=== PATIENT | male | born 1945 | race Caucasian/White ===

== ENCOUNTER 2023-08-21 21:34 | Emergency (ER) | payer MEDICARE, SELFPAY ==
[2023-08-21 21:40] VITALS: BP 121/73; PULSE 52; RESP 16; TEMP 36; O2SAT 98; BMI 22.3
--- NOTE | 2023-08-21 21:55 | CRLHL7_ITS ---
For Patients: As a result of the 21st Century Cures Act, medical imaging exams and procedure reports are released immediately into your electronic medical record. You may view this report before your referring provider. If you have questions, please contact your health care provider. Indication: RT FLANK PAIN Technique: CT abdomen/pelvis without IV contrast. Comparison: None Findings: Lower thorax: The inferior heart is at the upper limits of normal in size. No pericardial effusion. Coronary artery calcifications. No focal airspace consolidation, pleural effusion, or pneumothorax. Minimal bibasilar linear atelectatic changes. No suspicious pulmonary nodules or masses. Abdomen/pelvis: The liver, gallbladder and biliary system, spleen, pancreas, and bilateral adrenal glands are unremarkable in appearance. The kidneys are normal in size. No obvious renal masses. The ureters are difficult to track on this exam. There is a punctate 3 millimeter calcification seen just lateral to the IVC (series number 2, image 73), which may represent a small obstructing stone in the right ureter with mild right hydronephrosis. Suspected small parapelvic cysts on the left. The bladder is decompressed and not well evaluated on this exam. The prostate and visualized external genitalia are within normal limits. Small hiatal hernia. No evidence of bowel obstruction or inflammation. The appendix is normal in appearance. Redundant colon. No free air. No pathologically enlarged lymph nodes throughout the abdomen or pelvis. Minimal calcific atherosclerosis of the aortoiliac system. No abdominal aortic aneurysm. Mild ectasia of the bilateral common iliac arteries. Soft tissue/musculoskeletal: Small fat containing umbilical hernia. No acute fracture or malalignment. 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 There are degenerative changes seen in the spine. No suspicious osseous lesions. Impression: 1. The ureters are difficult to track on this exam. There is a punctate 3 millimeter calcification seen just lateral to the IVC (series number 2, image 73), which may represent a small obstructing stone within the right ureter with mild right hydronephrosis. 2. Likely a few simple appearing parapelvic cyst in the left kidney, incompletely characterized, to correlate with prior imaging if available. Otherwise, these could be further assessed with an outpatient CT or MR with a renal protocol. Please note that all CT scans at this facility use dose modulation, iterative reconstruction, and/or weight-based dosing when appropriate to reduce radiation dose to as low as reasonably achievable. Dictated by Huan Patterson MD @ 08/21/2023 11:07:24 PM (Electronically Signed)
--- NOTE | 2023-08-21 22:03 | ED.GENADULT ---
HPI - General Adult General Chief complaint: Nausea/Vomiting Stated complaint: Vomiting, back pain Time Seen by Provider: 08/21/23 21:47 Source: patient Mode of arrival: ambulatory Limitations: no limitations History of Present Illness HPI narrative: 78-year-old male history of atrial fibrillation on chronic anticoagulation therapy comes in today with vomiting flank pain. He states that it started about an hour ago. He states that he had dinner was resting at home when all of a sudden he felt very nauseated and vomited multiple times. Soon as he finished vomiting he felt this acute mid back pain that was bilateral however was much stronger on the right. He states that now he feels better, the vomiting has resided but the right flank pain remains. He denies chest pain or shortness of breath. He denies anterior abdominal pain. The flank pain does not really radiate anywhere. He states that he has chronic difficulty urinating - he no longer has an urge to urinate so he just has to empty his bladder every few hours there remembering to do so. He states that he has not urinated since this episode happen, he does not endorse any blood in his urine earlier today. No diarrhea or constipation. He is not lightheaded or dizzy. He denies a headache. He denies any vertiginous symptoms. He denies any fevers or chills, but states that he feels a little chilly in the ER. Related Data Home Medications ?Medication ?Instructions ?Recorded ?Confirmed atorvastatin .ROUTE 08/21/23 warfarin .ROUTE 08/21/23 Previous Rx's ?Medication ?Instructions ?Recorded tamsulosin 0.4 mg capsule (Flomax) 0.4 mg PO DAILY #30 caps 08/21/23 Allergies Allergy/AdvReac Type Severity Reaction Status Date / Time No Known Drug Allergies Allergy Verified 08/21/23 21:45 Review of Systems Status of ROS: Reports: 10 or more systems reviewed and unremarkable except as noted in History and below PFSH PFS Social History Non-prescribed substance use: denies use Exam Narrative: Exam Narrative: Well-nourished well-developed patient in no acute distress. Alert and oriented. Answers questions appropriately. Mood and affect are appropriate. Thoughts are goal oriented and rational. No tangential or magical thinking noted. Patient speaks in full sentences without needing to catch his breath. HEENT: Normocephalic atraumatic. Pupils are equally round reactive to light. Extraocular muscles are intact. Conjunctivae are moist without any icterus noted. Moist mucous membranes. Posterior pharynx is normal. Neck is soft. Cardiovascular: Heart is irregularly irregular, S1 and S2 are present heart sounds are distant. Lungs: Clear to auscultation bilaterally no wheezes rhonchi or rales are appreciated. Patient takes deep breaths without any discomfort. Abdomen: Soft and nontender nondistended with normal bowel sounds. No guarding or rebound. Patient does have right-sided CVA tenderness, none on the left. Extremities: Bilateral lower extremities are without edema. Skin: Well perfused without any obvious rashes. Const: Vital Signs, click to edit/add: Vital Signs - 24 hr 08/21/23 21:40 Temperature 96.8 F L Pulse Rate [Pulse Oximeter] 52 L Respiratory Rate 16 Blood Pressure [Ri ght Upper Arm] 121/73 Pulse Oximetry 98 Oxygen Delivery Me thod Room Air Course Course ED Course: IV is established and patient received a low dose of Toradol and IV fluids. Lactate is elevated at 2.8. CBC does not show an elevated white cell count, normal hemoglobin at 14.4, normal platelet count. Chemistries are unremarkable, total bilirubin slightly elevated at 1.9. LFTs are unremarkable. CRP is less than 0.5. Normal lipase. Abdominal CT does show probable 3 mm stone on the right side with mild hydronephrosis. Patient feeling significantly improved after treatment. Vital Signs Vital signs: Initial Vital Signs Temperature 96.8 F L 08/21/23 21:40 Temperature Source Temporal Artery Scan 08/21/23 21:40 Pulse Rate 52 L 08/21/23 21:40 Pulse Rhythm Irregular 08/21/23 21:40 Respiratory Rate 16 08/21/23 21:40 Blood Pressure 121/73 08/21/23 21:40 Blood Pressure Mean 89 08/21/23 21:40 Blood Pressure Position Sitting 08/21/23 21:40 Pulse Oximetry 98 08/21/23 21:40 Oxygen Delivery Method Room Air 08/21/23 21:40 Vital Signs Temperature 96.8 F L 08/21/23 21:40 Pulse Rate 52 L 08/21/23 21:40 Respiratory Rate 16 08/21/23 21:40 Blood Pressure 121/73 08/21/23 21:40 Pulse Oximetry 98 08/21/23 21:40 Oxygen Delivery Method Room Air 08/21/23 21:40 Temperature 96.8 F L 08/21/23 21:40 Pulse Rate 52 L 08/21/23 21:40 Respiratory Rate 16 08/21/23 21:40 Blood Pressure 121/73 08/21/23 21:40 Pulse Oximetry 98 08/21/23 21:40 Oxygen Delivery Method Room Air 08/21/23 21:40 Medications Administered Medications: Generic Name Dose Route Start Last Admin Trade Name Freq PRN Reason Stop Dose Admin Sodium Chloride 1,000 mls @ 1,000 mls/hr 08/21/23 22:00 08/21/23 22:13 0.9 % Sodium Chloride 1000 Ml IV 08/21/23 22:59 1,000 mls/hr .Q1H [place] Administration Ketorolac Tromethamine 15 mg 08/21/23 21:56 08/21/23 22:17 Ketorolac 15 Mg/Ml Inj IVP 08/21/23 21:57 15 mg ONCE ONE Administration Medical Decision Making MDM Narrative Medical decision making narrative: 78-year-old male with a right sided kidney stone. Will send the patient home with hydrocodone, Flomax. Follow-up as needed. Lab Data Lab results reviewed: Yes I reviewed the patient's lab results Labs: Lab Results 08/21/23 Range/Units 22:09 WBC 7.74 (4.50-11.00) K/uL RBC 4.20 L (4.30-5.90) m/uL Hgb 14.4 (13.5-17.5) gm/dL Hct 43.2 (37.0-53.0) % MCV 103 H (80-100) fL MCH 34 (26-34) pg MCHC 33 (32-36) gm/dL RDW Coeff of Cristina 13.0 (11.5-15.5) % Plt Count 163 (140-440) K/uL Neut % (Auto) 82.4 H (42.0-72.0) % Lymph % (Auto) 9.8 L (20-44) % [place] % (Auto) 5.6 (0.0-11.0) % Eos % (Auto) 0.9 (0.0-7.0) % Baso % (Auto) 0.1 (0.0-3.0) % Neut # (Auto) 6.40 (1.7-7.0) K/uL Lymph # (Auto) 0.80 L (0.90-2.90) K/uL [place] # (Auto) 0.40 (0.00-0.90) K/UL Eos # (Auto) 0.07 (0.00-0.50) K/uL Baso # (Auto) 0.01 (0.00-0.30) K/uL Abs Immat Gran (auto) 0.09 (0.00-0.30) K/uL Imm/Tot Granulo (auto) 1.2 % Sodium 139 (135-149) mmol/L Potassium 4.3 (3.6-5.1) mmol/L Chloride 105 (96-114) mmol/L Carbon Dioxide 25 (20-32) mmol/L Anion Gap 9 (7-15) mEq/L BUN 19 (7-30) mg/dL Creatinine 1.2 (0.5-1.5) mg/dL Estimated Creat Clear 52.92 Estimated GFR 62 ml/min Glucose 168 H (60-115) mg/dL Lactate 2.8 H (0.5-1.9) mmol/L Calcium 9.6 (8.4-10.6) mg/dL Total Bilirubin 1.9 H (0.1-1.5) mg/dL Direct Bilirubin 0.3 (0.0-0.5) mg/dL AST 47 H (12-35) U/L ALT 35 (4-50) U/L Alkaline Phosphatase 77 (40-150) U/L C-Reactive Protein < 0.5 L (0.5-1.0) mg/dL Total Protein 7.5 (6.0-8.3) g/dL Albumin 5.0 (3.3-5.0) g/dL Lipase 124 (23-300) U/L Imaging Data CT scan - abdomen: Attestation: I have reviewed the pertinent imaging results. Radiologist's impression: CT abdomen/pelvis without IV contrast. Comparison: None Findings: Lower thorax: The inferior heart is at the upper limits of normal in size. No pericardial effusion. Coronary artery calcifications. No focal airspace consolidation, pleural effusion, or pneumothorax. Minimal bibasilar linear atelectatic changes. No suspicious pulmonary nodules or masses. Abdomen/pelvis: The liver, gallbladder and biliary system, spleen, pancreas, and bilateral adrenal glands are unremarkable in appearance. The kidneys are normal in size. No obvious renal masses. The ureters are difficult to track on this exam. There is a punctate 3 millimeter calcification seen just lateral to the IVC (series number 2, image 73), which may represent a small obstructing stone in the right ureter with mild right hydronephrosis. Suspected small parapelvic cysts on the left. The bladder is decompressed and not well evaluated on this exam. The prostate and visualized external genitalia are within normal limits. Small hiatal hernia. No evidence of bowel obstruction or inflammation. The appendix is normal in appearance. Redundant colon. No free air. No pathologically enlarged lymph nodes throughout the abdomen or pelvis. Minimal calcific atherosclerosis of the aortoiliac system. No abdominal aortic aneurysm. Mild ectasia of the bilateral common iliac arteries. Soft tissue/musculoskeletal: Small fat containing umbilical hernia. No acute fracture or malalignment. 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 There are degenerative changes seen in the spine. No suspicious osseous lesions. Impression: 1. The ureters are difficult to track on this exam. There is a punctate 3 millimeter calcification seen just lateral to the IVC (series number 2, image 73), which may represent a small obstructing stone within the right ureter with mild right hydronephrosis. 2. Likely a few simple appearing parapelvic cyst in the left kidney, incompletely characterized, to correlate with prior imaging if available. Otherwise, these could be further assessed with an outpatient CT or MR with a renal protocol. Discharge Plan Discharge Clinical Impression: Kidney stone Patient Disposition: Home, Self-Care Condition: Stable Additional Instructions: Start taking Flomax once daily. Okay to take pain medication as needed. This pain medication is a narcotic and can cause dizziness, drowsiness, increased risk of fall and constipation-be careful if/ when you take it. This stone is small enough that it should pass on its own. If you develops intractable pain, cannot keep down any fluids for long periods of time because of intractable vomiting or you develop a fever-you should return to the ER right away. Follow-up with your primary care provider in approximately 1 week. [place] sent to [facility], 8 tablets. Flomax sent to pharmacy. Prescriptions: New tamsulosin [Flomax] 0.4 mg capsule 0.4 mg PO DAILY Qty: 30 0RF No Action warfarin .ROUTE atorvastatin [Lipitor] .ROUTE Follow Up/Referrals: Hector Treadwell MD [Primary Care Provider] - Stand Alone Forms: [employer] Info Instructions
[2023-08-21 22:13] LABS: Lactate* 2.8 mmol/L (0.5-1.9)
[2023-08-21] MEDS: 0.9 % SODIUM CHLORIDE 1000 ml 1,000 ML IV (22:13)
[2023-08-21] MEDS: KETOROLAC 15 MG/ML inj IVP (22:17)
[2023-08-21 22:40] LABS: Basophils Absolute Auto 0.01 K/uL (0.00-0.30); Basophils Percent Auto 0.1 % (0.0-3.0); Eosinophils Absolute Auto 0.07 K/uL (0.00-0.50); Eosinophils Percent Auto 0.9 % (0.0-7.0); Hematocrit 43.2 % (37.0-53.0); Hemoglobin* 14.4 gm/dL (13.5-17.5); Immature Granulocytes Abs Auto 0.09 K/uL (0.00-0.30); Immature Granulocytes Pct Auto 1.2 %; Lymphocytes Percent Auto 9.8 % (20-44); Mean Corpuscular HGB Conc 33 gm/dL (32-36); Mean Corpuscular Hemoglobin 34 pg (26-34); Mean Corpuscular Volume 103 fL (80-100); Monocytes Percent Auto 5.6 % (0.0-11.0); Neutrophils Percent Auto 82.4 % (42.0-72.0); Platelet Count* 163 K/uL (140-440); White Blood Count* 7.74 K/uL (4.50-11.00)
[2023-08-21 22:42] LABS: Chloride* 105 mmol/L (96-114); Slide Review Reflex No
[2023-08-21 22:43] LABS: Potassium* 4.3 mmol/L (3.6-5.1); Sodium* 139 mmol/L (135-149)
[2023-08-21 22:45] LABS: Creatinine* 1.2 mg/dL (0.5-1.5); Est. Creatinine Clearance* 52.92; Estimated Glomerular Filt Rate 62 ml/min
[2023-08-21 22:46] LABS: Alanine Aminotransferase* 35 U/L (4-50); Alkaline Phosphatase* 77 U/L (40-150); Anion Gap 9 mEq/L (7-15); Aspartate Amino Transferase* 47 U/L (12-35); Bilirubin Direct* 0.3 mg/dL (0.0-0.5); Bilirubin Total* 1.9 mg/dL (0.1-1.5); Blood Urea Nitrogen* 19 mg/dL (7-30); Calcium* 9.6 mg/dL (8.4-10.6); Carbon Dioxide* 25 mmol/L (20-32); Glucose* 168 mg/dL (60-115); Lipase* 124 U/L (23-300); Total Protein* 7.5 g/dL (6.0-8.3)
[2023-08-21 22:49] LABS: C Reactive Protein* < 0.5 mg/dL (0.5-1.0)
== END 2023-08-21 23:30 | disposition home or self-care (01) ==
PROVIDERS: Emergency Provider Family Medicine; PCP Family Medicine
DX: N20.0 Calculus of kidney (principal)
CPT/HCPCS: 36415; 74176; 80048; 80076; 81001; 83605; 83690; 85025; 86140; 96361; 96374; 99284; J1885; J7030

== ENCOUNTER 2025-02-20 10:35 | Emergency (ER) | payer MEDICARE, SELFPAY ==
[2025-02-20 10:38] VITALS: BP 143/86; PULSE 82; RESP 16; TEMP 36.4; O2SAT 98
--- OUTSIDE RECORDS SUMMARY | 2025-02-20 10:38 | XMS_ITS | Clinical Summary ---
Author Organization [facility] Address [address] [place] [address] Care Team Providers Care Linen Tech Name Role Phone Hector Treadwell MD Primary Care Provider Allergies No known active allergies Medications MedicationSigDispense QuantityRefillsLast FilledStart DateEnd DateStatus fluocinonide 0.05% topical (LIDEX) 0.05 % gel Indications:Dermatitis due to food taken internallyAPPLY TOPICALLY TO AFFECTED AREA(S) 2 TIMES DAILY IF NEEDED. 30 g 4Active MULTIVITAMIN ORAL Take by mouth.Active latanoprost (XALATAN) 0.005 % ophthalmic solution Place 1 Drop into both eyes at bedtime.4Active atorvastatin (LIPITOR) 20 mg tablet Indications:Mixed hyperlipidemiaTake 1 Tablet (20 mg) by mouth at bedtime. 90 Tablet 5Active warfarin (COUMADIN) 5 mg tablet Indications:Chronic atrial fibrillation (HC),Anticoagulation monitoring, INR range 2-3TAKE BY MOUTH 5 MG (5 MG X 1) EVERY DAY IN THE EVENING OR DIRECTED 90 Tablet 5Active warfarin (COUMADIN) 5 mg tablet Indications:Chronic atrial fibrillation (HC),Anticoagulation monitoring, INR range 2-3Take by mouth 5 mg (5 mg x 1) every day in the evening OR as directed 100 Tablet 5104/18/2024Discontinued Active Problems ProblemNoted DateDiagnosed DateBasal cell carcinoma (BCC) of skin of right ear 04/13/2024Kiraheel melendez09/03/2023 Overview (09/03/2023): 08/2023- passed on own, not able to collect stone Primary osteoarthritis of left knee10/26/2022Family history of early CAD 09/06/2021 Overview (09/06/2021): Father, aunt, uncle (paternal) Mixed pnmwhupldgdjns47/29/2020Chronic atrial qwoigaxmjzri55/29/2020 Anticoagulation monitoring, INR range 2-305Prostate vdwvre9408/08/2017 Cancer Staging: Clinical: Unsigned Overview (06/27/2020): S/p prostatectomy 2017 - follows with [place] [facility]. PSA raised 2020- On radiation Radiation colitis Encounters DateTypeDepartmentCare LhkySpmpgnkfroh06/08/2025Refill [address] [address] Hector Treadwell MD Refill Request (Warfarin)02/02/2025Telephone [facility] [address] [facility] [address] [place] [address] Cardiology, Anw Appointment (/)01/20/2025 11:40 AM CSTOrders Only [facility] [address] [place] [address] <No scans attached>01/20/2025 10:50 AM CSTAncillary Procedure [facility] [address] [place] [address] 01/20/2025 10:15 AM CSTOrders Only [address] [address] <No scans attached>01/20/2025 9:45 AM CSTOffice Visit [address] [address] Shannon Pepe PA Hematuria (Blood in urine started 01/14/25, fresh red color at start of stream and then turns brownat the end of urine stream, this morning urine had blood clots, no pain and no odor )01/20/2025Telephone [facility] [address] [place] [address] Shannon Pepe PA Hnmrowl2201/20/2025nticoagulation (warfarin) [address] [address] Nurse, Ahg Anticoag Nthsacsaeefbewq43/12/3530Ywdzno64/11/2025Nurse Triage [facility] [address] [place] [address] Hector Treadwell MD Fhldrpfwb64/14/2025Telephone [address] [address] Hector Treadwell MD Anticoagulation (review)12/18/2024 11:30 AM CDTOrders Only [address] [address] Lab12/18/2024nticoagulation (warfarin) [address] [address] Nurse, g Anticoag Lcvdpfhlgytqzko18/10/2025Travelfrom Last 3 Months Immunizations ImmunizationAdministration DatesNext DueAMB INFLUENZA IIV3 (AGE 65+ YRS) PF (Flu Clinic Only)5COVID-19 vaccine (Moderna 100mcg/0.5mL) PF, V06/02/2020, 05/06/2020Influenza A (H1N1), Ewxwlqpuwja52/18/2010Influenza, High-dose Gskbgrptcae20/22/2024,12/05/2018,01/03/2018,12/14/2016,01/12/2016Influenza, High-dose Quadrivalent Dlzoiaymakh23/17/2023,12/22/2021,12/25/2019Influenza, Inactivated AIIV4 (Age 65+ Years) Preserv Free02/21/2021neumococcal Conj 20- valent (Prevnar 20)04/13/2024Pneumococcal Poly,23-Valent (Pneumovax)05/23/2011 RSV, Recombinant ADJ Reconstituted (Arexvy 120MCG/0.5mL)01/25/2023Tdap07/03/2017 Zoster (Shingrix-RZV, recombinant)12/05/2018,08/22/2018 Family History Medical HistoryRelationNameCommentsCoronary artery diseaseFatherdied 59Relation NameStatusCommentsFather Social History Tobacco UseTypesPacks/DayYears UsedDateSmoking Tobacco: NeverSmokeless Tobacco: NeverAlcohol UseStandard Drinks/WeekCommentsYes4 (1 standard drink = 0.6 oz pure alcohol)4/weekPHQ-2AnswerDate RecordedPHQ-2 TOTAL CLDLR706Social ConnectionsAnswerDate RecordedDo you often feel lonely or isolated from those around you?lcohol UseAnswerDate RecordedHow often do you have a drink containing alcohol?How many drinks containing alcohol do you have on a typical day when you are drinking?How often do you have five or more drinks on one occasion?Financial Resource StrainAnswer Date RecordedDifficulty of Paying Living Lcgaatmm615/03/2025Difficulty of Paying Living ExpensesNot on file04/13/2024Food InsecurityAnswerDate RecordedDo you worry your food will run out before you are able to buy more? Transportation NeedsAnswerDate RecordedDoes lack of transportation keep you from medical appointments?Does lack of transportation keep you from work, meetings or getting things that you need?Housing StabilityAnswerDate RecordedWhat is your housing situation today?UtilitiesAnswerDate RecordedDo you have trouble paying for utilities (for example, heat, electricity, water, phone)?Sex and Gender InformationValueDate RecordedSex Assigned at BirthNot on fileLegal JeoDlhr8803/24/2012 8:08 AM HADOOP JAVA DEVELOPER Gender IdentityNot on fileSexual OrientationNot on file Last Filed Vital Signs Vital SignReadingTime TakenCommentsBlood Ucrlgxrj355/8801/20/2025 9:43 AM HADOOP JAVA DEVELOPER Mxpkw288401/20/2025 9:43 AM MUKPvljjgwvvvx40.7 ??C (98.1 ??F)01/20/2025 9:43 AM CSTRespiratory Fsrz104208/24/2024 8:13 AM CDTOxygen Zmxtjgrfgb133%01/20/2025 9:43 AM CSTInhaled Oxygen Concentration--Utrefe49.9 kg (174 lb)01/20/2025 9:43 AM HADOOP JAVA DEVELOPER Ddkucu781.3 cm (5' 9)01/20/2025 9:43 AM CSTBody Mass Index25.7103/22/2024 9:43 AM HADOOP JAVA DEVELOPER Plan of Treatment DateTypeDepartmentCare Team (Latest Contact Info)Rtyxhmtkoem46/06/2026 10:15 AM CSTOrders Only [facility] [address] [place] [address] 04/01/2025 9:30 AM CSTOffice Visit [facility] [address] [facility] [address] [place] [address] Maciej Neri MD [address] [facility] [address] [place] [address] Health MaintenanceDue DateLast DoneCommentsDepression screening for age 12+ , 03/21/2023, 03/21/2023, Additional history existsMedicare Wellness for age 65+, 03/20/2023, 06/28/2021, Additional history existsCOVID-19 vaccine series (8 - Moderna risk 2024- season) , 01/31/2024, 01/25/2023, Additional history existsBMI (ht and wt on same day) for age 18+, 04/13/2024, 03/20/2023, Additional history existsTetanus sydaliq80Zoster (shingles) series for age 50+Mpvncfqza40/27/2019, 08/22/2018RSV vaccine for adults or xthjmflixNwkauajgp24/17/2023Hepatitis C screening for age 18-79Completed 04/13/2024Pneumococcal series for age 50+Vqodyvhgx28/03/2025, 05/23/2011 Influenza BcokgvaGocyfjdhi41/24/2025, 01/31/2024, 02/21/2021, Additional history existsHepatitis B series for 19+Aged OutNo longer eligible based on patient's age to complete this topic Procedures Procedure NamePriorityDate/TimeAssociated DiagnosisCommentsCREATININE,ISTAT Phdphml8601/20/2025 10:53 AM HADOOP JAVA DEVELOPER Observation or evaluation for suspected condition CT ABDOMEN PELVIS WSTAT103/22/2024 10:50 AM HADOOP JAVA DEVELOPER Prostate cancer (HC) Painless hematuria INR,YDYIDkjxcsd80/12/2025 10:08 AM HADOOP JAVA DEVELOPER Chronic atrial fibrillation (HC) Anticoagulation monitoring, INR range 2-3 URINALYSIS XVDUFLTHFEMFeyfkln90/12/2025 10:06 AM HADOOP JAVA DEVELOPER Painless hematuria URINE VKCIGSXZroyfst24/12/2025 10:06 AM HADOOP JAVA DEVELOPER Painless hematuria INR,JBTMWpvbhos31/10/2025 11:14 AM CDT Chronic atrial fibrillation (HC) Anticoagulation monitoring, INR range 2-3 ANTI POSClkrpgo60/03/2025 3:08 PM HADOOP JAVA DEVELOPER Encounter for hepatitis C screening test for low risk patient from Last 3 Months or Most Recently Relevant to Health Maintenance Results * POCT Creatinine (01/20/2025 10:53 AM HADOOP JAVA DEVELOPER)ComponentValueRef RangeTest Method Analysis TimePerformed AtPathologist SignaturePOCT,CREATININE, ISTAT1.20.6 - 1.3 mg/dL01/20/2025 11:04 AM [facility] Specimen (Source)Anatomical Location / LateralityCollection Method / Volume Collection TimeReceived TimeBloodBLOOD SPECIMEN / UnknownQuest Collect / Narmvud9101/20/2025 10:53 AM CST01/20/2025 10:53 AM HADOOP JAVA DEVELOPER Narrative Authorizing ProviderResult TypeResult StatusShannon Pepe PACHEMISTRYFinal ResultPerforming OrganizationAddressCity/State/ZIP CodePhone Number [facility] [address] [place] [address], [facility] [address] [place] [address], [place] * CT ABDOMEN PELVIS W (01/20/2025 10:50 AM HADOOP JAVA DEVELOPER)Anatomical RegionLaterality ModalityAbdomen, Pelvis, AORTA, LIVER, SPLEENComputed TomographySpecimen (Source)Anatomical Location / LateralityCollection Method / VolumeCollection TimeReceived Time01/20/2025 11:24 AM HADOOP JAVA DEVELOPER Impressions 01/20/2025 11:24 AM HADOOP JAVA DEVELOPER 1. Significantly enlarged heart. This is multichamber enlargement most notably involving the right heart. Bibasilar opacities probably atelectasis or scarring. 2. Mild ascites, primarily perihepatic. The etiology of this is uncertain the might be related to right heart disease. 3. No renal cortical mass. No hydronephrosis or hydroureter. The bladder is decompressed. There is bladder wall thickening which may be due to cystitis. 4. Faint area of abnormal enhancement in the left lateral bladder wall. This does not appear to be excreted contrast from the kidneys and could represent a subtle enhancing lesion in the wall of the bladder. Follow-up direct evaluation is recommended. 5. The prostate appears to be surgically absent. 6. No lymphadenopathy. No evidence of osseous metastatic disease. Please note that all CT scans at this facility use dose modulation, iterative reconstruction, and/or weight-based dosing when appropriate to reduce radiation dose to as low as reasonably achievable. Dictated by Andre Ray MD @ 01/20/2025 11:24:44 AM (Electronically Signed) Narrative 01/20/2025 11:24 AM HADOOP JAVA DEVELOPER For Patients: As a result of the Cures Act, medical imaging exams and procedure reports are released immediately into your electronic medical record. You may view this report before your referring provider. If you have questions, please contact your health care provider. INDICATION: Prostate cancer now with painless hematuria. COMPARISON: None TECHNIQUE: CT examination of the abdomen and pelvis was performed following the uneventful intravenous administration of 80 cc of Omnipaque 350. Thin section axial images were obtained from the lung bases through the pubic symphysis. ??Oral contrast was not administered. ?? Please note that all CT scans at this facility use dose modulation, iterative reconstruction, and/or weight-based dosing when appropriate to reduce radiation dose to as low as reasonably achievable. FINDINGS: LUNG BASES: The heart is significantly enlarged. This is multi chamber enlargement but most notablyinvolves the right heart.Bibasilar opacities are probably due to atelectasis or scarring. LIVER/BILIARY SYSTEM:The liver is normal in size and configuration. There is no focal mass and there is no intra- or extra hepatic biliary ductal dilatation.Trace ascites, primarily perihepatic. The etiology of this ascites is not visible on the exam. The gallbladder appears normal ADRENALS: Normal KIDNEYS, URETERS and BLADDER:The kidneys are normal in size. There is no visible renal cortical mass or calculus. The ureters are of normal caliber. The bladder is not well evaluated. The bladder is decompressed with wall thickening which can be seen in cystitis. On axial images 193 through 195, there is a vague hyperdensity associated with the left lateral wall of the bladder. Since the contrasthas not yet entered the collecting system on this exam, I am presuming that this is an enhancing mucosal abnormality which should be further evaluated directly. SPLEEN:Normal appearance. PANCREAS: Appears normal. RETROPERITONEUM and MESENTERY: No mass or adenopathy. Atherosclerosis. Diffuse ectasia of the aortoiliac system. No aortic aneurysm. No retroperitoneal or pelvic lymphadenopathy noted. GASTROINTESTINAL SYSTEM: There is no evidence of diverticulitis, colitis, mechanical obstruction, or appendicitis. The small bowel as visualized appears normal.Diffuse colonic fecal retention. PELVIS: The prostate appears to be surgically absent.. OSSEOUS STRUCTURES and ABDOMINAL WALL: No evidence of osseous metastatic disease. There is bilateral L5 spondylolysis without evidence of spondylolisthesis.No significant abdominal wall defect. OTHER: No free fluid or free air. Procedure Note Andre Ray MD - 01/20/2025 For Patients: As a result of the 21st Century Cures Act, medical imagingexams and procedure reports are released immediately into your electronicmedical record. You may view this report before your referring provider.If you have questions, please contact your health care provider. INDICATION: Prostate cancer now with painless hematuria. COMPARISON: None TECHNIQUE: CT examination of the abdomen and pelvis was performed following theuneventful intravenous administration of 80 cc of Omnipaque 350. Thinsection axial images were obtained from the lung bases through the pubicsymphysis. Oral contrast was not administered. Please note that all CT scans at this facility use dose modulation,iterative reconstruction, and/or weight-based dosing when appropriate toreduce radiation dose to as low as reasonably achievable. FINDINGS: LUNG BASES: The heart is significantly enlarged. This is multi chamber enlargement but most notably involves the right heart.Bibasilar opacitiesare probably due to atelectasis or scarring. LIVER/BILIARY SYSTEM:The liver is normal in size and configuration. Thereis no focal mass and there is no intra- or extra hepatic biliary ductal dilatation.Trace ascites, primarily perihepatic. The etiology of thisascites is not visible on the exam. The gallbladder appears normal ADRENALS: Normal KIDNEYS, URETERS and BLADDER:The kidneys are normal in size. There is novisible renal cortical mass or calculus. The ureters are of normalcaliber. The bladder is not well evaluated. The bladder is decompressedwith wall thickening which can be seen in cystitis. On axial images 193through 195, there is a vague hyperdensity associated with the leftlateral wall of the bladder. Since the contrast has not yet entered thecollecting system on this exam, I am presuming that this is an enhancingmucosal abnormality which should be further evaluated directly. SPLEEN:Normal appearance. PANCREAS: Appears normal. RETROPERITONEUM and MESENTERY: No mass or adenopathy. Atherosclerosis.Diffuse ectasia of the aortoiliac system. No aortic aneurysm. Noretroperitoneal or pelvic lymphadenopathy noted. GASTROINTESTINAL SYSTEM: There is no evidence of diverticulitis, colitis, mechanical obstruction, or appendicitis. The small bowel as visualizedappears normal.Diffuse colonic fecal retention. PELVIS: The prostate appears to be surgically absent.. OSSEOUS STRUCTURES and ABDOMINAL WALL: No evidence of osseous metastaticdisease. There is bilateral L5 spondylolysis without evidence ofspondylolisthesis.No significant abdominal wall defect. OTHER: No free fluid or free air. IMPRESSION: 1. Significantly enlarged heart. This is multichamber enlargement mostnotably involving the right heart. Bibasilar opacities probablyatelectasis or scarring. 2. Mild ascites, primarily perihepatic. The etiology of this is uncertainthe might be related to right heart disease. 3. No renal cortical mass. No hydronephrosis or hydroureter. The bladderis decompressed. There is bladder wall thickening which may be due tocystitis. 4. Faint area of abnormal enhancement in the left lateral bladder wall.This does not appear to be excreted contrast from the kidneys and couldrepresent a subtle enhancing lesion in the wall of the bladder. Follow-updirect evaluation is recommended. 5. The prostate appears to be surgically absent. 6. No lymphadenopathy. No evidence of osseous metastatic disease. Please note that all CT scans at this facility use dose modulation,iterative reconstruction, and/or weight-based dosing when appropriate toreduce radiation dose to as low as reasonably achievable. Dictated by Andre Ray MD @ 01/20/2025 11:24:44 AM (Electronically Signed) Authorizing ProviderResult TypeResult StatusShannon Pepe PACTFinal Result * (ABNORMAL) INR - POCT [95441.2] - Standing Order (01/20/2025 10:08 AM HADOOP JAVA DEVELOPER) Only the most recent of2 resultswithin the time period is included. ComponentValueRef RangeTest MethodAnalysis TimePerformed AtPathologist Signature INR2.3(H)ratio01/20/2025 10:18 AM [facility]: INRs >2.9 may be falsely elevated in patients receiving either unfractionated Heparin or Low Molecular Weight Heparin. Follow up testing in a hospital laboratory may be helpful if clinically indicated. INR results of > or = 5.0 should be verified using the standard venipuncture procedure. Reference Range ? 0.9-1.1 Moderate-intensity Warfarin Therapy 2.0-3.0 Higher-intensity Warfarin Therapy ?? 3.0-4.0 PROTHROMBIN TIMEP27.9(H)10.5 - 13.1 sec01/20/2025 10:18 AM [facility]: Point of care fingerstick Prothrombin Time/INR results may vary from venous Prothrombin Time/INR methodologies. Any results exhibiting inconsistency with the patient's clinical status should be repeated using a venous Prothrombin Time/INR method. Specimen (Source)Anatomical Location / LateralityCollection Method / Volume Collection TimeReceived TimeBloodBLOOD SPECIMEN / UnknownQuest Collect / Unknown 01/20/2025 10:08 AM CST01/20/2025 10:08 AM HADOOP JAVA DEVELOPER Narrative Authorizing ProviderResult TypeResult StatusLofab Treadwell MDLABORATORY Final ResultPerforming OrganizationAddressCity/State/ZIP CodePhone Number [facility] [address] [place] [address], [facility] [address] [place] [address] * (ABNORMAL) URINALYSIS MICROSCOPIC (01/20/2025 10:06 AM HADOOP JAVA DEVELOPER)ComponentValueRef RangeTest MethodAnalysis TimePerformed AtPathologist SignatureWBC UA0-5< OR = 5 /HPF01/21/2025 3:17 AM CSTQUEST DIAGNOSTICSRBC UAPACKED(A)< OR = 2 /HPF 01/21/2025 3:17 AM CSTQUEST DIAGNOSTICSBACTERIA UANONE SEENNONE SEEN /HPF 01/21/2025 3:17 AM CSTQUEST DIAGNOSTICSHYALINE CASTNONE SEENNONE SEEN /LPF 01/21/2025 3:17 AM CSTQUEST DIAGNOSTICSSQUAMOUS EPITHELIAL CELLS UANONE SEEN< OR = 5 /HPF01/21/2025 3:17 AM CSTQUEST DIAGNOSTICSNOTE UASEE NOTE01/21/2025 3:17 AM CSTQUEST DIAGNOSTICSComment: This urine was analyzed for the presence of WBC, RBC, bacteria, casts, and other formed elements. Only those elements seen were reported. Specimen (Source)Anatomical Location / LateralityCollection Method / Volume Collection TimeReceived TimeUrineURINE SPECIMEN / UnknownNon-Blood / Unknown 01/20/2025 10:06 AM CST01/20/2025 11:02 AM HADOOP JAVA DEVELOPER Narrative Authorizing ProviderResult TypeResult StatusShannon DE LEONURINEFinal Result Performing OrganizationAddressCity/State/ZIP CodePhone Number [facility] [address] [address], * URINE CULTURE (01/20/2025 10:06 AM HADOOP JAVA DEVELOPER)ComponentValueRef RangeTest Method Analysis TimePerformed AtPathologist SignatureCULTURE, URINE, ROUTINESEE NOTE 01/21/2025 10:01 PM CSTQUEST DIAGNOSTICSComment: ??CULTURE, URINE, ROUTINE ?Micro Number: ?[id number] ??Test Status: ? Final ??Specimen Source: ?? Urine, clean catch ??Specimen Quality: ??Adequate ??Result: ?No Growth Specimen (Source)Anatomical Location / LateralityCollection Method / Volume Collection TimeReceived TimeUrineURINE SPECIMEN / UnknownNon-Blood / Unknown 01/20/2025 10:06 AM CST01/20/2025 10:46 AM HADOOP JAVA DEVELOPER Narrative Authorizing ProviderResult TypeResult StatusBrlsia MENDOZAIOLOGYFinal ResultPerforming OrganizationAddressCity/State/ZIP CodePhone Number [facility] [address] [address], * ANTI HCV (04/13/2024 3:08 PM HADOOP JAVA DEVELOPER)ComponentValueRef RangeTest MethodAnalysis TimePerformed AtPathologist SignatureHEPATITIS C ANTIBODYNON-REACTIVE NON-REACTIVEQuest [facility] Private HospitaleComment: HCV antibody was non-reactive. There is no laboratory evidence of HCV infection. In most cases, no further action is required. However, if recent HCV exposure is suspected, a test for HCV RNA (test code 93733) is suggested. For additional information please refer to http://education.Spoqa.OneShift/faq/SQO62g6 (This link is being provided for informational/ educational purposes only.) Specimen (Source)Anatomical Location / LateralityCollection Method / Volume Collection TimeReceived TimeBloodBLOOD SPECIMEN / Ksymtpk1304/13/2024 3:08 PM HADOOP JAVA DEVELOPER 04/13/2024 3:09 PM HADOOP JAVA DEVELOPER Narrative Authorizing ProviderResult TypeResult StatusLofab Treadwell MDSEND OUTS Final ResultPerforming OrganizationAddressCity/State/ZIP CodePhone Number [facility] [address] [place] [address], [facility] [address] [place] [address] from Last 3 Months or Most Recently Relevant to Health Maintenance Insurance * Guarantor: Carroll Farley TypeRelation to PatientDate of BirthPhone Billing AddressPersonal/SchotyGqgn1945 [address] [place] [address] Advance Directives TypeDate RecordedPatient RepresentativeExplanationHealthcare Directive09/07/2015 6:47 AM * Full Code (Latest Code Status on File) Date ActivatedDate InactivatedComments06/13/2022 11:39 AM06/13/2022 3:31 PMQuestion AnswerCommentsCode Status Discussion:* Reviewed Preferences * Full Code Date ActivatedDate InactivatedComments08/08/2017 9:17 AM08/09/2017 3:02 PM * Full Code Date ActivatedDate InactivatedComments09/07/2015 7:09 AM09/07/2015 3:10 PM Care Teams Team MemberRelationshipSpecialtyStart [place] [address] [place] [address] PCP - GeneralFamily Practice06/30/19
--- OUTSIDE RECORDS SUMMARY | 2025-02-20 10:38 | XMS_ITS | CCD ---
Author Name Interface, [id number] lity Address [address] [place] [address] [facility] Address [address] [place] [address] Reason for Visit Social History Date Name Value 11/07/2024 Sex Unknown
--- NOTE | 2025-02-20 10:45 | ED.GENADULT ---
HPI - General Adult General Chief complaint: Urogenital Problems, Male Stated complaint: blockage in urinary track Time Seen by Provider: 02/20/25 10:43 History of Present Illness HPI narrative: Patient presents to the emergency department complaining of inability to urinate. Patient states about a month ago patient saw their regular doctor who referred him to urology. Patient states this week bleeding has picked up a bit and now this morning has been unable to urinate. Patient states pressure is building in his bladder and when he attempts to urinate only a small amount of blood will come out. Had prostate removed in the past. 79-year-old man presenting to the emergency department with concern inability to urinate. Has also been experiencing hematuria. 5 years ago prostatectomy with prostate cancer. January 18 began bleeding and then resolved. Was referred ultimately to Urology. Last INR nearly a month ago was 2. Takes Coumadin for chronic atrial fibrillation. Began bleeding again intermittently at the beginning of stream 3 days ago. No lightheadedness or shortness of breath. Related Data Home Medications ?Medication ?Instructions ?Recorded ?Confirmed atorvastatin .Route 08/21/23 02/02/25 warfarin .Route 08/21/23 02/02/25 Allergies Allergy/AdvReac Type Severity Reaction Status Date / Time No Known Drug Allergies Allergy Verified 02/20/25 10:43 Review of Systems Status of ROS: Reports: 6 or more systems reviewed and unremarkable except as noted in History and below [facility] Medical History Retinal detachment, left ?H33.22 - Serous retinal detachment, left eye (ICD-10) Primary osteoarthritis of left knee ?M17.12 - Unilateral primary osteoarthritis, left knee (ICD-10) Prostate cancer ?C61 - Malignant neoplasm of prostate (ICD-10) 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 (ICD-10) Mixed hyperlipidemia ?E78.2 - Mixed hyperlipidemia (ICD-10) BCC (basal cell carcinoma), ear ?C44.211 - Basal cell carcinoma of skin of unspecified ear and external auricular canal (ICD-10) Anticoagulation monitoring, INR range 2-3 ?Z79.01 - residential (current) use of anticoagulants (ICD-10) Chronic atrial fibrillation ?I48.20 - Chronic atrial fibrillation, unspecified (ICD-10) Surgical History History of prostatectomy (08/08/17) ?Z90.79 - Acquired absence of other genital organ(s) (ICD-10) History of cystoscopy (09/07/15) ?Z98.890 - Other specified postprocedural states (ICD-10) Family History Father Coronary artery disease Social History Smoking Status: Never smoker Do you use any of these nicotine containing products: None Second hand tobacco smoke exposure: No Non-prescribed substance use: denies use Exam Narrative: Exam Narrative: Pleasant. NAD though subtly restless. Breathing easily. Skin is warm and dry. Extremities are well perfused without edema. Abdomen is soft with some fullness noted and need to urinate triggered with palpation of the suprapubic area. Const: Vital Signs, click to edit/add: Vital Signs - 24 hr 02/20/25 10:38 Temperature 97.5 F L Pulse Rate [Right Pulse Oximeter] 82 Respiratory Rate 16 Blood Pressure [Ri ght Upper Arm] 143/86 H Pulse Oximetry 98 Oxygen Delivery Me thod Room Air Documenting provider has reviewed patient's vital signs: yes Course Vital Signs Vital signs: Initial Vital Signs Temperature 97.5 F L 02/20/25 10:38 Temperature Source Temporal Artery Scan 02/20/25 10:38 Pulse Rate 82 02/20/25 10:38 Pulse Rhythm Regular 02/20/25 10:38 Pulse Strength 3+ Normal 02/20/25 10:38 Respiratory Rate 16 02/20/25 10:38 Blood Pressure 143/86 H 02/20/25 10:38 Blood Pressure Mean 105 02/20/25 10:38 Blood Pressure Position Sitting 02/20/25 10:38 Pulse Oximetry 98 02/20/25 10:38 Oxygen Delivery Method Room Air 02/20/25 10:38 Vital Signs Temperature 97.5 F L 02/20/25 10:38 Pulse Rate 82 02/20/25 10:38 Respiratory Rate 16 02/20/25 10:38 Blood Pressure 143/86 H 02/20/25 10:38 Pulse Oximetry 98 02/20/25 10:38 Oxygen Delivery Method Room Air 02/20/25 10:38 Temperature 97.5 F L 02/20/25 10:38 Pulse Rate 82 02/20/25 10:38 Respiratory Rate 16 02/20/25 10:38 Blood Pressure 143/86 H 02/20/25 10:38 Pulse Oximetry 98 02/20/25 10:38 Oxygen Delivery Method Room Air 02/20/25 10:38 Medications Administered Medications: Discontinued Medications Generic Name Dose Route Start Last Admin Trade Name Juancarlos PRN Reason Stop Dose Admin Lidocaine HCl 6 ml 02/20/25 11:23 02/20/25 11:25 Lidocaine Hcl 2 % Jelly (Top) Sterile UR 02/20/25 11:24 6 ml ONCE ONE Administration Medical Decision Making MDM Narrative Medical decision making narrative: Presumably hematuria is contributing to decreased urinary output. We did bladder scan for 500 mL. I suspect there is more there than that. Need to check INR as well. Mr. Farley is proposing straight cathing himself as he has done in the past. I discussed likely need for duration of catheter and to reassess depending on how much urine actually is obtained. We did place Awad catheter ultimately resulting in nearly 600 mL of urine out. Blood stained. Urinalysis with blood but without indication of infection otherwise. He feels much improved. INR is 2.9 I would still recommend leaving Awad in place for a few days. Mr. Farley is in agreement with this. Instructed on how to flush catheter of necessary. Given supplies. See patient discharge plan for further discussion Consider checking in with your primary care provider for lab work or cardiac imaging in anticipation of your cardiology visit; or waiting until this appointment is just fine. Continue to elevate your legs at rest. Consider placement of below the knee compression stockings when up and about. Your INR today was 2.9. Sounds like it is creeping up. Might want to check it again a little sooner, particularly because your bleeding. Check in with your primary care provider about that. Would follow-up also for catheter removal around the middle of this coming week. Be seen sooner for marked increase in bleeding, plugged catheter not approved by flushing as demonstrated, fever. You had close to 600 mL of urine retained in your bladder. Your urinalysis looks to be bloody but not necessarily infected. We will culture your urine however. Medical Records Medical records reviewed: Yes I reviewed the patient's medical records Lab Data Labs: Lab Results 02/20/25 02/20/25 Range/Units 11:20 11:30 INR 2.90 H (0.91-1.10) Urine Color Brown A (Yellow) Urine Appearance Turbid A (Clear) Urine pH 6.0 (5.0-8.5) Ur Specific [place] 1.030 (1.000-1.030) Urine Protein 3+ A (Negative) Urine Glucose (UA) Negative (Negative) Urine Ketones Negative (Negative) Urine Blood 3+ A (Negative) Urine Nitrite Negative (Negative) Urine Bilirubin 3+ A (Negative) Urine Urobilinogen 0.2 (0.2-1.0) Ur Leukocyte Esterase Trace A (Negative) Urine RBC >100 A (0-2) Urine WBC 0-2 (0-5) Ur Squamous Epith Cells Few (None-Few) Urine Bacteria Many A (None) RBC Casts Moderate A (None) Discharge Plan Discharge Clinical Impression: Acute urinary retention, Hematuria Patient Disposition: Home, Self-Care Condition: Improved Additional Instructions: Consider checking in with your primary care provider for lab work or cardiac imaging in anticipation of your cardiology visit; or waiting until this appointment is just fine. Continue to elevate your legs at rest. Consider placement of below the knee compression stockings when up and about. Your INR today was 2.9. Sounds like it is creeping up. Might want to check it again a little sooner, particularly because your bleeding. Check in with your primary care provider about that. Would follow-up also for catheter removal around the middle of this coming week. Be seen sooner for marked increase in bleeding, plugged catheter not approved by flushing as demonstrated, fever. You had close to 600 mL of urine retained in your bladder. Your urinalysis looks to be bloody but not necessarily infected. We will culture your urine however. Prescriptions: No Action warfarin .Route atorvastatin [Lipitor] .Route Follow Up/Referrals: Hector Treadwell MD [Primary Care Provider, [facility]] Stand Alone Forms: Statusly Info Instructions
--- OUTSIDE RECORDS SUMMARY | 2025-02-20 11:04 | XMS_ITS | CCD ---
Author Name Interface, [id number] lity Address [address] [place] [id number] [facility] Address [address] [place] [id number] Reason for Visit Social History Date Name Value 11/07/2024 Sex Unknown
--- OUTSIDE RECORDS SUMMARY | 2025-02-20 11:04 | XMS_ITS | CCD ---
Author Name Interface, [id number] lity Address [address] [place] [id number] [facility] Address [address] [place] [id number] Reason for Visit Social History Date Name Value 11/07/2024 Sex Unknown
[2025-02-20] MEDS: lidocaine HCL 2 % JELLY (TOP) STERILE 6 ML UR (11:25)
[2025-02-20 11:50] LABS: INR 2.90 (0.91-1.10); Prothrombin Time 31.5 Seconds
[2025-02-20 11:55] LABS: Appearance Urine Turbid (Clear)
--- NOTE | 2025-02-20 12:41 | PC.NURSE ---
changed over to leg bag drainage, discharge reviewed, pt verbalizes understanding
== END 2025-02-20 12:47 | disposition home or self-care (01) ==
PROVIDERS: Emergency Provider Family Medicine; PCP Family Medicine
DX: R33.9 Retention of urine, unspecified (principal); R31.9 Hematuria, unspecified
CPT/HCPCS: 36415; 51702; 81001; 85610; 87086; 99283; 99284

== ENCOUNTER 2025-02-24 22:38 | Emergency (ER) | payer MEDICARE, SELFPAY ==
--- OUTSIDE RECORDS SUMMARY | 2025-02-24 22:41 | XMS_ITS | Data Portability ---
Author Organization [place] [facility] [place] [facility] Address [address] [facility] [address] [place] [address] Care Team Providers Care Table Games Dual Rate Supervisor Name Role Phone NIDHI SAHU Primary Care Provider [phone] Assessment Encounter Date Assessment Date Assessment LastModified by Organization Details LastModified Time 02/24/2025 02/24/2025 79-year-old male presents for evaluation of gross hematuria, prostate cancer, radiation cystitis. Prior prostatectomy around 2019, pT3a, positive margin. Ultimately had recurrence and underwent salvage radiation in 2020. PSA detectable 0.08 on 06/2023, PSA most recently stable at 0.1 on 12/2024. Onset of gross hematuria 01/2025. CT with contrast negative for nephrolithiasis, hydronephrosis, orrenal mass bilaterally. Reviewed CT, last office visit note, PSA, radiation oncology gsrxlpmeixkzn43Akr qozqmpdyl56/17/2025 15:26:30 Plan of Treatment Reminders Order DateSubmit DateProviderLast Modified ByOrganization DetailsLast Modified TimeDetailsAppointmentsNEW PATIENT 15104/27/2024 01:45PMLAURA CABRAL MDNot availableNot availableNot availableLabPSA, total, serum or srctkq0805/10/2020 05/10/2020[facility], [address], [address], [place], [address], 03 12:18:11PSA, total, serum or rwgeeh18ATHENAMinn[facility], [address], [address], [place], [address], 104/14/2019 14:59:02Referral undersea & hyperbaric medicine referral - Please call the pt to setup a consult. 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 THENAFAXHyperbaric Medicine [facility], [address], [place], [address], 104/27/2024 16:26:03radiation oncologist referral - PLEASE CONTACT PATIENT TO SCHEDULE CONSULT FOR PROSTATE CANCER [facility], [address], [address], [place], [address], 005/28/2020 11:48:47ProceduresNone recorded.Surgeries None recorded.ImagingCT, [email or web address], [facility] , [place], [address], 02/24/2025 15:22:39Medication OrdersNone recorded. Patient TargetsNo targets recorded. Patient Instructions Encounter Date Encounter Id Patient Instructions Last Modified By Organization Details Last Modified Time 02/24/2025 [id number] 79-year-old male presents for evaluation of gross hematuria, prostate cancer, radiation cystitis. Prior prostatectomy around 2019, pT3a, positive margin. Ultimately had recurrence and underwent salvage radiation in 2020. PSA detectable 0.08 on 06/2023, PSA most recently stable at 0.1 on 12/2024. Onset of gross hematuria 01/2025. CT with contrast negative for nephrolithiasis, hydronephrosis, orrenal mass bilaterally. Prostate cancer: PSA remains low and rising very very slowly, can continue to monitor. 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 We will obtain CT urogram to conclude hematuria workup. Radiation cystitis: Concern for radiation changes within the bladder as the source of hematuria. Will refer to hyperbaric oxygen treatment and we will follow-up in 3 months. Patient able to void after the cystoscopy. Counseled to maintain high level of hydration and to present to emergency department if clot retention recurs. fhplwfzo38Eoz gawhhnbse69/17/2025 15:27:22 Reason for Referral PLEASE CONTACT PATIENT TO [facility]OM[facility] CONSULT FOR PROSTATE CANCER Referring Physician: Ha Cabral, Urology, Encounter Date: 05/17/2020Undersea & Hyperbaric Medicine Referral for Radiation cystitis Please call the pt to setup a consult. 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 Referring Physician: Laura Cabral, Urology, Encounter Date: 02/24/2025 Results Created Date Observation Date Name Description Value Unit Range Abnormal Flag Note LastModifiedBy Organization Detail LastModifiedTime 11/03/2019 11/03/2019 PSA, total, serum or plasma PSA, total 0.1 3 NG/mL 0.00-4.00 Not AvailableM[facility] [address], [address], [address] 14:28:27 PSA, total, serum or plasmaPSA, total0.17NG/mL0.00-4.00Not AvailableMincoatesville [facility] [address] [facility] [address], [address], [address]/14/2019 14:59:02 /1PSA, total, serum or plasmaPSA, total0.24NG/mL0.00-4.00Not Available[facility] [address] [facility] [address], [address], [address] 12:18:11 /5CT, abdomen + pelvis, w/ contrastNo observation recorded. bvkvh5Jgh Dbftkkdgz52/15/2025 15:53:43 Result Notes None recorded. Problems Name Problem SNOMED Code Status Onset Date Resolution Date Notes Provider Name and Address Organization Details Recorded Time Neurogenic urinary bladder 091759863 Active 5 N31.2 : Neurogenic bladderNot PobtpzcadLvqhvzTqijxq98/10/2020 23:41:45Abnormal findings on microbiological examination of efbyb126241134Ndajhi18/28/9927H11.7 : Abnormal findings on microbiological examination of urineNot Available ZyjczjQasoeo54/10/2020 23:41:45Prostate specific antigen above reference range [id number]/28/1021A60.2 : Raised prostate specific antigenNot Available AsvibsIcyudu65/10/2020 23:41:45Frank epvhetvpk574587310Xjkwfu85/24/4639A43.0 : Antonio hematuriaMICYUE CABRAL MD [address] [facility],[address], [address], [facility] Zmwgpld66/17/2025 15:21:00Clinical yxamjzfVvntyv60/01/3860E15.0 : Calculus in diverticulum of bladderNot IjndjxtjsIhcroaSszpil53/10/2020 23:41:45 Sensation as if urinary bladder still emnl817722405Dvtiqr48/04/1499F57.14 : Sensation as if bladder still fullNot NjviaxpkjHkfgaxJbjnsh69/10/2020 23:41:46 Clinical qsdmcudYchnys11/21/2618B71.1 : Desire for urinationNot Available YfwpqrOuhxpu93/10/2020 23:41:46Clinical kyozcxxYlojcr23/21/3654V11.9 : Retention of urineNot FwxlsglrzCgwftqOyotny38/10/2020 23:41:46Malignant neoplasm of trfufqxe745763874Lldoft76/27/1910H58 : Malignant tumor of prostateNot Available PqxpnjZmgyre68/10/2020 23:41:45Genuine stress vmvkwxhghozb19902843Yqptvf 10/10/2017N39.3 : Genuine stress incontinenceNot FmlftgqgiSpfyizYbujdo31/10/2020 23:41:45Erectile dysfunction following radical efnvhgjgsphwl612267957731660 Oyubka2110/10/2017N52.31 : Erectile dysfunction following radical prostatectomyNot XfgiuacsfJojaihEagjlb43/10/2020 23:41:45History of malignant neoplasm of cdfatcrz636611039Vyfabj12/19/3072B61.46 : History of malignant neoplasm of prostateNot AehzrbqfcEcyfepRbdyyc78/10/2020 23:41:45Radiation wzpcdkeg38187092 Rhkcbw9302/24/2025LAURA CABRAL MD [address] [facility],[address] [place] [address], [address], [facility] Rjlmgvh84/17/2025 15:20:06 Problem Notes None recorded. Procedures Surgical History Date Name Laterality Status Provider Name and Address Organization Details Recorded Time 02/24/2025 COMPLEX VISIT completedLAURA CABRAL MD [address] [place] [address], [address], [place] [address]/27/2024 15:25:1615CystoscopyMalecompleted LAURA CABRAL MD [address] [place] [address], [address], [place] [address]/27/2024 15:26:05043Diagnostic sigmoidoscopy completedNot [facility] Note02/20/2025 20:55:3903iagnostic colonoscopycompletedNot [facility] Note02/20/2025 20:55:39031Past Data ReviewedcompletedToolya Cabral MD [address] [place] [address], [address], [facility]05/17/2020 13:44:51031Blood Draw/BUSINESS RULES ANALYST/PSA RESULTS completedStacy GodwinJoseFair[facility] Hospital [facility]05/10/2020 10:50:4512 Blood Draw/BUSINESS RULES ANALYST/PSA RESULTScompletedNaiad [facility] Uustyts70/04/2020 11:52:5308Blood Draw/BUSINESS RULES ANALYST/PSA RESULTScompletedEmmar CostelloSt. Elizabeths Medical Centery11/03/2019 11:40:24008/18/2017Laps surg dkal7bsl rpbic radcompletedNot OtcpaojbkEeecthFngttr94/11/2020 12:09:Biopsy of prostatecompletedNot VhcfihtjeWdjpvjHeolvw35/11/2020 12:09:Njx aa&/strd other pn/branch completedNot TtebkmsoqKdphjjOygshf08/11/2020 12:09:Colonoscopy and biopsycompletedNot XflskhkttZdacszQvoqrd54/11/2020 12:09:Us urine capacity measurecompletedNot QfrgytzzpGrczfgPhzkuo61/11/2020 12:09:40005/01/2017 Us urine capacity measurecompletedNot VrsgqbtvjDepromKsutoj93/11/2020 12:09:40 04/02/2017Us urine capacity measurecompletedNot QtdogoifqFbtydyKpprgp39/11/2020 12:09:39009/25/2016Us urine capacity measurecompletedNot [facility] 08/20/2019 12:09:39104/25/2015Us urine capacity measurecompletedNot Available EkibhkYefxdl06/11/2020 12:09:40104/25/2015Insert bladder cathetercompletedNot EcilkrotbQjjfqoLmfdib50/11/2020 12:09:40012/02/2015CystourethroscopycompletedNot GlrhocgjoBaapigKppkck95/11/2020 12:09:39010/13/2015Electro-uroflowmetry first completedNot ApfonvgqoPbjnmeCecuqx29/11/2020 12:09:39010/13/2015Intraabdominal pressure testcompletedNot DheqbjjyhDrupnuMpvzyx11/11/2020 12:09:40010/13/2015 Cystometrogram w/vp rheumatology&upcompletedNot DnkokbinwRxzaedLdllnw52/11/2020 12:09:40 10/13/2015Anal/urinary muscle studycompletedNot NuimhlcnaPkqdsmHroece31/11/2020 12:09:40008/10/2015CystourethroscopycompletedNot VquttphkbXuhjjdEwjchr03/11/2020 12:09:39008/24/2013Us urine capacity measurecompletedNot [facility] 08/20/2019 12:09:39104/23/2012Us urine capacity measurecompletedNot Available PwudlkKlnucc90/11/2020 12:09:40008/18/2012Us urine capacity measurecompletedNot EyiyfipsxAgrnisCkkuox07/11/2020 12:09:40006/09/2012Us urine capacity measure completedNot SptgiyyyoJcdxrhDtxfng32/11/2020 12:09:Prostatic rf thermotxcompletedNot NfvskldswDkgdpkFssuxd38/11/2020 12:09:Insert bladder cathetercompletedNot SdkkdcgorFmgmrjFgqkor32/11/2020 12:09: Us urine capacity measurecompletedNot ItoyavadwKokagqSmpwmt51/11/2020 12:09:40 12/11/2011Us urine capacity measurecompletedNot EybbocejaCazweyBegjnz89/11/2020 12:09:Us urine capacity measurecompletedNot AvailableRutherford [facility] 08/20/2019 12:09:Us urine capacity measurecompletedNot Available TakidiDetkpm42/11/2020 12:09:CystourethroscopycompletedNot Available YkzdxmIpmhat14/11/2020 12:09:Us urine capacity measurecompletedNot KffdptemfEoxvlaCjfgpm51/11/2020 12:09:40Removal of prostatecompletedNot [facility] Note02/20/2025 20:55:39Removal of sperm duct(s)completedNot [facility] Note02/20/2025 20:55:39 Imaging Results None recorded. Procedure Notes None recorded. Medical Equipment None Reported. Allergies Allergen ID Allergen Name Allergen Category Reaction Reaction Severity Criticality Documentation Date Start Date Code Code System Note Provider Name and Address Organization Details Recorded Time [id number] cow milk allergenic extract food,medicati on Not available Not available Not /11/[id number] HsunftsaoVlempiTctngy85/11/2020 00:03:58 Medications Name Sig Start Date Stop Date Status Note LastModified by Organization Details LastModified Time latanoprost 0.005 % eye drops INSTILL 1 DROP IN BOTH EYES NIGHTLY activeNot AvailableNot AvailableNot Availableatorvastatin 40 mg tabletTAKE 1/2 TABLET BY MOUTH AT BEDTIMEactiveNot AvailableNot AvailableNot Available atorvastatin 20 mg tabletTAKE 1 TABLET (20 MG) BY MOUTH AT BEDTIME.activeNot AvailableNot AvailableNot Availablesildenafil 100 mg tabletTAKE 1 TABLET (100 MG) BY MOUTH ONCE DAILY IF NEEDED FOR ERECTILE DYSFUNCTION. TAKE 30 MINUTES TO 4 HOURS BEFORE SEXUAL ACTIVITY. MAX 100MG/activeNot AvailableNot AvailableNot Availablewarfarin 5 mg tabletTAKE BY MOUTH 5 MG (5 MG X 1) EVERY DAY IN THE EVENING OR DIRECTEDactiveNot AvailableNot AvailableNot Availablewarfarin 1 mg tabletPLEASE SEE ATTACHED FOR DETAILED LIGKZQMOJT47/17/5970qaqfhjevd9769-60-88 HN: Patient reports no longer takingNot AvailableNot AvailableNot Available ipratropium bromide 42 mcg (0.06 %) nasal sprayINHALE 2 SPRAYS IN BOTH NOSTRILS THREE TIMES DAILY.activeNot AvailableNot AvailableNot Availablelatanoprost2.5ml of 0.005% 1/dayactiveNot AvailableNot AvailableNot Availablemultivitamin MULTIVITAMIN 1/dayactiveNot AvailableNot AvailableNot AvailableShingrix (PF) 50 mcg/0.5 mL intramuscular suspension, kit05/17/2020ompletedNot AvailableNot AvailableNot AvailableFluzone High-Dose 2019-20 (PF) 180 mcg/0.5 mL intramuscular tdgpsif3205/17/2020ompletedNot AvailableNot AvailableNot Available Fluzone High-Dose Quad 2019- (PF) 240 mcg/0.7 mL IM syringePHARMACY OQMWONTAHVGR33/09/2021ompletedNot AvailableNot AvailableNot Available Vitals Date Recorded Body height Body mass index (BMI) Body weight Provider Name and Address Organization Details Last Updated DateTime 05/17/2020 180.34 cm 23.7 kg/m2 62590.7 g Cadence Sood [facility] 05/17/2020 11:55:32 Date Recorded Body height Body mass index (BMI) Body weight Provider Name and Address Organization Details Last Updated DateTime 11/13/2019 180.34 cm 23 kg/m2 17910.74 g Nelia Esposito [facility] 11/13/2019 10:19:40 Date Recorded Body weight Body mass index (BMI) Body height Provider Name and Address Organization Details Last Updated DateTime 02/24/2025 10573.74274 88811 g 24.4 kg/m2 177.8 cm Not Available Health Note 02/24/2025 12:18:45 Social History Question Answer Notes LastModified by Organization D etails LastModified Time Tobacco Smoking Status Never Smoker Not AvailableHealth Note02/20/2025 20:55:39Do You Have An Advance Directive?Yes [email or web address] not btmghuxmq21/13/2025What Is Your Level Of Caffeine Consumption?NoneAPI-685Information not dagllfjes77/13/2025How Much Tobacco Do You Chew?NoneAPI-685Information not rwugpidss18/13/2025Have You Or Anyone In Your House Tested Positive For COVID-19 In The Past 14 Days?Govjrtviyrl61 Information not zvwkeeqwg29/09/2021Have You Or Anyone In Your House Been Exposed To COVID-19 In The Past 14 Days?Lmsnloxtybx27Qhgcdqiisqh not rojhckpia49/09/2021 Have You Or Anyone In Your Home Experienced Symptoms Of COVID 19 Such As Fever >100.4, ShortnessOf Breath, Difficulty Breathing, Or A Cough?Vayhqjxtizu31 Information not wntrwdiuv94/09/2021Have You Traveled Outside Of [place] In The Past 30 Days?Psbqkgnkrbn60Irlztheiqeh not xxngdidyu55/09/2021RaceWhite sbhusal1.63Information not ckhfqssze64/11/2020EthnicityNot / chvsbweoj78Lgqvtgudlei not nfxyolevf00/09/2021referred LanguageEnglish peaplmula08Ddotwnrhoty not qozvaiamy54/09/2021Marital StatusMarriedsbhusal1.63 Information not epvrcbpjj26/11/2020Do You Have A Medical Power Of Clinical Biostatistics Director?Yes [email or web address] not eaycvthsu75/13/2025What Was The Date Of Your Most Recent Tobacco Screening?02/24/2025PI-685Information not uzrojouix48/13/2025What Is Your Relationship Status?MarriedAPI-685Information not mykopnsno14/13/2025re You Sexually Active?YesAPI-685Information not /13/2025How Many Days In The Past Year Have You Consumed 5 Or More Drinks?0API-685Information not ilaylfhfo90/13/2025 Sex: Unknown Functional Status Question Answer Note LastModified by Organization D etails LastModified Time Do you use any illicit or recreational drugs? No [email or web address] not siqzzkmqx27/13/2025What is your level of alcohol consumption?OccasionalAPI-685Information not lceovfjgv05/13/2025Do you or have you ever used smokeless tobacco?Never used smokeless tobaccoAPI-685Information not pbrinrvba69/13/2025Do you or have you ever used e-cigarettes or vape?Never used electronic cigarettesAPI-685Information not sbphhhvky83/13/2025 Mental Status None recorded. Family History Relationship Description Onset Age of this Age Resolved Age Notes LastModified by Organization Details LastModified Time Unspecified Relation Family history of diabetes mellitus [email or web address] /13/2025 20:55:38 Notes:Thyroid problems:Mothe r Medical History Condition Response Sexually Transmitted Infection N Diabetes N Other N Bleeding Disorder N High Blood Pressure N Kidney Stones Y High Cholesterol Y GERD/Acid Reflux N Heart Disease Y Cancer N Depression N Lung Disease N Immunizations Vaccine Type Date Status Note Provider Nam e and Address Organization Details Recorded Time pneumococcal, unspecified formulation 03/11/2019 com pleted Not AvailableHealth Note02/20/2025 20:55:41influenza, unspecified formulation 5completedNot AvailableHealth Note02/20/2025 20:55:07YKZY-GZU-3 (COVID- 19) vaccine, QDYCMBHUUSC43/15/2025completedNot AvailableHealth Note02/20/2025 20:55:41zoster live03/11/2019completedNot AvailableHealth Note02/20/2025 20:55:41Novel Achpfrwao-K9F7-80, all dvhcmtsbesck01/18/2010completedNot YeyxgkdfoHkxnrjGnevdx03/17/2025 12:19:22Influenza, high-dose, trivalent, PF 01/12/2016completedNot PtvqyszmiVdgmroJomwto02/17/2025 12:19:22Influenza, high- dose, trivalent, PF12/14/2016completedNot PvpjyyturQceygoSahgfc99/17/2025 12:19:29Upbn2707/03/2017completedNot KychnlocrBbkiqbElhxiq39/17/2025 12:19:22 Influenza, high-dose, trivalent, PF01/03/2018completedNot Available[facility] 02/24/2025 12:19:22zoster cwfunzpxzbd66/14/2019completedNot Available ZipxmpMeyhhl51/17/2025 12:19:22zoster psmyyjlbiyr71/27/2019completedNot CzszowzyjAbeyxcHalmgu08/17/2025 12:19:22Influenza, high-dose, trivalent, PF 12/05/2018completedNot SqsicjfaiGrgvynFzxghq58/17/2025 12:19:22Influenza, high- dose, quadrivalent, PF12/25/2019completedNot LcavfsqnlHagreaCogldn85/17/2025 12:19:22COVID-19, mRNA, LNP-S, PF, 100 mcg/0.5mL dose or 50 mcg/0.25mL dose 05/06/2020ompletedNot MgupjxftzPmfvlaVberck93/17/2025 12:19:22COVID-19, mRNA, LNP-S, PF, 100 mcg/0.5mL dose or 50 mcg/0.25mL dose06/02/2020ompletedNot DnmatuebnZhazyuDgccho15/17/2025 12:19:22COVID-19, mRNA, LNP-S, PF, 100 mcg/0.5mL dose or 50 mcg/0.25mL dose01/17/2021ompletedNot GjixxhwflEjekrwTxnsjo27/17/2025 12:19:22Influenza, adjuvanted, quadrivalent, PF02/21/2021ompletedNot Available AyuxvvEiehli37/17/2025 12:19:22COVID-19, mRNA, LNP-S, bivalent, PF, 30 mcg/0.3 mL dose12/22/2021ompletedNot LmrugnoozDxwatgAyojgo45/17/2025 12:19:22Influenza, high-dose, quadrivalent, PF12/22/2021ompletedNot AvailableAthNav[facility] 02/24/2025 12:19:22COVID-19, mRNA, LNP-S, PF, 50 mcg/0.5 mL01/25/2023ompleted Not GarbakqraAazafvSretya28/17/2025 12:19:22Influenza, high-dose, quadrivalent, PF01/25/2023ompletedNot AzsurttwgRyvbueXiycgz69/17/2025 12:19:22RSV, recombinant, protein subunit RSVpreF, adjuvant reconstituted, 0.5 mL, PF 01/25/2023ompletedNot VgtyutcgiHujlqbEinxnd49/17/2025 12:19:22Influenza, high- dose, trivalent, PF01/31/2024ompletedNot BrdjlhgisZzmcbqGtaqsn98/17/2025 12:19:22COVID-19, mRNA, LNP-S, PF, gabi-sucrose, 30 mcg/0.3 mL01/31/2024 completedNot ZffjgzyttLjxnnfTgruue97/17/2025 12:19:22Pneumococcal conjugate PCV20, polysaccharide TEU713 conjugate, adjuvant, PF02/5completedNot XxgymtwfyPclpkcTwfvec51/17/2025 12:19:22pneumococcal polysaccharide PPV23 05/23/2011completedAilyn [facility] Tpdmcgb2012/08/2020 10:22:06 Past Encounters Encounter ID Performer Location Encounter Start Date Encounter Closed Date Diagnosis/Indication Diagnosis SNOMED-CT Code Diagnosis ICD10 Code Diagnosis IMO Codes Diagnosis Note [id number] Ha Cabral MD [address] [address] 11/03/2019 11:09:01 11/03/2019 11:45:58 History of malignant neoplasm of prostate 087792573 Z85.46 [id number] Cabral [address] [address] 11/13/2019 10:12: 10:55:32Malignant neoplasm of bzwopepl184814406I74 psa recurrence. t3 disease suggest local recurrence. psa is low. discuss rad tx vs obsewrve. electsto follow. candier rad on consult.[id number] Cabral MD [address] [address] 02/12/2020 11:50:14104/14/2019 11:54:41History of malignant neoplasm of prostate 654149725F83.46 [id number] Cabral [address] [address] 05/10/2020 10:48:15005/10/2020 10:51:44History of malignant neoplasm of prostate 321808413A03.46 [id number] Cabral [address] [address] 05/17/2020 11:28:49005/17/2020 16:26:28Malignant neoplasm of bmwrcxnn099397900H61 psa recurrence. t3 disease PSA doubling time of 6 months with a relatively low PSA suggests localized disease.. We discussed radiation previously and he elected to monitor his PSAs. Now with a risingnumber I think a radiation consultation would be appropriate for consideration for adjuvant local ra diation. He would like to pursue this. We discussed the implication of the PSA and the limitations with which we can identify where the PSA rise is stemming from. Again I think pelvic radiation BX next most appropriate step here.[id number] LAURA CABRAL, MDMetro_[place] [address] [place] [address],[address] [address] 02/24/2025 12:16:56104/27/2024 15:27:35Malignant neoplasm of wnyrmvyb898656370L32 Radiation ynosmmml68997998V94.40 [id number] Antonio kqjrplcab683152972F63.0 [id number] Health Concerns Section Related Observation LastModified by Organization Detai ls LastModified Time None Recorded Concern Status LastModified by Organization Details LastModified Time None Recorded Advance Directives Directive Y: Payers Insurance Date Sequence Insurance Name Policy Number Policy Matthews Covered Member ID Matthews Member ID Guarantor Name 02/19/2025 2 [employer] - DOS PRIOR TO 2 Carroll Saavedra [id number] Laura FarleyUCARE - DOS PRIOR TO 2021 (MEDICAID REPLACEMENT - HMO)Carroll Saavedra [id number] Laura [facility] HospitalUC[facility] - DOS ON OR AFTER 19 (MEDICARE REPLACEMENT/ADVANTAGE - PPO)[id number] [facility] Notes Date Note Type Note Provider Name and Address Orga nization Details Recorded Time 11/13/2019 text/html ROS as noted in the [facility] prostate cancer. s/p davrp. T3 a pos margin. neg LN. psa 0.13. last january. feels well no complaints. bone pain or weight loss. prior DAVRP. uses [facility] for sexual activity. hesitant , weak stream, nocturia times one. seldom incontinence.Ha Cabral MD [address] [facility],[address], [place], [address], [facility] Ajhninl7711/13/2019 10:44:1503/11/2020text/htmlROS as noted in the [facility] prostate cancer. s/p davrp. T3 a pos margin. neg LN. . now psa rise to 0.24 we had discussed radiation oncology consult. he was considering. feels well no complaints. bone pain or weight loss. prior DAVRP. uses [facility] for sexual activity. hesitant , weak stream, nocturia times one. seldom incontinence.Ha Cabral MD [address] [facility],[address], [place], [address], [facility] Atnmiqd5305/17/2020 13:44:5912text/html Chief complaint:Blood in ogyyc66-sewr-zrk male presents for evaluation of gross hematuria. Prior prostatectomy around 2019, pT3a, positive margin. Ultimately had recurrence and underwent salvage radiation in 2020. PSA detectable 0.08 on 06/2023, PSA most recently stable at 0.1 on 12/2024. Onset of gross hematuria 01/2025. CT with contrast negative for nephrolithiasis, hydronephrosis, orrenal mass bilaterally. Patient has been managed with indwelling catheter that he intermittently self irrigates. Hematuria:Began:4 Weeks agoAssociated symptoms:Trouble starting to urinate LAURA CABRAL MD [address] [facility],[address], [place], [address], [facility] Tkmzfyv22/17/2025 15:27:32
--- OUTSIDE RECORDS SUMMARY | 2025-02-24 22:41 | XMS_ITS | CCD ---
Author Name Interface, [email or web address] lity Address [address] [place] [address] [facility] Address [address] [place] [id number] Reason for Visit Social History Date Name Value 11/07/2024 Sex Unknown
--- OUTSIDE RECORDS SUMMARY | 2025-02-24 22:41 | XMS_ITS | Clinical Summary ---
Author Organization [facility] [facility] Address [address] [place] [address] Care Team Providers Care Mason Liner Name Role Phone Hector Treadewll MD Primary Care Provider Allergies No known [...] Overview (09/06/2021): Father, aunt, uncle (paternal) Mixed yznmwukozolglt54/29/2020Chronic atrial biysfmfubgvj61/29/2020 Anticoagulation monitoring, INR range 2-305Prostate reijgi8908/08/2017 Cancer Staging: Clinical: Unsigned Overview (06/27/2020): S/p prostatectomy 2017 - follows with [place] [facility]. PSA raised 2020- On radiation Radiation colitis Encounters DateTypeDepartmentCare CitvQbdtrwuhnce60/08/2025Refill [address] [address] Hector Treadwell MD Refill Request (Warfarin)02/02/2025Telephone [facility] [address] [facility] [address] [place] [address] Cardiology, Anw Appointment (/)01/20/2025 11:40 AM CSTOrders Only [facility] [id number] [place] [address] <No scans attached>01/20/2025 10:50 AM CSTAncillary Procedure [facility] [id number] [place] [address] 01/20/2025 10:15 AM CSTOrders Only [address] [address] <No scans attached>01/20/2025 9:45 AM CSTOffice Visit [address] [address] Shannon Pepe PA Hematuria (Blood in urine started 01/14/25, fresh red color at start of stream and then turns brownat the end of urine stream, this morning urine had blood clots, no pain and no odor )01/20/2025Telephone [facility] [id number] [place] [address] Shannon Pepe PA Hpltgxg3201/20/2025nticoagulation (warfarin) [address] [address] Nurse, Ahg Anticoag Bpwdetfuxuchjfj70/12/1159Hezrax36/11/2025Nurse Triage [facility] [address] [place] [address] Hector Treadwell MD Mrovyjtng54/14/2025Telephone [address] [address] Hector Treadwell MD Anticoagulation (review)12/18/2024 11:30 AM CDTOrders Only [address] [address] Lab12/18/2024nticoagulation (warfarin) [address] [address] Nurse, g Anticoag Kwpnnaigxeemhhi49/10/2025Travelfrom Last 3 Months Immunizations ImmunizationAdministration DatesNext DueAMB INFLUENZA IIV3 (AGE 65+ YRS) PF (Flu Clinic Only)5COVID-19 vaccine (Moderna 100mcg/0.5mL) PF, V06/02/2020, 05/06/2020Influenza A (H1N1), Fnpusekstlr02/18/2010Influenza, High-dose Ddjfqkodrkj68/22/2024,12/05/2018,01/03/2018,12/14/2016,01/12/2016Influenza, High-dose Quadrivalent Byzhozpyzot87/17/2023,12/22/2021,12/25/2019Influenza, Inactivated AIIV4 (Age 65+ Years) Preserv Free02/21/2021neumococcal Conj 20- valent (Prevnar 20)04/13/2024Pneumococcal Poly,23-Valent (Pneumovax)05/23/2011 RSV, Recombinant ADJ Reconstituted (Arexvy 120MCG/0.5mL)01/25/2023Tdap07/03/2017 Zoster (Shingrix-RZV, recombinant)12/05/2018,08/22/2018 Family History Medical HistoryRelationNameCommentsCoronary artery diseaseFatherdied 59Relation NameStatusCommentsFather Social History Tobacco UseTypesPacks/DayYears UsedDateSmoking Tobacco: NeverSmokeless Tobacco: NeverAlcohol UseStandard Drinks/WeekCommentsYes4 (1 standard drink = 0.6 oz pure alcohol)4/weekPHQ-2AnswerDate RecordedPHQ-2 TOTAL ZYMCP277Social ConnectionsAnswerDate RecordedDo you often feel lonely or isolated from those around you?lcohol UseAnswerDate RecordedHow often do you have a drink containing alcohol?How many drinks containing alcohol do you have on a typical day when you are drinking?How often do you have five or more drinks on one occasion?Financial Resource StrainAnswer Date RecordedDifficulty of Paying Living Cqakmcdh727/03/2025Difficulty of Paying Living ExpensesNot on file04/13/2024Food InsecurityAnswerDate [...] InformationValueDate RecordedSex Assigned at BirthNot on fileLegal GxhGezr7203/24/2012 8:08 AM ESTIMATOR AND DRAFTER Gender IdentityNot on fileSexual OrientationNot on file Last Filed Vital Signs Vital SignReadingTime TakenCommentsBlood Sgdbrcji072/8801/20/2025 9:43 AM ESTIMATOR AND DRAFTER Qisrn058501/20/2025 9:43 AM EOABxuglhablms56.7 ??C (98.1 ??F)01/20/2025 9:43 AM CSTRespiratory Fypk314108/24/2024 8:13 AM CDTOxygen Oujtamdvtr878%01/20/2025 9:43 AM CSTInhaled Oxygen Concentration--Eewyxk22.9 kg (174 lb)01/20/2025 9:43 AM ESTIMATOR AND DRAFTER Bchemn192.3 cm (5' 9)01/20/2025 9:43 AM CSTBody Mass Index25.7103/22/2024 9:43 AM ESTIMATOR AND DRAFTER Plan of Treatment DateTypeDepartmentCare Team (Latest Contact Info)Dpsdzrjwfjd63/06/2026 10:15 AM CSTOrders Only [facility] [address] [place] [address] 04/01/2025 9:30 AM CSTOffice Visit [facility] [address] [facility] [address] [place] [address] Maciej Neri MD [address] [facility] [address] [place] [address] Health MaintenanceDue DateLast DoneCommentsDepression screening for age 12+ , 03/21/2023, 03/21/2023, Additional history existsMedicare Wellness for age 65+, 03/20/2023, 06/28/2021, Additional history existsCOVID-19 vaccine series (8 - Moderna risk 2024- season) , 01/31/2024, 01/25/2023, Additional history existsBMI (ht and wt on same day) for age 18+, 04/13/2024, 03/20/2023, Additional history existsTetanus mamadhk26Zoster (shingles) series for age 50+Amyxjdsme99/27/2019, 08/22/2018RSV vaccine for adults or aujdxbfixTihunghvf34/17/2023Hepatitis C screening for age 18-79Completed 04/13/2024Pneumococcal series for age 50+Ittatotku91/03/2025, 05/23/2011 Influenza UgbwyfyMgjjfnlim24/24/2025, 01/31/2024, 02/21/2021, Additional history existsHepatitis B series for 19+Aged OutNo longer eligible based on patient's age to complete this topic Procedures Procedure NamePriorityDate/TimeAssociated DiagnosisCommentsCREATININE,ISTAT Tpiclnw2701/20/2025 10:53 AM ESTIMATOR AND DRAFTER Observation or evaluation for suspected condition CT ABDOMEN PELVIS WSTAT103/22/2024 10:50 AM ESTIMATOR AND DRAFTER Prostate cancer (HC) Painless hematuria INR,UFNVUitixpm82/12/2025 10:08 AM ESTIMATOR AND DRAFTER Chronic atrial fibrillation (HC) Anticoagulation monitoring, INR range 2-3 URINALYSIS RJWSDEBUJZTYidesec16/12/2025 10:06 AM ESTIMATOR AND DRAFTER Painless hematuria URINE XUCMJUFVtiuxqt78/12/2025 10:06 AM ESTIMATOR AND DRAFTER Painless hematuria INR,SBJZJckagfm17/10/2025 11:14 AM CDT Chronic atrial fibrillation (HC) Anticoagulation monitoring, INR range 2-3 ANTI ZUTSconfww63/03/2025 3:08 PM ESTIMATOR AND DRAFTER Encounter for hepatitis C screening test for low risk patient from Last 3 Months or Most Recently Relevant to Health Maintenance Results * POCT Creatinine (01/20/2025 10:53 AM ESTIMATOR AND DRAFTER)ComponentValueRef RangeTest Method Analysis TimePerformed AtPathologist SignaturePOCT,CREATININE, ISTAT1.20.6 - 1.3 mg/dL01/20/2025 11:04 AM [facility] Specimen (Source)Anatomical Location / LateralityCollection Method / Volume Collection TimeReceived TimeBloodBLOOD SPECIMEN / UnknownQuest Collect / Cwpoelk3401/20/2025 10:53 AM CST01/20/2025 10:53 AM ESTIMATOR AND DRAFTER Narrative Authorizing ProviderResult TypeResult StatusShannon Pepe PACHEMISTRYFinal ResultPerforming OrganizationAddressCity/State/ZIP CodePhone Number [facility] [address] [place] [address], [facility] [address] [place] [address], [place] * CT ABDOMEN PELVIS W (01/20/2025 10:50 AM ESTIMATOR AND DRAFTER)Anatomical RegionLaterality ModalityAbdomen, Pelvis, AORTA, LIVER, SPLEENComputed TomographySpecimen (Source)Anatomical Location / LateralityCollection Method / VolumeCollection TimeReceived Time01/20/2025 11:24 AM ESTIMATOR AND DRAFTER Impressions 01/20/2025 11:24 AM ESTIMATOR AND DRAFTER 1. Significantly enlarged heart. This is multichamber [...] AM (Electronically Signed) Narrative 01/20/2025 11:24 AM ESTIMATOR AND DRAFTER For Patients: As a result of the [...] PACTFinal Result * (ABNORMAL) INR - POCT [14367.2] - Standing Order (01/20/2025 10:08 AM ESTIMATOR AND DRAFTER) Only the most recent of2 resultswithin the time period is included. ComponentValueRef RangeTest MethodAnalysis TimePerformed AtPathologist Signature INR2.3(H)ratio01/20/2025 10:18 AM [facility]: INRs >2.9 may be falsely elevated [...] PROTHROMBIN TIMEP27.9(H)10.5 - 13.1 sec01/20/2025 10:18 AM [facility] CL[facility]ICComment: Point of care fingerstick Prothrombin Time/INR results may vary from venous Prothrombin Time/INR methodologies. Any results exhibiting inconsistency with the patient's clinical status should be repeated using a venous Prothrombin Time/INR method. Specimen (Source)Anatomical Location / LateralityCollection Method / Volume Collection TimeReceived TimeBloodBLOOD SPECIMEN / UnknownQuest Collect / Unknown 01/20/2025 10:08 AM CST01/20/2025 10:08 AM ESTIMATOR AND DRAFTER Narrative Authorizing ProviderResult TypeResult StatusLofab Treadwell MDLABORATORY Final ResultPerforming OrganizationAddressCity/State/ZIP CodePhone Number eEvent [facility] [address] [place] [address], [facility] [address] [place] [address] * (ABNORMAL) URINALYSIS MICROSCOPIC (01/20/2025 10:06 AM ESTIMATOR AND DRAFTER)ComponentValueRef RangeTest MethodAnalysis TimePerformed AtPathologist SignatureWBC UA0-5< OR [...] Unknown 01/20/2025 10:06 AM CST01/20/2025 11:02 AM ESTIMATOR AND DRAFTER Narrative Authorizing ProviderResult TypeResult StatusShannon DE LEONURINEFinal Result Performing OrganizationAddressCity/State/ZIP CodePhone Number eEvent [facility] [address] [address], * URINE CULTURE (01/20/2025 10:06 AM ESTIMATOR AND DRAFTER)ComponentValueRef RangeTest Method Analysis TimePerformed AtPathologist SignatureCULTURE, URINE, ROUTINESEE NOTE 01/21/2025 10:01 PM CSTQUEST DIAGNOSTICSComment: ??CULTURE, URINE, ROUTINE ?Micro Number: ?[id number] ??Test Status: ? Final ??Specimen Source: ?? Urine, clean catch ??Specimen Quality: ??Adequate ??Result: ?No Growth Specimen (Source)Anatomical Location / LateralityCollection Method / Volume Collection TimeReceived TimeUrineURINE SPECIMEN / UnknownNon-Blood / Unknown 01/20/2025 10:06 AM CST01/20/2025 10:46 AM ESTIMATOR AND DRAFTER Narrative Authorizing ProviderResult TypeResult StatusBrlisa MENDOZAIOLOGYFinal ResultPerforming OrganizationAddressCity/State/ZIP CodePhone Number eEvent [address] [address], * ANTI HCV (04/13/2024 3:08 PM ESTIMATOR AND DRAFTER)ComponentValueRef RangeTest MethodAnalysis TimePerformed AtPathologist SignatureHEPATITIS C ANTIBODYNON-REACTIVE NON-REACTIVEQuest [facility]erville HospitaleComment: HCV antibody was non-reactive. There is no laboratory evidence of HCV infection. In most cases, no further action is required. However, if recent HCV exposure is suspected, a test for HCV RNA (test code 21023) is suggested. For additional information please refer to http://education.Ink361.GoSpotCheck/faq/SVC76v8 (This link is being provided for informational/ educational purposes only.) Specimen (Source)Anatomical Location / LateralityCollection Method / Volume Collection TimeReceived TimeBloodBLOOD SPECIMEN / Zmgcqfo5704/13/2024 3:08 PM ESTIMATOR AND DRAFTER 04/13/2024 3:09 PM ESTIMATOR AND DRAFTER Narrative Authorizing ProviderResult TypeResult StatusLofab Treadwell MDSEND OUTS Final ResultPerforming OrganizationAddressCity/State/ZIP CodePhone Number eEvent [facility] [address] [place] [address], [facility] [address] [place] [address] from Last 3 Months or Most Recently Relevant to Health Maintenance Insurance * Guarantor: Carroll Farley TypeRelation to PatientDate of BirthPhone Billing AddressPersonal/JkgqvjVaxo1945 [address] [place] [address] Advance Directives TypeDate RecordedPatient RepresentativeExplanationHealthcare Directive09/07/2015 6:47 AM * Full Code (Latest Code Status on File) Date ActivatedDate InactivatedComments06/13/2022 11:39 AM06/13/2022 3:31 PMQuestion AnswerCommentsCode Status Discussion:* Reviewed Preferences * Full Code Date ActivatedDate InactivatedComments08/08/2017 9:17 AM08/09/2017 3:02 PM * Full Code Date ActivatedDate InactivatedComments09/07/2015 7:09 AM09/07/2015 3:10 PM Care Teams Team MemberRelationshipSpecialtyStart [place] [address] [place] [address] PCP - GeneralFamily Practice06/30/19
--- OUTSIDE RECORDS SUMMARY | 2025-02-24 22:41 | XMS_ITS | Continuity of Care Document ---
Author Organization [facility] gy, [facility] Address [address] [address] Care Team Providers Care Clinical Athletic Instructor Name Role Phone NIDHI SHAU Primary Care Provider Assessment Encounter Date Assessment Date Assessment LastModified [...] last office visit note, PSA, radiation oncology puoerdtmhxjqn83Pja oyqvllyle44/17/2025 15:26:30 Plan of Treatment Reminders Order DateSubmit DateProviderLast Modified ByOrganization DetailsLast Modified TimeDetailsAppointmentsNEW PATIENT 15104/27/2024 01:45PMQUENTIN CABRAL MDNot availableNot availableNot availableLabNone recorded.Referralundersea & hyperbaric medicine referral - Please call the pt to setup a consult. 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 Patient TargetsNo targets recorded. Patient Instructions Encounter Date Encounter Id Patient Instructions Last Modified By Organization Details Last Modified Time 02/24/2025 [id number] 79-year-old male presents for evaluation of gross [...] to emergency department if clot retention recurs. kftftexc44Dey pjcuvjzql60/17/2025 15:27:22 Reason for Referral [facility]ic Medici ne Referral for Radiation cystitis Please call the pt to setup a consult. 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 Referring Physician: Quentin Cabral, Urology, Encounter Date: 02/24/2025 Results Created Date Observation Date Name Description Value Unit Range Abnormal Flag Note LastModifiedBy Organization Detail LastModifiedTime 02/22/2025 01/20/2025 CT, abdomen + pelvis, w/ con trast No observation recorded.ajjdv7Fsj Phwywcvtq46/15/2025 15:53:43 Result Notes None recorded. Problems Name Problem SNOMED Code Status Onset Date Resolution Date Notes Provider Name and Address Organization Details Recorded Time Neurogenic urinary bladder 218122586 Active 5 N31.2 : Neurogenic bladderNot NkjmmozkxAgocqpVadzsd07/10/2020 23:41:45Abnormal findings on microbiological examination of vejjb953836422Gbxobe82/28/7920Y11.7 : Abnormal findings on microbiological examination of urineNot Available RqtyxfDtgsnn11/10/2020 23:41:45Prostate specific antigen above reference range 457393771Sndtck89/28/4444F10.2 : Raised prostate specific antigenNot Available CosqhmIzifoe56/10/2020 23:41:45Frank xyzvjtiew349866199Bjwsmp16/24/9595I95.0 : Antonio hematuriaQUENTIN CABRAL MD [address] [facility],[address] [place] [address], [phone] Mznouut47/17/2025 15:21:00Clinical ywjcopaOeatuh46/01/0441B12.0 : Calculus in diverticulum of bladderNot LydlfczzcMmkrhbTuyanc63/10/2020 23:41:45 Sensation as if urinary bladder still qpzh522563588Pmprgo40/04/6288P16.14 : Sensation as if bladder still fullNot LdfokshbnVpcbiaJcvnfm36/10/2020 23:41:46 Clinical hrsgullPfgdzb77/21/1037R49.1 : Desire for urinationNot Available WdtouxKtepwg04/10/2020 23:41:46Clinical aqlpwwmDnhrum90/21/5600Z79.9 : Retention of urineNot MrolnxyjaUfcywrDnsuog47/10/2020 23:41:46Malignant neoplasm of adcbwsyt813155626Tvsred20/27/7802H98 : Malignant tumor of prostateNot Available RkekhfDljdmu97/10/2020 23:41:45Genuine stress pewdvonrtnxk73803227Dcofpk 10/10/2017N39.3 : Genuine stress incontinenceNot TwosqkuqhYjzunhOnymqh68/10/2020 23:41:45Erectile dysfunction following radical oxcbumagohjcd376731991831903 Fmlyjx4610/10/2017N52.31 : Erectile dysfunction following radical prostatectomyNot AbeybrhdjVionlhRtzvln87/10/2020 23:41:45History of malignant neoplasm of eqrgxxvq694905418Quhvag69/19/5203Z90.46 : History of malignant neoplasm of prostateNot RduejdiyxAjrvquSjsgaf58/10/2020 23:41:45Radiation nluzhuie07228932 Hztiel9902/24/2025QUENTIN CABRAL MD [address] [facility],[address], [place], [address], [facility] Cykiauy39/17/2025 15:20:06 Problem Notes None recorded. Procedures Surgical History Date Name Laterality Status Provider Name and Address Organization Details Recorded Time 02/24/2025 COMPLEX VISIT completedQUENTIN CARBAL MD [address] [place] [address],[facility] [address], [address], [facility] Iqhmirt00/17/2025 15:25:16125CystoscopyMalecompleted QUENTIN CABRAL MD [address] [place] [address],[facility] [address], [place], [address], [place] [address]/27/2024 15:26:05043Diagnostic sigmoidoscopy completedNot Available[facility] Note02/20/2025 20:55:39031Diagnostic colonoscopycompletedNot [facility] Note02/20/2025 20:55:39031Past Data ReviewedcompletedToolya Cabral MD [address] [place] [address] [address], [place], [address], [facility] Gkfhpnf1805/17/2020 13:44:51031Blood Draw/PRODUCT SUPPORT MANAGER/PSA RESULTS completedStacy GodwinChildren[facility] Zwoddlv6205/10/2020 10:50:4512 Blood Draw/PRODUCT SUPPORT MANAGER/PSA RESULTScompletedNaiad [facility] Shwojih20/04/2020 11:52:5308Blood Draw/PRODUCT SUPPORT MANAGER/PSA RESULTScompletedEmily TrangL[facility] Hospital [facility] Bwkkbri3011/03/2019 11:40:24008/18/2017Laps surg amrw7dwp rpbic radcompletedNot UwblwclwnLsrgunLnizcc36/11/2020 12:09:40006/14/2017Biopsy of prostatecompletedNot WstyqzsgdXlvauhEymniv85/11/2020 12:09:40006/14/2017Njx aa&/strd other pn/branch completedNot FsapjktltAaierbSawinb62/11/2020 12:09:40006/09/2017Colonoscopy and biopsycompletedNot LkupfqchhBffounZrnmdr04/11/2020 12:09:40005/29/2017Us urine capacity measurecompletedNot JfdzpgiaiYjzqxeHvzugp57/11/2020 12:09:40005/01/2017 Us urine capacity measurecompletedNot HzccprrqlElcripSpgtfk18/11/2020 12:09:40 04/02/2017Us urine capacity measurecompletedNot VcykoiyifSngnjiJgjrmo35/11/2020 12:09:39009/25/2016Us urine capacity measurecompletedNot [facility] 08/20/2019 12:09:39[address]/25/2015Us urine capacity measurecompletedNot Available MuyvbsEfxysk67/11/2020 12:09:40104/25/2015Insert bladder cathetercompletedNot ZrplxkwvyRnkwwnMfpnrm62/11/2020 12:09:CystourethroscopycompletedNot OcvkdftjgVoxrrjPmtggf97/11/2020 12:09:39010/13/2015Electro-uroflowmetry first completedNot YojxfwipfMkydthZgjodu38/11/2020 12:09:39010/13/2015Intraabdominal pressure testcompletedNot CmmzwalbuVipcyvQezpvd11/11/2020 12:09:40010/13/2015 Cystometrogram w/vp software&upcompletedNot CvgtypkqiXzuzwkEflssc32/11/2020 12:09:40 10/13/2015Anal/urinary muscle studycompletedNot TbiwryybuXgomrjXcwhgy14/11/2020 12:09:CystourethroscopycompletedNot CfmzvysljJfjjzqKjhxow54/11/2020 12:09:39008/24/2013Us urine capacity measurecompletedNot [facility] 08/20/2019 12:09:39104/23/2012Us urine capacity measurecompletedNot 08/20/2019 12:09:40008/18/2012Us urine capacity measurecompletedNot BkvckdzofMkqqkqNapxbg33/11/2020 12:09:40006/09/2012Us urine capacity measure completedNot GwzrvoeeyPbvwoeNchycp09/11/2020 12:09:Prostatic rf thermotxcompletedNot PggruramrBjuudmVbwfit53/11/2020 12:09:Insert bladder cathetercompletedNot OerawhwjeBgkpoiRpjovh77/11/2020 12:09: Us urine capacity measurecompletedNot PzxeycgyaXekuvgCjttlx53/11/2020 12:09:40 12/11/2011Us urine capacity measurecompletedNot KziqxmfurPgrybhGpulxm29/11/2020 12:09:Us urine capacity measurecompletedNot AvailableSentara [facility] 08/20/2019 12:09:Us urine capacity measurecompletedNot Available PanfseScrskb43/11/2020 12:09:CystourethroscopycompletedNot Available YpoafbMygefx99/11/2020 12:09:Us urine capacity measurecompletedNot QvqqigsxlBalwgrGyvlug28/11/2020 12:09:40Removal of prostatecompletedNot [facility] Note02/20/2025 20:55:39Removal of sperm duct(s)completedNot [facility] Note02/20/2025 20:55:39 Imaging Results None recorded. Procedure Notes None recorded. Medical Equipment None Reported. Allergies Allergen ID Allergen Name Allergen Category Reaction Reaction Severity Criticality Documentation Date Start Date Code Code System Note Provider Name and Address Organization Details Recorded Time 019774 cow milk allergenic extract food,medicati on Not available Not available Not lrptiejko25/11/4008875891McBjntPrp DlxpmetlwRdrpghTgimys54/11/2020 00:03:58 Medications Name Sig Start Date Stop [...] 1 mg tabletPLEASE SEE ATTACHED FOR DETAILED RVNRZOGPVM76/17/9324nmblfzfos1665-86-27 HN: Patient reports no longer takingNot AvailableNot AvailableNot Available ipratropium bromide 42 mcg (0.06 %) nasal sprayINHALE 2 SPRAYS IN BOTH NOSTRILS THREE TIMES DAILY.activeNot AvailableNot AvailableNot Availablelatanoprost2.5ml of 0.005% 1/dayactiveNot AvailableNot AvailableNot Availablemultivitamin MULTIVITAMIN 1/dayactiveNot AvailableNot AvailableNot AvailableShingrix (PF) 50 mcg/0.5 mL intramuscular suspension, kit05/17/2020ompletedNot AvailableNot AvailableNot AvailableFluzone High-Dose 2019-20 (PF) 180 mcg/0.5 mL intramuscular adcbasp0305/17/2020ompletedNot AvailableNot AvailableNot Available Fluzone High-Dose Quad 2019- (PF) 240 mcg/0.7 mL IM syringePHARMACY HIELZQSWFGTW75/09/2021ompletedNot AvailableNot AvailableNot Available Vitals Date Recorded Body weight Body mass index (BMI) Body height Provider Name and Address Organization Details Last Updated DateTime 02/24/2025 69510.55259 09545 g 24.4 kg/m2 177.8 cm Not Available Health Note 02/24/2025 12:18:45 Social History Question Answer Notes LastModified by Organization D etails LastModified Time Tobacco Smoking Status Never Smoker Not AvailableHealth Note02/20/2025 20:55:39Do You Have An Advance Directive?Yes API-[email or web address] not ukpqssrde01/13/2025What Is Your Level Of Caffeine Consumption?NoneAPI-685Information not hodsqdwyk84/13/2025How Much Tobacco Do You Chew?NoneAPI-685Information not yfxkkmisg77/13/2025Have You Or Anyone In Your House Tested Positive For COVID-19 In The Past 14 Days?Eesdygmaekd18 Information not xqdaanlcs87/09/2021Have You Or Anyone In Your House Been Exposed To COVID-19 In The Past 14 Days?Yzzifmamkoq95Xbbelmurbmr not fodaopafq14/09/2021 Have You Or Anyone In Your Home Experienced Symptoms Of COVID 19 Such As Fever >100.4, ShortnessOf Breath, Difficulty Breathing, Or A Cough?Drfowkcezkm95 Information not aqynvwfus39/09/2021Have You Traveled Outside Of [place] In The Past 30 Days?Mbcwdngofvz13Jmdnmuojrsg not sulratora50/09/2021aceWhite sbhusal1.63Information not jceslzmdk01/11/2020EthnicityNot / dhfwmvioq52Amczlozdezr not zqudngzbx12/09/2021referred LanguageEnglish vubeuzsfg30Uzogihttbkq not qzbjohmlq12/09/2021Marital StatusMarriedsbhusal1.63 Information not xoncdaicr73/11/2020Do You Have A Medical Power Of Transfer Station Operator?Yes [email or web address]-685Information not jictlooqc75/13/2025What Was The Date Of Your Most Recent Tobacco Screening?02/24/2025PI-685Information not ctykepidy90/13/2025What Is Your Relationship Status?MarriedAPI-685Information not rhtuxlxnz29/13/2025re You Sexually Active?YesAPI-685Information not exouhjtfk61/13/2025How Many Days In The Past Year Have You Consumed 5 Or More Drinks?0API-685Information not powyxrxxd98/13/2025 Sex: Unknown Functional Status Question Answer Note LastModified by Organization D etails LastModified Time Do you use any illicit or recreational drugs? No API-685Information not nrmkbdwyf54/13/2025What is your level of alcohol consumption?OccasionalAPI-685Information not havxhfrnu35/13/2025Do you or have you ever used smokeless tobacco?Never used smokeless tobaccoAPI-685Information not kbtkgilfo72/13/2025Do you or have you ever used e-cigarettes or vape?Never used electronic cigarettesAPI-685Information not aljpsmvry19/13/2025 Mental Status None recorded. Family History Relationship Description Onset Age of this Age Resolved Age Notes LastModified by Organization Details LastModified Time Unspecified Relation Family history of diabetes mellitus API-685Not wzrboeeqh96/13/2025 20:55:38 Notes:Thyroid problems:Mothe r Medical History Condition Response Other N High Blood Pressure N Kidney Stones Y Depression N Sexually Transmitted Infection N Cancer N Bleeding Disorder N Lung Disease N GERD/Acid Reflux N High Cholesterol Y Diabetes N Heart Disease Y Immunizations Vaccine Type Date Status Note Provider Nam e and Address Organization Details Recorded Time pneumococcal, unspecified formulation 03/11/2019 com pleted Not AvailableHealth Note02/20/2025 20:55:41influenza, unspecified formulation 12/23/2024ompletedNot AvailableHealth Note02/20/2025 20:55:10YDMF-BUS-6 (COVID- 19) vaccine, XWDGMZJBFKW54/15/2025ompletedNot AvailableHealth Note02/20/2025 20:55:41zoster live03/11/2019[facility]Not [facility]/20/2025 20:55:41Novel Exjmkzyka-G4T9-37, all rpbhyoxnndkt45/18/2010completedNot VxakdmtfzFwvdndApslje10/17/2025 12:19:22Influenza, high-dose, trivalent, PF 01/12/2016completedNot FiauyvxbhBvukzmGqbgqw03/17/2025 12:19:22Influenza, high- dose, trivalent, PF12/14/2016completedNot HxhokgicdCxyqgeMeivuk37/17/2025 12:19:57Erld9307/03/2017completedNot SghmaeufwOywaihHbgwlu56/17/2025 12:19:22 Influenza, high-dose, trivalent, PF01/03/2018completedNot Available[facility] 02/24/2025 12:19:22zoster rzlrauswvge75/14/2019completedNot Available QrvagfNsfnoq56/17/2025 12:19:22zoster jkxjjknuuxi86/27/2019completedNot IyrnwdplgYslmhgYdrxaa16/17/2025 12:19:22Influenza, high-dose, trivalent, PF 12/05/2018completedNot FbirtidzuYvmvqgBhkito87/17/2025 12:19:22Influenza, high- dose, quadrivalent, PF12/25/2019completedNot YtfylrkkySmnoevCfhdpk42/17/2025 12:19:22COVID-19, mRNA, LNP-S, PF, 100 mcg/0.5mL dose or 50 mcg/0.25mL dose 05/06/2020ompletedNot WrkgfxhxpEygalgBsirux06/17/2025 12:19:22COVID-19, mRNA, LNP-S, PF, 100 mcg/0.5mL dose or 50 mcg/0.25mL dose06/02/2020ompletedNot WeazkkblxEkkulvVwbckz37/17/2025 12:19:22COVID-19, mRNA, LNP-S, PF, 100 mcg/0.5mL dose or 50 mcg/0.25mL dose01/17/2021ompletedNot CpqsqdqltPdvewwBbuvkp02/17/2025 12:19:22Influenza, adjuvanted, quadrivalent, PF02/21/2021ompletedNot Available BdzebhLhigtq43/17/2025 12:19:22COVID-19, mRNA, LNP-S, bivalent, PF, 30 mcg/0.3 mL dose12/22/2021ompletedNot PdzkctiymPeaffhAqeizp71/17/2025 12:19:22Influenza, high-dose, quadrivalent, PF12/22/2021ompletedNot AvailableAthCritical access hospital 02/24/2025 12:19:22COVID-19, mRNA, LNP-S, PF, 50 mcg/0.5 mL01/25/2023ompleted Not LdmjvexwwYmbdtzUuojlh52/17/2025 12:19:22Influenza, high-dose, quadrivalent, PF01/25/2023ompletedNot GouuwuihkRecpwjEsyfqx83/17/2025 12:19:22RSV, recombinant, protein subunit RSVpreF, adjuvant reconstituted, 0.5 mL, PF 01/25/2023ompletedNot KmuicgjbpUecouqYcpayd83/17/2025 12:19:22Influenza, high- dose, trivalent, PF01/31/2024ompletedNot ItkbbxrmtGphnkrJmtuas89/17/2025 12:19:22COVID-19, mRNA, LNP-S, PF, gabi-sucrose, 30 mcg/0.3 mL01/31/2024 completedNot TmygsvzerCpldtiIslhpw37/17/2025 12:19:22Pneumococcal conjugate PCV20, polysaccharide FLA076 conjugate, adjuvant, PF04/13/2024ompletedNot LhgvastmpGxreceXvnlzm66/17/2025 12:19:22pneumococcal polysaccharide PPV23 05/23/2011completedAilyn king [facility] Izyrudy9212/08/2020 10:22:06 Past Encounters Encounter ID Performer Location Encounter Start Date Encounter Closed Date Diagnosis/Indication Diagnosis SNOMED-CT Code Diagnosis ICD10 Code Diagnosis IMO Codes Diagnosis Note [id number] QUENTIN CABRAL MD [facility] [address] [place] [address],[address] [place] [address] 02/24/2025 12:16:56 02/24/2025 15:27:35 Malignant neoplasm of prostate 838489081 C61 Radiation uekixsqu76469767A06.40 [id number] Antonio mbzegagmt918447870H48.0 [id number] Health Concerns Section Related Observation LastModified by Organization Detai ls LastModified Time None Recorded Concern Status LastModified by Organization Details LastModified Time None Recorded Payers Encounter Date Sequence Insurance Name Policy Number Policy Matthews Covered Member ID Matthews Member ID Guarantor Name 02/24/2025 1 [employer] - DOS ON O R AFTER 19 (MEDICARE REPLACEMENT/ADVANTAGE - PPO) [id number] Carroll Farley [id number] Carroll Farley Notes Date Note Type Note Provider Name and Address Orga nization Details Recorded Time 02/24/2025 text/html Chief complaint:Blood in pzkoq16-vriz-mrd male presents for evaluation of gross hematuria. [...] Hematuria:Began:4 Weeks agoAssociated symptoms:Trouble starting to urinate QUENTIN CABRAL MD [address] [facility],[address], [place], [address], [facility] Kffcupo21/17/2025 15:27:32
--- NOTE | 2025-02-24 22:46 | ED.GENADULT ---
HPI - General Adult General Chief complaint: Urogenital Problems, Male Stated complaint: blood in urine/needs bladder flushed Time Seen by Provider: 02/24/25 22:42 History of Present Illness HPI narrative: This 79-year-old male comes in with hematuria and urine retention. He was at a urology clinic today and had some irrigation through a catheter that was then removed. The patient is on Coumadin for atrial fibrillation and has continued to have some bleeding in his urine. He had this catheter in for the past couple weeks because of urinary retention due to hematuria. He does not report any lightheadedness or shortness of breath. He did have his prostate removed about 5 years ago and had radiation treatment also at that time. Related Data Home Medications ?Medication ?Instructions ?Recorded ?Confirmed atorvastatin .Route 08/21/23 02/02/25 warfarin .Route 08/21/23 02/02/25 Allergies Allergy/AdvReac Type Severity Reaction Status Date / Time No Known Drug Allergies Allergy Verified 02/24/25 22:57 Review of Systems Status of ROS: Reports: 10 or more systems reviewed and unremarkable except as noted in History and below Narrative: Constitutional: No fevers, no weight gain or loss. Eyes: No discharge. No vision changes. HENT: No congestion, no sore throat, no ear pain. Cardiovascular: No chest pain, no palpitations. Respiratory: No shortness of breath, no wheezes, no cough. Gastrointestinal: No abdominal pain, no vomiting, no diarrhea. Genitourinary: Gross hematuria and urinary retention. Musculoskeletal: Normal range of motion. Skin: No rashes, no pruritis. Neurological: No dizziness, weakness, sensory change, speech change. Endo/Heme/Allergies: No bruising or bleeding. No polydipsia. Pysch: no suicidality, no anxiety, no insomnia. All other systems reviewed and are negative. 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) Mixed hyperlipidemia ?E78.2 - Mixed hyperlipidemia (ICD-10) BCC (basal cell carcinoma), ear ?C44.211 - Basal cell carcinoma of skin of unspecified ear and external auricular canal (ICD-10) Anticoagulation monitoring, INR range 2-3 ?Z79.01 - terminal gauger supervisor (current) use of anticoagulants (ICD-10) Chronic atrial fibrillation ?I48.20 - Chronic atrial fibrillation, unspecified (ICD-10) Surgical History History of prostatectomy (08/08/17) ?Z90.79 - Acquired absence of other genital organ(s) (ICD-10) History of cystoscopy (09/07/15) ?Z98.890 - Other specified postprocedural states (ICD-10) Family History Father Coronary artery disease Social History Smoking Status: Never smoker Do you use any of these nicotine containing products: None Second hand tobacco smoke exposure: No Non-prescribed substance use: denies use Exam Narrative: Exam Narrative: Constitutional: Well-developed, well-nourished, no acute distress. HEENT: Normocephalic, atraumatic. Neck: Normal range of motion. Nontender. Supple. Heart: Regular. No murmurs. Normal rate. Intact distal pulses. Lungs: Clear to auscultation. No chest discomfort. No wheezes, rhonchi, or rales. Abdomen: Normal bowel sounds. Nontender. No rebound tenderness. Back: No midline tenderness. Normal range of motion. Extremities: Normal range of motion. No injury. Skin: Intact. No rash. Warm. No erythema or pallor. Neurologic: No altered sensation. No weakness. Alert and oriented. Psychiatric: No suicidality. No anxiety or depression. No insomnia. Nursing notes and vitals signs are reviewed. Const: Vital Signs, click to edit/add: Vital Signs - 24 hr 02/24/25 22:53 Temperature 98.4 F Pulse Rate [Right Pulse Oximeter] 87 Respiratory Rate 16 Blood Pressure [Ri ght Upper Arm] 144/122 H Pulse Oximetry 98 Oxygen Delivery Me thod Room Air Course Vital Signs Vital signs: Initial Vital Signs Temperature 98.4 F 02/24/25 22:53 Temperature Source Temporal Artery Scan 02/24/25 22:53 Pulse Rate 87 02/24/25 22:53 Pulse Rhythm Irregular 02/24/25 22:53 Pulse Strength 3+ Normal 02/24/25 22:53 Respiratory Rate 16 02/24/25 22:53 Blood Pressure 144/122 H 02/24/25 22:53 Blood Pressure Mean 129 H 02/24/25 22:53 Blood Pressure Position Sitting 02/24/25 22:53 Pulse Oximetry 98 02/24/25 22:53 Oxygen Delivery Method Room Air 02/24/25 22:53 Vital Signs Temperature 98.4 F 02/24/25 22:53 Pulse Rate 87 02/24/25 22:53 Respiratory Rate 16 02/24/25 22:53 Blood Pressure 144/122 H 02/24/25 22:53 Pulse Oximetry 98 02/24/25 22:53 Oxygen Delivery Method Room Air 02/24/25 22:53 Temperature 98.4 F 02/24/25 22:53 Pulse Rate 87 02/24/25 22:53 Respiratory Rate 16 02/24/25 22:53 Blood Pressure 144/122 H 02/24/25 22:53 Pulse Oximetry 98 02/24/25 22:53 Oxygen Delivery Method Room Air 02/24/25 22:53 Medical Decision Making MDM Narrative Medical decision making narrative: This patient comes in with hematuria and urinary retention. He just had his catheter removed today at a urology clinic appointment. He is on Coumadin. He states that he is feeling okay but notes that he is not passing any urine. A triple-lumen catheter was placed for bladder irrigation. The 1st couple 100 mL appeared to be mostly like clot. His urine eventually turned clear with continuous irrigation. A Awad catheter was placed and he is okay to go home and hopefully can return to clinic in a couple days to have it removed. The patient does know how to irrigate his catheter at home if needed. He understands that he can return here also as needed. Discharge Plan Discharge Clinical Impression: Acute urinary retention Patient Disposition: Home, Self-Care Condition: Improved Additional Instructions: Keep catheter in place for 2-3 days. Return to clinic or to the emergency room to have it removed. Okay to irrigate year bladder at home if needed or return here if further complications occur. Prescriptions: No Action warfarin .Route atorvastatin [Lipitor] .Route Follow Up/Referrals: Hector Treadwell MD [Primary Care Provider, Family Practice] Stand Alone Forms: [employer] - [email or web address] Info Instructions
[2025-02-24 22:53] VITALS: BP 144/122; PULSE 87; RESP 16; TEMP 36.9; O2SAT 98; BMI 24.4
--- OUTSIDE RECORDS SUMMARY | 2025-02-24 23:49 | XMS_ITS | CCD ---
Author Name Interface, [email or web address] lity Address [address] [place] [address] [facility] Address [address] [place] [address] Reason for Visit Social History Date Name Value 11/07/2024 Sex Unknown
--- OUTSIDE RECORDS SUMMARY | 2025-02-24 23:50 | XMS_ITS | CCD ---
Author Name Interface, [id number] lity Address [address] [place] [id number] [facility] Address [address] [place] [id number] Reason for Visit Social History Date Name Value 11/07/2024 Sex Unknown
[2025-02-25 01:10] VITALS: BP 136/102; PULSE 75; RESP 18; O2SAT 98
== END 2025-02-25 01:20 | disposition home or self-care (01) ==
PROVIDERS: Emergency Provider Emergency Medicine Emergency Medical Services; PCP Family Medicine
DX: R31.9 Hematuria, unspecified (principal); R33.9 Retention of urine, unspecified; Z85.46 Personal history of malignant neoplasm of prostate; Z92.3 Personal history of irradiation; Z79.01 Long term (current) use of anticoagulants
CPT/HCPCS: 51702; 81001; 99283; 99284

== ENCOUNTER 2025-02-25 12:55 | Emergency (ER) | payer MEDICARE, SELFPAY ==
[2025-02-25 12:59] VITALS: BP 117/78; PULSE 95; RESP 16; TEMP 36.7; O2SAT 99; BMI 24.4
--- OUTSIDE RECORDS SUMMARY | 2025-02-25 13:02 | XMS_ITS | Continuity of Care Document ---
Author Organization [facility], [facility] Address [address] [address] Care Team Providers Care Pals Nurse Name Role Phone NIDHI SAHU Primary Care Provider Assessment Encounter Date Assessment [...] last office visit note, PSA, radiation oncology fzzeddvqsodlm26Zvs qhgfkpzxa89/17/2025 15:26:30 Plan of Treatment Reminders Order DateSubmit DateProviderLast Modified ByOrganization DetailsLast Modified TimeDetailsAppointmentsNEW PATIENT 15104/27/2024 01:45PMQUENTIN CABRAL MDNot availableNot availableNot availableLabNone recorded.Referralundersea & hyperbaric medicine referral - Please call the pt to setup a consult. 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 Patient TargetsNo targets recorded. Patient Instructions Encounter Date Encounter Id Patient Instructions Last Modified By Organization Details Last Modified Time 02/24/2025 [id number] 79-year-old male presents for evaluation of gross [...] to emergency department if clot retention recurs. ubakqppj62Ctm tqtsdebip89/17/2025 15:27:22 Reason for Referral Undersea & Hyperbaric [...] + pelvis, w/ con trast No observation recorded.bltee9Cpj Ccngzevxl35/15/2025 15:53:43 Result Notes None recorded. Problems Name Problem SNOMED Code Status Onset Date Resolution Date Notes Provider Name and Address Organization Details Recorded Time Neurogenic urinary bladder 173008959 Active 5 N31.2 : Neurogenic bladderNot JefzunknjLvtfkiGqjpvg48/10/2020 23:41:45Abnormal findings on microbiological examination of dguth625749850Wknuqh46/28/7176W51.7 : Abnormal findings on microbiological examination of urineNot Available RotsicRroijv65/10/2020 23:41:45Prostate specific antigen above reference range [id number]/28/4876L12.2 : Raised prostate specific antigenNot Available PvwdtxFxhtsm58/10/2020 23:41:45Frank pxuwlrizs723366689Oheboq38/24/5554L73.0 : Antonio hematuriaQUENTIN CABRAL MD [address] [facility],[address] [place] [address], [address] Pkhdojj76/17/2025 15:21:00Clinical pdqvlqyElpude97/01/0382U56.0 : Calculus in diverticulum of bladderNot ZumdchwbhLuimvbTevyue86/10/2020 23:41:45 Sensation as if urinary bladder still vjwh194309953Fnncwd90/04/5780X05.14 : Sensation as if bladder still fullNot NwprxnkxzTntiehLkoudh21/10/2020 23:41:46 Clinical ovztuncUqtbxb07/21/2167T41.1 : Desire for urinationNot Available PdalryVudrxv01/10/2020 23:41:46Clinical maaealwCqduby81/21/8344F39.9 : Retention of urineNot WwujqiayhGpswcmRcnaxq53/10/2020 23:41:46Malignant neoplasm of qcdgqvfd055568504Bzfyza39/27/0770X99 : Malignant tumor of prostateNot Available XxekotCecfjy98/10/2020 23:41:45Genuine stress rxjyryxfaxvz41044616Ludhtl 10/10/2017N39.3 : Genuine stress incontinenceNot VpyoezcptUdyxifBspgiv75/10/2020 23:41:45Erectile dysfunction following radical [id number] Xwixys7310/10/2017N52.31 : Erectile dysfunction following radical prostatectomyNot HtgifydsqPhwpuoNyhpkt02/10/2020 23:41:45History of malignant neoplasm of swyhfmvd797570598Rutjdh04/19/8858M59.46 : History of malignant neoplasm of prostateNot AfxiwbslkDdyxvnSojiyr92/10/2020 23:41:45Radiation gytkfafj70526939 Kjulok1102/24/2025QUENTIN CABRAL MD [address] [facility],[address], [place], [address], [facility] Fttqnwq73/17/2025 15:20:06 Problem Notes None recorded. Procedures Surgical History Date Name Laterality Status Provider Name and Address Organization Details Recorded Time 02/24/2025 COMPLEX VISIT completedQUENTIN CABRAL MD [address] [place] [address],[facility] [address], [address], [facility] Opbeyaq65/17/2025 15:25:16125CystoscopyMalecompleted QUENTIN CABRAL MD [address] [place] [address],[facility] [address], [address], [place] 9528004/27/2024 15:26:05043Diagnostic sigmoidoscopy completedNot [facility]02/20/2025 20:55:39031Diagnostic colonoscopycompletedNot [facility] Note02/20/2025 20:55:39031Past Data ReviewedcompletedToolya Cabral MD [address] [place] [address] [address], [place], [address], [facility] Fcfukhj2905/17/2020 13:44:51031Blood Draw/SAP DEVELOPER/PSA RESULTS completedSt[facility] Enxsreh9305/10/2020 10:50:4512 Blood Draw/SAP DEVELOPER/PSA RESULTScompletedNaiad [facility] Ybuemkw54/04/2020 11:52:5308Blood Draw/SAP DEVELOPER/PSA RESULTScompletedEmily [facility]angTr[facility] Ddgnavj3411/03/2019 11:40:24008/18/2017Laps surg roze5wrs rpbic radcompletedNot ShspxlpeaHedwbaAyhcem19/11/2020 12:09:40006/14/2017Biopsy of prostatecompletedNot AdeozhyxjUohcaoFltkbb24/11/2020 12:09:40006/14/2017Njx aa&/strd other pn/branch completedNot BvzjshlngExzujrHheboc01/11/2020 12:09:40006/09/2017Colonoscopy and biopsycompletedNot TxqpbpypeHojjtiIzzzzg57/11/2020 12:09:40005/29/2017Us urine capacity measurecompletedNot RgteyqiwxItgmfsOoeuqm47/11/2020 12:09:40005/01/2017 Us urine capacity measurecompletedNot UgahfoqykUrzikdGhiqis53/11/2020 12:09:40 04/02/2017Us urine capacity measurecompletedNot ZbtenfwdyUmdtxqXyymgk58/11/2020 12:09:39009/25/2016Us urine capacity measurecompletedNot [facility] 08/20/2019 12:09:39104/25/2015Us urine capacity measurecompletedNot Available SmyahuVvasjc68/11/2020 12:09:40104/25/2015Insert bladder cathetercompletedNot JirpztbooIjdnyzAydxvn40/11/2020 12:09:CystourethroscopycompletedNot TpsyzsktdHcdhicHcemtj79/11/2020 12:09:39010/13/2015Electro-uroflowmetry first completedNot PttyixzfyOrfxvjMszqkz23/11/2020 12:09:39010/13/2015Intraabdominal pressure testcompletedNot VgnyfljqoDajbxdOayzyy08/11/2020 12:09:40010/13/2015 Cystometrogram w/svp business development&upcompletedNot UprhksdkzCjoqzaNpthfh27/11/2020 12:09:40 10/13/2015Anal/urinary muscle studycompletedNot ZoihebopkLwvnvmMpnfsz22/11/2020 12:09:CystourethroscopycompletedNot KvyhaxqbiNtctmaLxgawa33/11/2020 12:09:39008/24/2013Us urine capacity measurecompletedNot [facility] 08/20/2019 12:09:39104/23/2012Us urine capacity measurecompletedNot 08/20/2019 12:09:40008/18/2012Us urine capacity measurecompletedNot NewsidxtcTsthzlLeputv55/11/2020 12:09:40006/09/2012Us urine capacity measure completedNot XddwntyvdZuczfdSxvqdg02/11/2020 12:09:Prostatic rf thermotxcompletedNot MjnlkirrcRqsakoPpzqay92/11/2020 12:09:Insert bladder cathetercompletedNot UltlvzebuMebbinHdudoj86/11/2020 12:09: Us urine capacity measurecompletedNot ZrnjbafhmQxeqtmNfqbhd33/11/2020 12:09:40 12/11/2011Us urine capacity measurecompletedNot DtjbciujiYoiwpcBfxepn51/11/2020 12:09:Us urine capacity measurecompletedNot AvailableC[facility] 08/20/2019 12:09:Us urine capacity measurecompletedNot Available LzuwakHxctpr78/11/2020 12:09:CystourethroscopycompletedNot Available MxmhunHimtfw23/11/2020 12:09:Us urine capacity measurecompletedNot YvtpzyocyFawiraRmyuii19/11/2020 12:09:40Removal of prostatecompletedNot [facility] Note02/20/2025 20:55:39Removal of sperm duct(s)completedNot [facility] Note02/20/2025 20:55:39 Imaging Results None recorded. Procedure Notes None recorded. Medical Equipment None Reported. Allergies Allergen ID Allergen Name Allergen Category Reaction Reaction Severity Criticality Documentation Date Start Date Code Code System Note Provider Name and Address Organization Details Recorded Time 852266 cow milk allergenic extract food,medicati on Not available Not available Not /11/[id number] EgvllgudaSefnjbWkqesm53/11/2020 00:03:58 Medications Name Sig Start Date Stop [...] 1 mg tabletPLEASE SEE ATTACHED FOR DETAILED WMCBHEEYWP16/17/4435xhjphcxxz1866-20-23 HN: Patient reports no longer takingNot AvailableNot AvailableNot Available ipratropium bromide 42 mcg (0.06 %) nasal sprayINHALE 2 SPRAYS IN BOTH NOSTRILS THREE TIMES DAILY.activeNot AvailableNot AvailableNot Availablelatanoprost2.5ml of 0.005% 1/dayactiveNot AvailableNot AvailableNot Availablemultivitamin MULTIVITAMIN 1/dayactiveNot AvailableNot AvailableNot AvailableShingrix (PF) 50 mcg/0.5 mL intramuscular suspension, kit05/17/2020ompletedNot AvailableNot AvailableNot AvailableFluzone High-Dose 2019-20 (PF) 180 mcg/0.5 mL intramuscular kavaerc7205/17/2020ompletedNot AvailableNot AvailableNot Available Fluzone High-Dose Quad 2019- (PF) 240 mcg/0.7 mL IM syringePHARMACY QQXATPIFBGPK15/09/2021ompletedNot AvailableNot AvailableNot Available Vitals Date Recorded Body weight Body mass index (BMI) Body height Provider Name and Address Organization Details Last Updated DateTime 02/24/2025 25076.84868 58399 g 24.4 kg/m2 177.8 cm Not Available Health Note 02/24/2025 12:18:45 Social History Question Answer Notes LastModified by Organization D etails LastModified Time Tobacco Smoking Status Never Smoker Not AvailableHealth Note02/20/2025 20:55:39Do You Have An Advance Directive?Yes [email or web address] not rjezuswdr86/13/2025What Is Your Level Of Caffeine Consumption?NoneAPI-685Information not isiuflrpn20/13/2025How Much Tobacco Do You Chew?NoneAPI-685Information not bbmiouibi26/13/2025Have You Or Anyone In Your House Tested Positive For COVID-19 In The Past 14 Days?Nlilbmhufbx21 Information not qobpvtlss85/09/2021Have You Or Anyone In Your House Been Exposed To COVID-19 In The Past 14 Days?Glvwxxfnjpw34Khxrnutlzay not ostiqplaz57/09/2021 Have You Or Anyone In Your Home Experienced Symptoms Of COVID 19 Such As Fever >100.4, ShortnessOf Breath, Difficulty Breathing, Or A Cough?Nhreklbtzrl12 Information not ouftgcrka22/09/2021Have You Traveled Outside Of [place] In The Past 30 Days?Uwkcxgiqrxv45Zqtfvqdmugs not pqnzmuvhg88/09/2021aceWhite sbhusal1.63Information not ijqqqdeto23/11/2020EthnicityNot / yhmntjqbf35Sepeomuczgh not kzvweeqid23/09/2021referred LanguageEnglish buuakoyut33Glyvkklxrwk not ehqfwiwgm93/09/2021Marital StatusMarriedsbhusal1.63 Information not rqkdxgpne70/11/2020Do You Have A Medical Power Of Travograph Operator?Yes [email or web address] not wkpoegymg57/13/2025What Was The Date Of Your Most Recent Tobacco Screening?02/24/2025PI-685Information not mooavpcbe54/13/2025What Is Your Relationship Status?MarriedAPI-685Information not nschetbmt28/13/2025re You Sexually Active?YesAPI-685Information not sewkkjwvt24/13/2025How Many Days In The Past Year Have You Consumed 5 Or More Drinks?0API-685Information not /13/2025 Sex: Unknown Functional Status Question Answer Note LastModified by Organization D etails LastModified Time Do you use any illicit or recreational drugs? No [email or web address] not /13/2025What is your level of alcohol consumption?OccasionalAPI-685Information not sgnuvswmr43/13/2025Do you or have you ever used smokeless tobacco?Never used smokeless tobaccoAPI-[email or web address] not dejeltobe86/13/2025Do you or have you ever used e-cigarettes or vape?Never used electronic [email or web address] not uoiixeyfn23/13/2025 Mental Status None recorded. Family History Relationship Description Onset Age of this Age Resolved Age Notes LastModified by Organization Details LastModified Time Unspecified Relation Family history of diabetes mellitus [email or web address] wonoyeawi65/13/2025 20:55:38 Notes:Thyroid problems:Mothe r Medical History Condition [...] Note02/20/2025 20:55:41influenza, unspecified formulation 12/23/2024ompletedNot AvailableHealth Note02/20/2025 20:55:30HFPO-OZO-3 (COVID- 19) vaccine, SFQSHMMEVIU46/15/2025ompletedNot AvailableHealth Note02/20/2025 20:55:41zoster live03/11/2019completedNot [facility]/20/2025 20:55:41Novel Joenrmkhb-A5W3-09, all zkxftcfgreql99/18/2010completedNot AvsktsirtFzwdyhZjknhg59/17/2025 12:19:22Influenza, high-dose, trivalent, PF 01/12/2016completedNot ZsrfdibcsZeivsvPulcjp95/17/2025 12:19:22Influenza, high- dose, trivalent, PF12/14/2016completedNot PkoghhgjkSmvnphEnweax13/17/2025 12:19:54Jbay3907/03/2017completedNot JitsmtidgJmftraAzhayo07/17/2025 12:19:22 Influenza, high-dose, trivalent, PF01/03/2018completedNot Available[facility] 02/24/2025 12:19:22zoster qdngafoails52/14/2019completedNot Available HgiyriWazqaj97/17/2025 12:19:22zoster wevawyfkbyd94/27/2019completedNot DxohmysbxFqefjbDvzpep86/17/2025 12:19:22Influenza, high-dose, trivalent, PF 12/05/2018completedNot JsbzpdgnoFqzabxBrcfzc68/17/2025 12:19:22Influenza, high- dose, quadrivalent, PF12/25/2019completedNot SelfhweftZzsgsmPerxoa94/17/2025 12:19:22COVID-19, mRNA, LNP-S, PF, 100 mcg/0.5mL dose or 50 mcg/0.25mL dose 05/06/2020ompletedNot GgdvsbrgoCxvjfhXkvctf95/17/2025 12:19:22COVID-19, mRNA, LNP-S, PF, 100 mcg/0.5mL dose or 50 mcg/0.25mL dose06/02/2020ompletedNot MvqcoauyyMrnndaXltyci35/17/2025 12:19:22COVID-19, mRNA, LNP-S, PF, 100 mcg/0.5mL dose or 50 mcg/0.25mL dose01/17/2021ompletedNot LexycigpnIszqqzNwbqzy28/17/2025 12:19:22Influenza, adjuvanted, quadrivalent, PF02/21/2021ompletedNot Available ZyeosxQcqbcd07/17/2025 12:19:22COVID-19, mRNA, LNP-S, bivalent, PF, 30 mcg/0.3 mL dose12/22/2021ompletedNot WkbodxxcbEmwvjeWhjxqs29/17/2025 12:19:22Influenza, high-dose, quadrivalent, PF12/22/2021ompletedNot Available[facility]Ret[facility] 02/24/2025 12:19:22COVID-19, mRNA, LNP-S, PF, 50 mcg/0.5 mL01/25/2023ompleted Not IiabqpluqHddnaeKnejpr16/17/2025 12:19:22Influenza, high-dose, quadrivalent, PF01/25/2023ompletedNot LpcylnsugYvvbopBwsdap44/17/2025 12:19:22RSV, recombinant, protein subunit RSVpreF, adjuvant reconstituted, 0.5 mL, PF 01/25/2023ompletedNot TjlvwspnlGgujlrYsdojz79/17/2025 12:19:22Influenza, high- dose, trivalent, PF01/31/2024ompletedNot SwldmgorfLyzscyCpengj86/17/2025 12:19:22COVID-19, mRNA, LNP-S, PF, gabi-sucrose, 30 mcg/0.3 mL01/31/2024 completedNot PmhhyeujpGipmmbVtuxfo04/17/2025 12:19:22Pneumococcal conjugate PCV20, polysaccharide ZHP716 conjugate, adjuvant, PF04/13/2024ompletedNot HirdkuxhqExvsmbIzshnl07/17/2025 12:19:22pneumococcal polysaccharide PPV23 05/23/2011completedAilyn king [facility] Zmzfwih6912/08/2020 10:22:06 Past Encounters Encounter ID Performer Location Encounter Start Date Encounter Closed Date Diagnosis/Indication Diagnosis SNOMED-CT Code Diagnosis ICD10 Code Diagnosis IMO Codes Diagnosis Note [id number] QUENTIN CABRAL MD [facility] [place] [address] [place] [address],[address] [place] [address] 02/24/2025 12:16:56 02/24/2025 15:27:35 Malignant neoplasm of prostate 307572118 C61 Radiation lspwgzpr63122424H17.40 291423 Antonio rmkhkzgvw682408132A32.0 144336 Health Concerns Section Related Observation LastModified by Organization Detai ls LastModified Time None Recorded Concern Status LastModified by Organization Details LastModified Time None Recorded Payers Encounter Date Sequence Insurance Name Policy Number Policy Matthews Covered Member ID Matthews Member ID Guarantor Name 02/24/2025 1 [employer] - DOS ON O R AFTER 19 (MEDICARE REPLACEMENT/ADVANTAGE - PPO) [id number] Carroll Farley [id number] Carroll Farley Notes Date Note Type Note Provider Name and Address Orga nization Details Recorded Time 02/24/2025 text/html Chief complaint:Blood in gxaxz56-byzh-ufo male presents for evaluation of gross hematuria. [...] starting to urinate QUENTIN CABRAL MD [address] [facility],[address], [place], [address], [facility] Hrjdlkz24/17/2025 15:27:32
--- OUTSIDE RECORDS SUMMARY | 2025-02-25 13:02 | XMS_ITS | Clinical Summary ---
Author Organization [facility] Address [address] [place] [address] Care Team Providers Care Director Of Personnel Name Role Phone Hector Treadwell MD Primary Care Provider Allergies No known active allergies Medications MedicationSigDispense QuantityRefillsLast FilledStart DateEnd DateStatus fluocinonide 0.05% topical (LIDEX) 0.05 % gel Indications:Dermatitis due to food taken internallyAPPLY TOPICALLY TO AFFECTED AREA(S) 2 TIMES DAILY IF NEEDED. 30 g 05/27/2023ctive MULTIVITAMIN ORAL Take by mouth.Active latanoprost (XALATAN) [...] Overview (09/06/2021): Father, aunt, uncle (paternal) Mixed iktyobnfdtwwws71/29/2020Chronic atrial enlehwwxhcju46/29/2020 Anticoagulation monitoring, INR range 2-305Prostate skxzwk1608/08/2017 Cancer Staging: Clinical: Unsigned Overview (06/27/2020): S/p prostatectomy 2017 - follows with [place] [facility]. PSA raised 2020- On radiation Radiation colitis Encounters DateTypeDepartmentCare FcloQqqnexojudr60/08/2025Refill [address] [address] Hetcor Treadwell MD Refill Request (Warfarin)02/02/2025Telephone [facility] [place] [address] [facility] [address] [place] [address] Cardiology, Anw Appointment (/)01/20/2025 11:40 AM CSTOrders Only [facility] [id number] [place] [address] <No scans attached>01/20/2025 10:50 AM CSTAncillary Procedure [facility] [address] [place] [address] 01/20/2025 10:15 AM CSTOrders Only [address] [address] <No scans attached>01/20/2025 9:45 AM CSTOffice Visit [address] [address] Shannno Pepe PA Hematuria (Blood in urine started 01/14/25, fresh red color at start of stream and then turns brownat the end of urine stream, this morning urine had blood clots, no pain and no odor )01/20/2025Telephone [facility] [id number] [place] [address] Shannon Pepe PA Hnamrwz6801/20/2025nticoagulation (warfarin) [address] [address] Nurse, Ahg Anticoag Lpllacssbjhuyey62/12/2440Csyxmf43/11/2025Nurse Triage [facility] [address] [place] [address] Hector Treadwell MD Foguujkpm16/14/2025Telephone [address] [address] Hector Treadwell MD Anticoagulation (review)12/18/2024 11:30 AM CDTOrders Only [address] [address] Lab12/18/2024nticoagulation (warfarin) [address] [address] Nurse, g Anticoag Pazgbtnuyfgipyp07/10/2025Travelfrom Last 3 Months Immunizations ImmunizationAdministration DatesNext DueAMB INFLUENZA IIV3 (AGE 65+ YRS) PF (Flu Clinic Only)5COVID-19 vaccine (Moderna 100mcg/0.5mL) PF, V06/02/2020, 05/06/2020Influenza A (H1N1), Ydkwllliejy70/18/2010Influenza, High-dose Rnxxtzdswab22/22/2024,12/05/2018,01/03/2018,12/14/2016,01/12/2016Influenza, High-dose Quadrivalent Nmndzbdhzky89/17/2023,12/22/2021,12/25/2019Influenza, Inactivated AIIV4 (Age 65+ Years) Preserv Free02/21/2021neumococcal Conj 20- valent (Prevnar 20)04/13/2024Pneumococcal Poly,23-Valent (Pneumovax)05/23/2011 RSV, Recombinant ADJ Reconstituted (Arexvy 120MCG/0.5mL)01/25/2023Tdap07/03/2017 Zoster (Shingrix-RZV, recombinant)12/05/2018,08/22/2018 Family History Medical HistoryRelationNameCommentsCoronary artery diseaseFatherdied 59Relation NameStatusCommentsFather Social History Tobacco UseTypesPacks/DayYears UsedDateSmoking Tobacco: NeverSmokeless Tobacco: NeverAlcohol UseStandard Drinks/WeekCommentsYes4 (1 standard drink = 0.6 oz pure alcohol)4/weekPHQ-2AnswerDate RecordedPHQ-2 TOTAL [id number] ConnectionsAnswerDate RecordedDo you often feel lonely or isolated from those around you?lcohol UseAnswerDate RecordedHow often do you have a drink containing alcohol?How many drinks containing alcohol do you have on a typical day when you are drinking?How often do you have five or more drinks on one occasion?Financial Resource StrainAnswer Date RecordedDifficulty of Paying Living Jiktrfig345/03/2025Difficulty of Paying Living ExpensesNot on file04/13/2024Food InsecurityAnswerDate [...] InformationValueDate RecordedSex Assigned at BirthNot on fileLegal VmeIise5303/24/2012 8:08 AM INFORMATION CONSULTANT Gender IdentityNot on fileSexual OrientationNot on file Last Filed Vital Signs Vital SignReadingTime TakenCommentsBlood Plhfjnwc324/8801/20/2025 9:43 AM INFORMATION CONSULTANT Cfwsm422301/20/2025 9:43 AM UOWCkrkrzmqhpm96.7 ??C (98.1 ??F)01/20/2025 9:43 AM CSTRespiratory Xtzg426408/24/2024 8:13 AM CDTOxygen Iyccvkbsop645%01/20/2025 9:43 AM CSTInhaled Oxygen Concentration--Frkmnq20.9 kg (174 lb)01/20/2025 9:43 AM INFORMATION CONSULTANT Ptstrh340.3 cm (5' 9)01/20/2025 9:43 AM CSTBody Mass Index25.7103/22/2024 9:43 AM INFORMATION CONSULTANT Plan of Treatment DateTypeDepartmentCare Team (Latest Contact Info)Bimftqqxujx05/06/2026 10:15 AM CSTOrders Only [facility] [address] [place] [address] 04/01/2025 9:30 AM CSTOffice Visit [facility] [address] [facility] [address] [place] [address] Maciej Neri MD [address] [facility] [address] [place] [address] Health MaintenanceDue DateLast DoneCommentsDepression screening for age 12+ , 03/21/2023, 03/21/2023, Additional history existsMedicare Wellness for age 65+, 03/20/2023, 06/28/2021, Additional history existsCOVID-19 vaccine series (8 - Moderna risk 2024- season) , 01/31/2024, 01/25/2023, Additional history existsBMI (ht and wt on same day) for age 18+, 04/13/2024, 03/20/2023, Additional history existsTetanus xknpkto09Zoster (shingles) series for age 50+Hcyanfyne88/27/2019, 08/22/2018RSV vaccine for adults or ebffocrlcPntxvtapc36/17/2023Hepatitis C screening for age 18-79Completed 04/13/2024Pneumococcal series for age 50+Ruqquhcrb97/03/2025, 05/23/2011 Influenza NyaoebfNlmbusfra81/24/2025, 01/31/2024, 02/21/2021, Additional history existsHepatitis B series for 19+Aged OutNo longer eligible based on patient's age to complete this topic Procedures Procedure NamePriorityDate/TimeAssociated DiagnosisCommentsCREATININE,ISTAT Nmvqkvd3601/20/2025 10:53 AM INFORMATION CONSULTANT Observation or evaluation for suspected condition CT ABDOMEN PELVIS WSTAT103/22/2024 10:50 AM INFORMATION CONSULTANT Prostate cancer (HC) Painless hematuria INR,RMLLRyicmwh84/12/2025 10:08 AM INFORMATION CONSULTANT Chronic atrial fibrillation (HC) Anticoagulation monitoring, INR range 2-3 URINALYSIS TGSOTPOUUFNUjzhwld68/12/2025 10:06 AM INFORMATION CONSULTANT Painless hematuria URINE KJCXCAYBbkohqr48/12/2025 10:06 AM INFORMATION CONSULTANT Painless hematuria INR,YJZZRmzovce51/10/2025 11:14 AM CDT Chronic atrial fibrillation (HC) Anticoagulation monitoring, INR range 2-3 ANTI YVBBtcwjpd83/03/2025 3:08 PM INFORMATION CONSULTANT Encounter for hepatitis C screening test for low risk patient from Last 3 Months or Most Recently Relevant to Health Maintenance Results * POCT Creatinine (01/20/2025 10:53 AM INFORMATION CONSULTANT)ComponentValueRef RangeTest Method Analysis TimePerformed AtPathologist SignaturePOCT,CREATININE, ISTAT1.20.6 - 1.3 mg/dL01/20/2025 11:04 AM [facility] Specimen (Source)Anatomical Location / LateralityCollection Method / Volume Collection TimeReceived TimeBloodBLOOD SPECIMEN / UnknownQuest Collect / Xqkwafq9001/20/2025 10:53 AM CST01/20/2025 10:53 AM INFORMATION CONSULTANT Narrative Authorizing ProviderResult TypeResult StatusShannon Pepe PACHEMISTRYFinal ResultPerforming OrganizationAddressCity/State/ZIP CodePhone Number [facility] [address] [place] [address], [facility] [address] [place] [address], [place] * CT ABDOMEN PELVIS W (01/20/2025 10:50 AM INFORMATION CONSULTANT)Anatomical RegionLaterality ModalityAbdomen, Pelvis, AORTA, LIVER, SPLEENComputed TomographySpecimen (Source)Anatomical Location / LateralityCollection Method / VolumeCollection TimeReceived Time01/20/2025 11:24 AM INFORMATION CONSULTANT Impressions 01/20/2025 11:24 AM INFORMATION CONSULTANT 1. Significantly enlarged heart. This is multichamber [...] AM (Electronically Signed) Narrative 01/20/2025 11:24 AM INFORMATION CONSULTANT For Patients: As a result of the [...] PACTFinal Result * (ABNORMAL) INR - POCT [[id number]] - Standing Order (01/20/2025 10:08 AM INFORMATION CONSULTANT) Only the most recent of2 resultswithin the time period is included. ComponentValueRef RangeTest MethodAnalysis TimePerformed AtPathologist Signature INR2.3(H)ratio01/20/2025 10:18 AM [facility]: INRs >2.9 may be falsely elevated [...] PROTHROMBIN TIMEP27.9(H)10.5 - 13.1 sec01/20/2025 10:18 AM [facility]ICComment: Point of care fingerstick Prothrombin Time/INR results may vary from venous Prothrombin Time/INR methodologies. Any results exhibiting inconsistency with the patient's clinical status should be repeated using a venous Prothrombin Time/INR method. Specimen (Source)Anatomical Location / LateralityCollection Method / Volume Collection TimeReceived TimeBloodBLOOD SPECIMEN / UnknownQuest Collect / Unknown 01/20/2025 10:08 AM CST01/20/2025 10:08 AM INFORMATION CONSULTANT Narrative Authorizing ProviderResult TypeResult StatusLofab Treadwell MDLABORATORY Final ResultPerforming OrganizationAddressCity/State/ZIP CodePhone Number [facility] [address] [place] [address], [facility] [address] [place] [address] * (ABNORMAL) URINALYSIS MICROSCOPIC (01/20/2025 10:06 AM INFORMATION CONSULTANT)ComponentValueRef RangeTest MethodAnalysis TimePerformed AtPathologist SignatureWBC UA0-5< OR [...] Unknown 01/20/2025 10:06 AM CST01/20/2025 11:02 AM INFORMATION CONSULTANT Narrative Authorizing ProviderResult TypeResult StatusShannon DE LEONURINEFinal Result Performing OrganizationAddressCity/State/ZIP CodePhone Number [facility] [address] [address], * URINE CULTURE (01/20/2025 10:06 AM INFORMATION CONSULTANT)ComponentValueRef RangeTest Method Analysis TimePerformed AtPathologist SignatureCULTURE, URINE, ROUTINESEE NOTE 01/21/2025 10:01 PM CSTQUEST DIAGNOSTICSComment: ??CULTURE, URINE, ROUTINE ?Micro Number: ?[id number] ??Test Status: ? Final ??Specimen Source: ?? Urine, clean catch ??Specimen Quality: ??Adequate ??Result: ?No Growth Specimen (Source)Anatomical Location / LateralityCollection Method / Volume Collection TimeReceived TimeUrineURINE SPECIMEN / UnknownNon-Blood / Unknown 01/20/2025 10:06 AM CST01/20/2025 10:46 AM INFORMATION CONSULTANT Narrative Authorizing ProviderResult TypeResult StatusBrlisa MENDOZAIOLOGYFinal ResultPerforming OrganizationAddressCity/State/ZIP CodePhone Number [facility] [address] [address], * ANTI HCV (04/13/2024 3:08 PM INFORMATION CONSULTANT)ComponentValueRef RangeTest MethodAnalysis TimePerformed AtPathologist SignatureHEPATITIS C ANTIBODYNON-REACTIVE NON-REACTIVEQuest [facility]view HospitaleComment: HCV antibody was non-reactive. There is no laboratory evidence of HCV infection. In most cases, no further action is required. However, if recent HCV exposure is suspected, a test for HCV RNA (test code 83829) is suggested. For additional information please refer to http://education.[employer]/faq/WES33k9 (This link is being provided for informational/ educational purposes only.) Specimen (Source)Anatomical Location / LateralityCollection Method / Volume Collection TimeReceived TimeBloodBLOOD SPECIMEN / Yachbgu1704/13/2024 3:08 PM INFORMATION CONSULTANT 04/13/2024 3:09 PM INFORMATION CONSULTANT Narrative Authorizing ProviderResult TypeResult StatusLofab Treadwell MDSEND OUTS Final ResultPerforming OrganizationAddressCity/State/ZIP CodePhone Number [facility] [address] [place] [address], [facility] [address] [place] [address] from Last 3 Months or Most Recently Relevant to Health Maintenance Insurance * Guarantor: Carroll Farley TypeRelation to PatientDate of BirthPhone Billing AddressPersonal/FdmyqeDfxg1945 [address] [place] [address] Advance Directives TypeDate RecordedPatient RepresentativeExplanationHealthcare Directive09/07/2015 6:47 AM * Full Code (Latest Code Status on File) Date ActivatedDate InactivatedComments06/13/2022 11:39 AM06/13/2022 3:31 PMQuestion AnswerCommentsCode Status Discussion:* Reviewed Preferences * Full Code Date ActivatedDate InactivatedComments08/08/2017 9:17 AM08/09/2017 3:02 PM * Full Code Date ActivatedDate InactivatedComments09/07/2015 7:09 AM09/07/2015 3:10 PM Care Teams Team MemberRelationshipSpecialtyStart [place] [address] [place] [address] PCP - GeneralFamily Practice06/30/19
--- OUTSIDE RECORDS SUMMARY | 2025-02-25 13:02 | XMS_ITS | CCD ---
Author Name Interface, D3Dtczvwl lity Address [address] [place] [address] [address] [facility] Address [address] [place] [address] Reason for Visit Social History Date Name Value 11/07/2024 Sex Unknown
--- OUTSIDE RECORDS SUMMARY | 2025-02-25 13:02 | XMS_ITS | Data Portability ---
Author Organization [place] [facility] [place] [facility], [facility] Address [address] [place] [address] Care Team Providers [facility] Medical Specialist Name Role Phone NIDHI SAHU Primary Care [...] last office visit note, PSA, radiation oncology tbpolhsmtpfvb41Zad hwjdqimwg85/17/2025 15:26:30 Plan of Treatment Reminders Order DateSubmit DateProviderLast Modified ByOrganization DetailsLast Modified TimeDetailsAppointmentsNEW PATIENT 15104/27/2024 01:45PMLAURA CABRAL MDNot availableNot availableNot availableLabPSA, total, serum or imhpic7105/10/2020 05/10/2020[facility], [address], [address], [place], [address], 03 12:18:11PSA, total, serum or ftngyn93ATHENAMinnescache [facility], [address], [address], [place], [address], 104/14/2019 14:59:02Referral undersea & hyperbaric medicine referral - Please call the pt to setup a consult. 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 THENAFAXHyperbaric Medicine [facility], [address], [place], [address], 104/27/2024 16:26:03radiation oncologist referral - PLEASE CONTACT PATIENT TO SCHEDULE CONSULT FOR PROSTATE CANCER [facility], [address], [address], [place], [address], 005/28/2020 11:48:47ProceduresNone recorded.Surgeries None recorded.ImagingCT, whqhvbw95[facility], [facility] , [place], [address], 02/24/2025 15:22:39Medication OrdersNone recorded. Patient TargetsNo targets recorded. Patient Instructions Encounter Date Encounter Id Patient Instructions Last Modified By Organization Details Last Modified Time 02/24/2025 [id number] 79-year-old male presents for evaluation of gross [...] to emergency department if clot retention recurs. hgmxzjjk86Ing myawojpns68/17/2025 15:27:22 Reason for Referral PLEASE CONTACT PATIENT [...] PSA, total 0.1 3 NG/mL 0.00-4.00 Not Available[facility] [address], [address], [address] 14:28:27 PSA, total, serum or plasmaPSA, total0.17NG/mL0.00-4.00Not AvailableM[facility]hest[facility] [address] [facility] [address], [place], [address], 7[address]/14/2019 14:59:02 /1PSA, total, serum or plasmaPSA, total0.24NG/mL0.00-4.00Not Available[facility] [address] [facility] [address], [place], [address], [address] 12:18:11 /5CT, abdomen + pelvis, w/ contrastNo observation recorded. agwua6Dbz Ctegddebo71/15/2025 15:53:43 Result Notes None recorded. Problems Name Problem SNOMED Code Status Onset Date Resolution Date Notes Provider Name and Address Organization Details Recorded Time Neurogenic urinary bladder 644787317 Active 5 N31.2 : Neurogenic bladderNot JojkpbtptYgobvfTeayzf36/10/2020 23:41:45Abnormal findings on microbiological examination of xfywq193194129Zuboro17/28/6051W29.7 : Abnormal findings on microbiological examination of urineNot Available DpjrbuMiuqju56/10/2020 23:41:45Prostate specific antigen above reference range 252877145Crubmg59/28/5888B38.2 : Raised prostate specific antigenNot Available DgtqujZsbkfn63/10/2020 23:41:45Frank bqkkrvupg703324891Fkbrrr46/24/9744X94.0 : Antonio hematuriaMICYUE CABRAL MD [address] [facility],[address], [address], [facility] Aeuatrg84/17/2025 15:21:00Clinical ngtywdaUczqhy32/01/9973W75.0 : Calculus in diverticulum of bladderNot ZfzhegbesWwkcmjZrkzjr60/10/2020 23:41:45 Sensation as if urinary bladder still hhqs742474966Fcrczk41/04/0774K78.14 : Sensation as if bladder still fullNot KcvwqyoenWbykhmTcayfy44/10/2020 23:41:46 Clinical lnyduigJugmsy96/21/1467I45.1 : Desire for urinationNot Available MtmyfoTzadth37/10/2020 23:41:46Clinical otsssfzQrvlvx15/21/7412G98.9 : Retention of urineNot OlemjoamoVjevmfQuybjx30/10/2020 23:41:46Malignant neoplasm of xzchxngs689315638Doxtgu50/27/7429R00 : Malignant tumor of prostateNot Available VzfwuhLkvkdz39/10/2020 23:41:45Genuine stress fqbpntlcevkj54808430Kftuqp 10/10/2017N39.3 : Genuine stress incontinenceNot VokvrllymPpuousIejomq20/10/2020 23:41:45Erectile dysfunction following radical rlddfmknbujnv567697348371588 Qzgxml3410/10/2017N52.31 : Erectile dysfunction following radical prostatectomyNot NalnhntupTyddxmIapdzd72/10/2020 23:41:45History of malignant neoplasm of itfrsuhq192619172Qkuiht03/19/1133E67.46 : History of malignant neoplasm of prostateNot YkfmrcxdaYfmxbfAxlhyh24/10/2020 23:41:45Radiation cgbvipzl56978224 Ndfmrt8902/24/2025LAURA CABRAL MD [address] [facility],[address] [place] [address], [address], [facility] Vztfzmu40/17/2025 15:20:06 Problem Notes None recorded. Procedures Surgical History Date Name Laterality Status Provider Name and Address Organization Details Recorded Time 02/24/2025 COMPLEX VISIT completedLAURA CABRAL MD [address] [place] [address], [address], [place] 5109704/27/2024 15:25:1615CystoscopyMalecompleted LAURA CABRAL MD [address] [place] [address], [address], [place] [address]/27/2024 15:26:05043Diagnostic sigmoidoscopy completedNot [facility] Note02/20/2025 20:55:3903iagnostic colonoscopycompletedNot [facility] Note02/20/2025 20:55:39031Past Data ReviewedcompletedToolya Cabral MD [address] [place] [address], [address], [facility]05/17/2020 13:44:51031Blood Draw/DIRECTOR MACHINE/PSA RESULTS completedStacy [facility]winJoseM [facility]05/10/2020 10:50:4512 Blood Draw/DIRECTOR MACHINE/PSA RESULTScompletedNaiad [facility] Mdqxqzh90/04/2020 11:52:5308Blood Draw/DIRECTOR MACHINE/PSA RESULTScompletedEmmar [facility]elloFederal [facility], [facility]11/03/2019 11:40:24008/18/2017Laps surg gbhs1gpe rpbic radcompletedNot NvsgnrvjwBdniohPladuc41/11/2020 12:09:Biopsy of prostatecompletedNot OfbhqvegmGntbtnOrqlkt63/11/2020 12:09:Njx aa&/strd other pn/branch completedNot PlfyhzhpxQbncllGzutun55/11/2020 12:09:Colonoscopy and biopsycompletedNot SyztfletcVkbfzcAwvtqn40/11/2020 12:09:Us urine capacity measurecompletedNot VrjvgyozwLrhllfBtlldl15/11/2020 12:09:40005/01/2017 Us urine capacity measurecompletedNot SldrzasdsLpjfufIjnknk56/11/2020 12:09:40 04/02/2017Us urine capacity measurecompletedNot CdupyfdrlKjcjreTizmeh62/11/2020 12:09:39009/25/2016Us urine capacity measurecompletedNot [facility] 08/20/2019 12:09:39104/25/2015Us urine capacity measurecompletedNot Available OxqcgmGmvgml90/11/2020 12:09:40104/25/2015Insert bladder cathetercompletedNot RkfkzrpggKecygnMikfrb69/11/2020 12:09:40012/02/2015CystourethroscopycompletedNot JnfmjgsddJnrfyxHzqhgg55/11/2020 12:09:39010/13/2015Electro-uroflowmetry first completedNot SlkrfejgyGehltyLpacfu73/11/2020 12:09:39010/13/2015Intraabdominal pressure testcompletedNot WbqxuctruAzgtqsMbpnce14/11/2020 12:09:40010/13/2015 Cystometrogram w/vp rheumatology&upcompletedNot MnxpelwckZffvwdVsccso80/11/2020 12:09:40 10/13/2015Anal/urinary muscle studycompletedNot WljlcptapHnkxgxZamvsc14/11/2020 12:09:40008/10/2015CystourethroscopycompletedNot BufngsmzyJcbpvgHpueyp27/11/2020 12:09:39008/24/2013Us urine capacity measurecompletedNot [facility] 08/20/2019 12:09:39104/23/2012Us urine capacity measurecompletedNot Available JsmhvhHbqmvp52/11/2020 12:09:40008/18/2012Us urine capacity measurecompletedNot FuldezsonHgzilxCedphj70/11/2020 12:09:40006/09/2012Us urine capacity measure completedNot XaifywdhuKqxmnuSmjeyy55/11/2020 12:09:Prostatic rf thermotxcompletedNot OgoictlsvIyfipkNidmdn01/11/2020 12:09:Insert bladder cathetercompletedNot HamryimixVzjsehMlzgvb38/11/2020 12:09: Us urine capacity measurecompletedNot AstahcmioWpceqfXnzutd65/11/2020 12:09:40 12/11/2011Us urine capacity measurecompletedNot KswmtqotwJesjotRlvtjf34/11/2020 12:09:Us urine capacity measurecompletedNot AvailableCritical access hospital 08/20/2019 12:09:Us urine capacity measurecompletedNot Available YcguuqJeruwu90/11/2020 12:09:CystourethroscopycompletedNot Available UdqgzlSxhvye70/11/2020 12:09:Us urine capacity measurecompletedNot CxrlkskksZeektnZuhecw71/11/2020 12:09:40Removal of prostatecompletedNot [facility] Note02/20/2025 20:55:39Removal of sperm duct(s)completedNot [facility] Note02/20/2025 20:55:39 Imaging Results None recorded. Procedure Notes None recorded. Medical Equipment None Reported. Allergies Allergen ID Allergen Name Allergen Category Reaction Reaction Severity Criticality Documentation Date Start Date Code Code System Note Provider Name and Address Organization Details Recorded Time 231071 cow milk allergenic extract food,medicati on Not available Not available Not hogwwwwqf56/11/0033070045XrFsxxGrv PmhjnyygxBoifnoJwfimd16/11/2020 00:03:58 Medications Name Sig Start Date Stop [...] 1 mg tabletPLEASE SEE ATTACHED FOR DETAILED ATZAINGDUP87/17/7101txugfrrim3392-91-42 HN: Patient reports no longer takingNot AvailableNot AvailableNot Available ipratropium bromide 42 mcg (0.06 %) nasal sprayINHALE 2 SPRAYS IN BOTH NOSTRILS THREE TIMES DAILY.activeNot AvailableNot AvailableNot Availablelatanoprost2.5ml of 0.005% 1/dayactiveNot AvailableNot AvailableNot Availablemultivitamin MULTIVITAMIN 1/dayactiveNot AvailableNot AvailableNot AvailableShingrix (PF) 50 mcg/0.5 mL intramuscular suspension, kit05/17/2020ompletedNot AvailableNot AvailableNot AvailableFluzone High-Dose 2019-20 (PF) 180 mcg/0.5 mL intramuscular kqezzkc3105/17/2020ompletedNot AvailableNot AvailableNot Available Fluzone High-Dose Quad 2019- (PF) 240 mcg/0.7 mL IM syringePHARMACY QGDSNHOZLNHH68/09/2021ompletedNot AvailableNot AvailableNot Available Vitals Date Recorded Body height Body mass index (BMI) Body weight Provider Name and Address Organization Details Last Updated DateTime 05/17/2020 180.34 cm 23.7 kg/m2 70232.7 g Cadence Sood [facility] 05/17/2020 11:55:32 Date Recorded Body height Body mass index (BMI) Body weight Provider Name and Address Organization Details Last Updated DateTime 11/13/2019 180.34 cm 23 kg/m2 22779.74 g Nelia Esposito [facility] 11/13/2019 10:19:40 Date Recorded Body weight Body mass index (BMI) Body height Provider Name and Address Organization Details Last Updated DateTime 02/24/2025 27579.12902 12938 g 24.4 kg/m2 177.8 cm Not Available Health Note 02/24/2025 12:18:45 Social History Question Answer Notes LastModified by Organization D etails LastModified Time Tobacco Smoking Status Never Smoker Not AvailableHealth Note02/20/2025 20:55:39Do You Have An Advance Directive?Yes [email or web address] not ygkzfyiit34/13/2025What Is Your Level Of Caffeine Consumption?NoneAPI-685Information not ygnzinttq86/13/2025How Much Tobacco Do You Chew?NoneAPI-685Information not afbypifao51/13/2025Have You Or Anyone In Your House Tested Positive For COVID-19 In The Past 14 Days?Vpnntbxgkjf81 Information not izmeyelvc19/09/2021Have You Or Anyone In Your House Been Exposed To COVID-19 In The Past 14 Days?Fkridhthdag34Kdhgwsgcudm not bwiaigwsx63/09/2021 Have You Or Anyone In Your Home Experienced Symptoms Of COVID 19 Such As Fever >100.4, ShortnessOf Breath, Difficulty Breathing, Or A Cough?Npvglhmvlkt74 Information not xidlgmdxi16/09/2021Have You Traveled Outside Of [place] In The Past 30 Days?Lszuieouawa65Slekglbyyyw not oawklynid62/09/2021RaceWhite sbhusal1.63Information not yvdxgqvxa13/11/2020EthnicityNot / piyjimtda10Uoendxopqvu not jivgrmznx82/09/2021referred LanguageEnglish nyokuxsrt81Rygingfnyxh not uhxsvhibr19/09/2021Marital StatusMarriedsbhusal1.63 Information not bdvkevbjh31/11/2020Do You Have A Medical Power Of Lineworker?Yes [email or web address] not juaohcolp08/13/2025What Was The Date Of Your Most Recent Tobacco Screening?02/24/2025PI-685Information not lsehvibhp46/13/2025What Is Your Relationship Status?MarriedAPI-685Information not wfzmcqxyu47/13/2025re You Sexually Active?YesAPI-685Information not dcuxwoaxb16/13/2025How Many Days In The Past Year Have You Consumed 5 Or More Drinks?0API-685Information not /13/2025 Sex: Unknown Functional Status Question Answer Note LastModified by Organization D etails LastModified Time Do you use any illicit or recreational drugs? No API-[email or web address] not roijweppr42/13/2025What is your level of alcohol consumption?OccasionalAPI-685Information not /13/2025Do you or have you ever used smokeless tobacco?Never used smokeless tobaccoAPI-685Information not odzestwui96/13/2025Do you or have you ever used e-cigarettes or vape?Never used electronic cigarettesAPI-685Information not djnezqnji86/13/2025 Mental Status None recorded. Family History Relationship Description Onset Age of this Age Resolved Age Notes LastModified by Organization Details LastModified Time Unspecified Relation Family history of diabetes mellitus API-[email or web address] avnygeoug21/13/2025 20:55:38 Notes:Thyroid problems:Mothe r Medical History Condition [...] Note02/20/2025 20:55:41influenza, unspecified formulation 5completedNot AvailableHealth Note02/20/2025 20:55:31PNVE-IOQ-3 (COVID- 19) vaccine, MHCGMWMQNYB62/15/2025completedNot AvailableHealth Note02/20/2025 20:55:41zoster live03/11/2019completedNot AvailableHealth Note02/20/2025 20:55:41Novel Vmqdefobq-F3I5-51, all oxrqksjetewu85/18/2010completedNot RlbxyqzmhQvjsdlCedyid23/17/2025 12:19:22Influenza, high-dose, trivalent, PF 01/12/2016completedNot IcnfyejlwBomgsrHnnnxh22/17/2025 12:19:22Influenza, high- dose, trivalent, PF12/14/2016completedNot LqalggjbkKfhwiuNfgqfa81/17/2025 12:19:87Cgdv1407/03/2017completedNot SywexwkeoHhkpzbWopfjw16/17/2025 12:19:22 Influenza, high-dose, trivalent, PF01/03/2018completedNot Available[facility] 02/24/2025 12:19:22zoster nhrfbutobqw64/14/2019completedNot Available XkpnvzTzocla18/17/2025 12:19:22zoster pskdcctflog16/27/2019completedNot FigjczsgwYdpoaqYvjcop87/17/2025 12:19:22Influenza, high-dose, trivalent, PF 12/05/2018completedNot ZnuawoxexPqrepvKqdhrn63/17/2025 12:19:22Influenza, high- dose, quadrivalent, PF12/25/2019completedNot BelegztyeThhafkNchnfs90/17/2025 12:19:22COVID-19, mRNA, LNP-S, PF, 100 mcg/0.5mL dose or 50 mcg/0.25mL dose 05/06/2020ompletedNot KqbfhdrvlZfmpifWbbyaj62/17/2025 12:19:22COVID-19, mRNA, LNP-S, PF, 100 mcg/0.5mL dose or 50 mcg/0.25mL dose06/02/2020ompletedNot GyrzdefdtKvkxkrAcuuts06/17/2025 12:19:22COVID-19, mRNA, LNP-S, PF, 100 mcg/0.5mL dose or 50 mcg/0.25mL dose01/17/2021ompletedNot BzmlyhkptUtrpprQhxevr51/17/2025 12:19:22Influenza, adjuvanted, quadrivalent, PF02/21/2021ompletedNot Available QgnxdkVhgevk37/17/2025 12:19:22COVID-19, mRNA, LNP-S, bivalent, PF, 30 mcg/0.3 mL dose12/22/2021ompletedNot MfhnhfarzRibyxzRzuvel74/17/2025 12:19:22Influenza, high-dose, quadrivalent, PF12/22/2021ompletedNot AvailableAthCar[facility] 02/24/2025 12:19:22COVID-19, mRNA, LNP-S, PF, 50 mcg/0.5 mL01/25/2023ompleted Not GfanlyfqvVlwfsdWrlxsv46/17/2025 12:19:22Influenza, high-dose, quadrivalent, PF01/25/2023ompletedNot YbvzitnjbVqorbuYxhblq87/17/2025 12:19:22RSV, recombinant, protein subunit RSVpreF, adjuvant reconstituted, 0.5 mL, PF 01/25/2023ompletedNot CattazrwqJiczqmYpdmqt62/17/2025 12:19:22Influenza, high- dose, trivalent, PF01/31/2024ompletedNot WsypbfpalOerdjoIeyksq82/17/2025 12:19:22COVID-19, mRNA, LNP-S, PF, gabi-sucrose, 30 mcg/0.3 mL01/31/2024 completedNot WadaecfovBivgswHdftib01/17/2025 12:19:22Pneumococcal conjugate PCV20, polysaccharide IPR658 conjugate, adjuvant, PF02/5completedNot TpgnmekvyOuprkkGdhubq19/17/2025 12:19:22pneumococcal polysaccharide PPV23 05/23/2011completedAilyn Abe [facility] Qhigzea4212/08/2020 10:22:06 Past Encounters Encounter ID Performer Location Encounter Start Date Encounter Closed Date Diagnosis/Indication Diagnosis SNOMED-CT Code Diagnosis ICD10 Code Diagnosis IMO Codes Diagnosis Note [id number] Ha Cabral MD [address] [address] 11/03/2019 11:09:01 11/03/2019 11:45:58 History of malignant neoplasm of prostate 874565822 Z85.46 [id number] Cabral [address] [address] 11/13/2019 10:12: 10:55:32Malignant neoplasm of cyqxnsdf890038305P06 psa recurrence. t3 disease suggest local recurrence. psa is low. discuss rad tx vs obsewrve. electsto follow. candier rad on consult.[id number] Cabral MD [address] [address] 02/12/2020 11:50:14104/14/2019 11:54:41History of malignant neoplasm of prostate 514016836K84.46 [id number] Cabral [address] [address] 05/10/2020 10:48:15005/10/2020 10:51:44History of malignant neoplasm of prostate 393747561D12.46 [id number] Cabral [address] [address] 05/17/2020 11:28:49005/17/2020 16:26:28Malignant neoplasm of byrqkova107149418H23 psa recurrence. t3 disease PSA doubling time [...] pelvic radiation BX next most appropriate step here.[id number] LAURA CABRAL, MDMet[place] [address] [place] [address],[address] [address] 02/24/2025 12:16:56104/27/2024 15:27:35Malignant neoplasm of pbroczxe702982130H61 Radiation grynhnpz89542171T15.40 400212 Antonio itmlmipvq090093954E14.0 016691 Health Concerns Section Related Observation LastModified by Organization Detai ls LastModified Time None Recorded Concern Status LastModified by Organization Details LastModified Time None Recorded Advance Directives Directive Y: Payers Insurance Date Sequence Insurance Name Policy Number Policy Matthews Covered Member ID Matthews Member ID Guarantor Name 02/19/2025 2 [employer] - DOS PRIOR TO 2 Carroll Saavedra [id number] Laura FarleyUCARE - DOS PRIOR TO 2021 (MEDICAID REPLACEMENT - HMO)Carroll Saavedra [id number] [facility] - DOS ON OR AFTER 19 (MEDICARE REPLACEMENT/ADVANTAGE - PPO)[id number] [facility] Notes Date Note Type Note Provider Name and Address Orga nization Details Recorded Time 11/13/2019 text/html ROS as noted in the [facility] prostate cancer. s/p davrp. T3 a pos margin. neg LN. psa 0.13. last january. feels well no complaints. bone pain or weight loss. prior DAVRP. uses [facility] for sexual activity. hesitant , weak stream, nocturia times one. seldom incontinence.Ha Cabral MD [address] [facility],[address], [place], [address], [facility] Pozjelx7011/13/2019 10:44:1503/11/2020text/htmlROS as noted in the [facility] prostate cancer. s/p davrp. T3 a pos margin. neg LN. . now psa rise to 0.24 we had discussed radiation oncology consult. he was considering. feels well no complaints. bone pain or weight loss. prior DAVRP. uses [facility] for sexual activity. hesitant , weak stream, nocturia times one. seldom incontinence.Ha Cabral MD [address] [facility],[address], [place], [address], [facility] Qdzhwjv4405/17/2020 13:44:5912text/html Chief complaint:Blood in jynsm18-lhcd-kem male presents for evaluation of gross hematuria. [...] starting to urinate LAURA CABRAL MD [address] [facility],[address], [place], [address], [facility] Bhtbktu54/17/2025 15:27:32
--- NOTE | 2025-02-25 13:44 | ED_ITS ---
HPI - Male Genitourinary General Date Seen: 02/25/25 Chief complaint: Urogenital Problems, Male Stated complaint: Unable to clean catheter Time Seen by Provider: 02/25/25 13:11 Source: patient Mode of arrival: ambulatory Limitations: no limitations History of Present Illness HPI Narrative: Patient is a 79-year-old male presenting to the emergency department for concerns of a clogged Awad catheter. He initially had a Awad catheter placed on 02/20/2025. It was then removed yesterday at his urologist appointment. He was unable to urinate that night so came back to the emergency department in another Awad catheter was placed and CBI was done. He states he has been draining blood-tinged urine since then but has been functional. He was supposed to go to get a CT scan with and without contrast today for his bladder so he decided to flush his Awad before he went and was unable to get any return. He was concerned that it was clogged again. Was not having any pain at that time though like previously when it was clogged. He states he does have a history of prostate cancer with previous radiation. Denies any other concerns at this time. Related Data Home Medications ?Medication ?Instructions ?Recorded ?Confirmed atorvastatin .Route 08/21/23 02/02/25 warfarin .Route 08/21/23 02/02/25 Allergies Allergy/AdvReac Type Severity Reaction Status Date / Time No Known Drug Allergies Allergy Verified 02/24/25 22:57 Review of Systems Narrative: Pertinent systems reviewed and were negative unless stated in HPI PFSH PFS Medical History Retinal detachment, left ?H33.22 - Serous retinal detachment, left eye (ICD-10) Primary osteoarthritis of left knee ?M17.12 - Unilateral primary osteoarthritis, left knee (ICD-10) Prostate cancer ?C61 - Malignant neoplasm of prostate (ICD-10) 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 (ICD-10) Mixed hyperlipidemia ?E78.2 - Mixed hyperlipidemia (ICD-10) BCC (basal cell carcinoma), ear ?C44.211 - Basal cell carcinoma of skin of unspecified ear and external auricular canal (ICD-10) Anticoagulation monitoring, INR range 2-3 ?Z79.01 - alf (current) use of anticoagulants (ICD-10) Chronic atrial fibrillation ?I48.20 - Chronic atrial fibrillation, unspecified (ICD-10) Surgical History History of prostatectomy (08/08/17) ?Z90.79 - Acquired absence of other genital organ(s) (ICD-10) History of cystoscopy (09/07/15) ?Z98.890 - Other specified postprocedural states (ICD-10) Family History Father Coronary artery disease Social History Smoking Status: Never smoker Do you use any of these nicotine containing products: None Second hand tobacco smoke exposure: No Non-prescribed substance use: denies use Exam Narrative: Exam Narrative: Const: Well-nourished, Well-developed, in no distress Eyes: PERRL, no conjunctival injection, and symmetrical lids HENT: Atraumatic external nose and ears. Moist mucous membranes. Neck: Symmetric, trachea midline, No thyromegaly. CVS: RRR, No murmurs or gallops. Peripheral pulses 2+ and equal in all extremities RESP: Unlabored respiratory effort. Clear to auscultation bilaterally. GI: Nontender/Nondistended, No rebound or guarding. MSK:Extremities w/o deformity, Normal Active ROM Skin: Warm, Dry. No rashes or lesions. Neuro: Normal Muscle tone, No focal neurological deficits. Psych: Awake, Alert, & Oriented x3. Appropriate mood and affect. Const: Vital Signs, click to edit/add: Vital Signs - 24 hr 02/25/25 12:59 Temperature 98.1 F Pulse Rate [Pulse Oximeter] 95 Respiratory Rate 16 Blood Pressure [Ri ght Upper Arm] 117/78 Pulse Oximetry 99 Oxygen Delivery Me thod Room Air Course Vital Signs Vital signs: Initial Vital Signs Temperature 98.1 F 02/25/25 12:59 Temperature Source Temporal Artery Scan 02/25/25 12:59 Pulse Rate 95 02/25/25 12:59 Respiratory Rate 16 02/25/25 12:59 Blood Pressure 117/78 02/25/25 12:59 Blood Pressure Mean 91 02/25/25 12:59 Blood Pressure Position Sitting 02/25/25 12:59 Pulse Oximetry 99 02/25/25 12:59 Oxygen Delivery Method Room Air 02/25/25 12:59 Vital Signs Temperature 98.1 F 02/25/25 12:59 Pulse Rate 95 02/25/25 12:59 Respiratory Rate 16 02/25/25 12:59 Blood Pressure 117/78 02/25/25 12:59 Pulse Oximetry 99 02/25/25 12:59 Oxygen Delivery Method Room Air 02/25/25 12:59 Temperature 98.1 F 02/25/25 12:59 Pulse Rate 95 02/25/25 12:59 Respiratory Rate 16 02/25/25 12:59 Blood Pressure 117/78 02/25/25 12:59 Pulse Oximetry 99 02/25/25 12:59 Oxygen Delivery Method Room Air 02/25/25 12:59 MDM - Male Genitourinary MDM Narrative Medical decision making narrative: Patient is a 79-year-old male presenting to the emergency department for a clogged Awad catheter. No other concerns noted at this time. Will have nursing staff try to unclog it. I spoke to him about doing CBI versus just flushing it. He prefers flushing as he does not want the Awad changed again. This is reasonable. We were able to get it unclogged and clear. He will be discharged. I informed him to follow up with his urologist and that him know that he needed a catheter placed again Discharge Plan Discharge Clinical Impression: Urinary catheter dysfunction Qualifiers: Encounter type: initial encounter Qualified Code(s): T83.018A - Breakdown (mechanical) of other urinary catheter, initial encounter Patient Disposition: Home, Self-Care Condition: Stable Additional Instructions: Continue to flush your Awad as needed. I recommend talking T your urologist again today and let them know that you had a catheter placed last night due to blockage from blood clot and needed it flushed again today. He started getting lightheaded or developed any other symptoms return for re-evaluation. Prescriptions: No Action warfarin .Route atorvastatin [Lipitor] .Route Follow Up/Referrals: Hector Treadwell MD [Primary Care Provider, Family Practice] Stand Alone Forms: [employer] Info Instructions
== END 2025-02-25 14:15 | disposition home or self-care (01) ==
PROVIDERS: Emergency Provider Student in an Organized Health Care Education/Training Program; PCP Family Medicine
DX: T83.091A Other mechanical complication of indwelling urethral catheter, initial encounter (principal); Z85.46 Personal history of malignant neoplasm of prostate; Z92.3 Personal history of irradiation; Y73.8 Miscellaneous gastroenterology and urology devices associated with adverse incidents, not elsewhere classified
CPT/HCPCS: 99283

== ENCOUNTER 2025-03-09 06:17 | Emergency (ER) | payer MEDICARE, SELFPAY ==
[2025-03-09] VITALS (16 sets, daily range): BP systolic 116–138; BP diastolic 83–110; PULSE 69–88; RESP 16; TEMP 36.6–36.8; O2SAT 92–100; BMI 23.7
--- OUTSIDE RECORDS SUMMARY | 2025-03-09 06:20 | XMS_ITS | CCD ---
Author Name Interface, [employer] Address [address] [place] [id number] [facility] Address [address] [place] [id number] Reason for Visit Social History Date Name Value 11/07/2024 Sex Unknown
--- OUTSIDE RECORDS SUMMARY | 2025-03-09 06:20 | XMS_ITS | Data Portability ---
Author Organization [place] [facility] [place] [facility] Address [address] [place] [address] Care Team Providers Care Travel Specialist Name Role Phone NIDHI SAHU Primary Care Provider [phone] Assessment Encounter Date Assessment Date Assessment LastModified [...] last office visit note, PSA, radiation oncology vgabykqexgpma28Mia yfxabdjmc21/17/2025 15:26:30 Plan of Treatment Reminders Order DateSubmit DateProviderLast Modified ByOrganization DetailsLast Modified TimeDetailsAppointmentsESTABLISHED 15006/03/2025 10:00JOSE JUAN CABRAL MDNot availableNot availableNot availableLabPSA, total, serum or kkhlkb2805/10/2020 05/10/2020[facility], [address], [address], [place], [address], 03 12:18:11PSA, total, serum or vvacaa75ATHENAMinnesdelta [facility], [address], [address], [place], [address], 104/14/2019 14:59:02Referral undersea & hyperbaric medicine referral - Please call the pt to setup a consult. 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 THENAFAXHyperbaric Medicine [facility] [place], [address], [place], [address], 104/27/2024 16:26:03radiation oncologist referral - PLEASE CONTACT PATIENT TO SCHEDULE CONSULT FOR PROSTATE CANCER [facility] On[facility], [address], [address], [place], [address], 005/28/2020 11:48:47ProceduresNone recorded.Surgeries None recorded.ImagingCT, [email or web address], [facility] [facility] , [place], [address], 02/24/2025 15:22:39Medication OrdersNone recorded. Patient TargetsNo targets recorded. Patient Instructions Encounter Date Encounter Id Patient Instructions Last Modified By Organization Details Last Modified Time 02/24/2025 [id number] 79-year-old male presents for evaluation of gross [...] to emergency department if clot retention recurs. jedusfrh07Jxl rxkqholcr21/17/2025 15:27:22 Reason for Referral PLEASE CONTACT PATIENT [...] PSA, total 0.1 3 NG/mL 0.00-4.00 Not Available[facility] [address] [facility] [address] [facility] [address], [place], [address], 08 14:28:27 PSA, total, serum or plasmaPSA, total0.17NG/mL0.00-4.00Not AvailableMingeising[facility] [address], [place], [address], 204/14/2019 14:59:02 /1PSA, total, serum or plasmaPSA, total0.24NG/mL0.00-4.00Not Available[place] [facility] [address] [facility] [address], [place], [address], 34 12:18:11 T, abdomen + pelvis, w/ contrastNo observation recorded. ipdjc2Lxj Cmuxsdjbq25/15/2025 15:53:431T ABD wo&W & pelv wo&W (no oral cont)No observation recorded.[facility] Eliud [address] [facility] Sirena Martin, [place], [address], 105/04/2024 14:49:50 Result Notes None recorded. Problems Name Problem SNOMED Code Status Onset Date Resolution Date Notes Provider Name and Address Organization Details Recorded Time Neurogenic urinary bladder 130473849 Active 5 N31.2 : Neurogenic bladderNot BgsxwnvloFwipxqZurksf13/10/2020 23:41:45Abnormal findings on microbiological examination of xlbwc809482986Yyddba58/28/8648L45.7 : Abnormal findings on microbiological examination of urineNot Available GrcqiiCxyxmm65/10/2020 23:41:45Prostate specific antigen above reference range 530862075Hhisof17/28/8791Q22.2 : Raised prostate specific antigenNot Available WqesgfXxekjd51/10/2020 23:41:45Frank uekaibnrs795555428Pzueqo18/24/0045P53.0 : Antonio hematuriaLAURA CABRAL MD [address] [facility] [address], [place], [address] Pwnxsny89/17/2025 15:21:00Clinical wewreqsNqxgzu81/01/8011T89.0 : Calculus in diverticulum of bladderNot SlvbrenscLgqmtjTyodqz35/10/2020 23:41:45 Sensation as if urinary bladder still pdmw084455781Zrpsns43/04/6337X62.14 : Sensation as if bladder still fullNot EskvblrrpLliqxzQctard56/10/2020 23:41:46 Clinical hrdtwtbVmsudy19/21/1571T20.1 : Desire for urinationNot Available LvbukxFkwmdy83/10/2020 23:41:46Clinical bcxxeihStkmvo32/21/3644P03.9 : Retention of urineNot YlicspmkbBmhcptSgzsif25/10/2020 23:41:46Malignant neoplasm of jldyflew676095322Etueip77/27/6479G72 : Malignant tumor of prostateNot Available WwimslJgxfdb82/10/2020 23:41:45Genuine stress wvceqayraipc97665741Feentv 10/10/2017N39.3 : Genuine stress incontinenceNot ShljzcrkiJjnjsoFotpwa33/10/2020 23:41:45Erectile dysfunction following radical htznzrhowrmfd518843588929105 Udhslb1910/10/2017N52.31 : Erectile dysfunction following radical prostatectomyNot KrcfjtorqAycligKquebz22/10/2020 23:41:45History of malignant neoplasm of ekzrzrmw996407351Ypxgkd52/19/3082J24.46 : History of malignant neoplasm of prostateNot SsetfgttfOuvskoIdtxvu66/10/2020 23:41:45Radiation ddtlsvwu36476603 Entmah1202/24/2025LAURA CABRAL MD [address] [place] [address],[address], [address], [place] [address]/27/2024 15:20:06 Problem Notes None recorded. Procedures Surgical History Date Name Laterality Status Provider Name and Address Organization Details Recorded Time 02/24/2025 COMPLEX VISIT completedLAURA CABRAL MD [address] [place] [address],[address], [address], [facility] Raqivop67/17/2025 15:25:1615CystoscopyMalecompleted LAURA CABRAL MD [address] [place] [address],[address], [address], [place] [address]/27/2024 15:26:05043Diagnostic sigmoidoscopy completedNot [facility] Note02/20/2025 20:55:39031Diagnostic colonoscopycompletedNot [facility] Note02/20/2025 20:55:39031Past Data ReviewedcompletedToolya Cabral MD [address] [place] [address],[address], [address], [facility] Mawremy0505/17/2020 13:44:51031Blood Draw/VICE PRESIDENT BIOSTATISTICS/PSA RESULTS completed[facility] Uixavdi9705/10/2020 10:50:4512 Blood Draw/VICE PRESIDENT BIOSTATISTICS/PSA RESULTScompletedNaiad [facility] Tsqjcyr04/04/2020 11:52:5308Blood Draw/VICE PRESIDENT BIOSTATISTICS/PSA RESULTScompletedEmily GilbertorastaethanCuyuna [facility] Medical Center Caeysvx4411/03/2019 11:40:24008/18/2017Laps surg xkrv9bdu rpbic radcompletedNot TqqpckepbPftwgfSxbmxm95/11/2020 12:09:40006/14/2017Biopsy of prostatecompletedNot LjtyuabbkWnnyqpUxnpmr80/11/2020 12:09:40006/14/2017Njx aa&/strd other pn/branch completedNot YnkdmnwrzQnakjrWenzxw73/11/2020 12:09:40006/09/2017Colonoscopy and biopsycompletedNot NbxikxbcqAhciubLfejit84/11/2020 12:09:40005/29/2017Us urine capacity measurecompletedNot OmdzhfcjsHbtnoeIkvurc31/11/2020 12:09:40005/01/2017 Us urine capacity measurecompletedNot ExzyxjyqmIsexnoIybpsm74/11/2020 12:09:40 04/02/2017Us urine capacity measurecompletedNot SaqvricafCyivlkTrlzkg89/11/2020 12:09:39009/25/2016Us urine capacity measurecompletedNot [facility] 08/20/2019 12:09:39104/25/2015Us urine capacity measurecompletedNot Available XvgrxzQmqolr31/11/2020 12:09:Insert bladder cathetercompletedNot GeunyvfziMjgrrqXtznfx93/11/2020 12:09:CystourethroscopycompletedNot QtbuffiqsVimxbcDioqin68/11/2020 12:09:39010/13/2015Electro-uroflowmetry first completedNot RqfzlasioNfnpdrWngabe24/11/2020 12:09:39010/13/2015Intraabdominal pressure testcompletedNot TimfmzgqoCadejpCjyfoo29/11/2020 12:09:40010/13/2015 Cystometrogram w/vp of marketing&upcompletedNot IkzjeolbePblztnIktvvf46/11/2020 12:09:40 10/13/2015Anal/urinary muscle studycompletedNot MajhlihuyKfyxzeZqrabp55/11/2020 12:09:CystourethroscopycompletedNot BramdmxxkHbkzgfVfbgsm38/11/2020 12:09:39008/24/2013Us urine capacity measurecompletedNot [facility] 08/20/2019 12:09:39104/23/2012Us urine capacity measurecompletedNot Available PsvqarEzfuhn24/11/2020 12:09:40008/18/2012Us urine capacity measurecompletedNot IdnlqtqshRivqhzYireij54/11/2020 12:09:40006/09/2012Us urine capacity measure completedNot ZetduzgvkEhcnjaWpxycu41/11/2020 12:09:Prostatic rf thermotxcompletedNot 01/2020 12:09:Insert bladder cathetercompletedNot LqfilkoavNhgjitEplbrm25/11/2020 12:09: Us urine capacity measurecompletedNot ZitjveclpYmzylyYrexoj87/11/2020 12:09:40 12/11/2011Us urine capacity measurecompletedNot WmmagaccnVkwjmaBckmnh08/11/2020 12:09:Us urine capacity measurecompletedNot [facility] 08/20/2019 12:09:Us urine capacity measurecompletedNot Available LhpxzqVvcwzz23/11/2020 12:09:CystourethroscopycompletedNot Available JkdsjiYcnwxe62/11/2020 12:09:Us urine capacity measurecompletedNot XwqgzvubkViebqrQvpiok01/11/2020 12:09:40Removal of prostatecompletedNot [facility] Note02/20/2025 20:55:39Removal of sperm duct(s)completedNot [facility]02/20/2025 20:55:39 Imaging Results None recorded. Procedure Notes None recorded. Medical Equipment None Reported. Allergies Allergen ID Allergen Name Allergen Category Reaction Reaction Severity Criticality Documentation Date Start Date Code Code System Note Provider Name and Address Organization Details Recorded Time 818165 cow milk allergenic extract food,medicati on Not available Not available Not zflbaznxo98/11/9710617833CuTrviEqq NphbkebdmNyoqwuIsiwgy09/11/2020 00:03:58 Medications Name Sig Start Date Stop [...] BEFORE SEXUAL ACTIVITY. MAX 100MG/activeNot AvailableNot AvailableNot Availablewater for irrigation, sterile solutionTake 60 mL by irrigation route as directed, for 1-2 times daily to prevent catheter plugging.5activeNot AvailableNot AvailableNot Availablewarfarin 5 mg tabletTAKE BY MOUTH 5 MG (5 MG X 1) EVERY DAY IN THE EVENING OR DIRECTEDactiveNot AvailableNot AvailableNot Availablewarfarin 1 mg tabletPLEASE SEE ATTACHED FOR DETAILED DIRECTIONS 5193tcvyyjicx7320-17-63 HN: Patient reports no longer takingNot Available Not AvailableNot Availableipratropium bromide 42 mcg (0.06 %) nasal sprayINHALE 2 SPRAYS IN BOTH NOSTRILS THREE TIMES DAILY.activeNot AvailableNot AvailableNot Availablelatanoprost2.5ml of 0.005% 1/dayactiveNot AvailableNot AvailableNot AvailablemultivitaminMULTIVITAMIN 1/dayactiveNot AvailableNot AvailableNot AvailableSterile Saline 0.9 % irrigation solutionTake 60 mL by irrigation route as directed, for 1-2 times daily to prevent catheter plugging.5active Not AvailableNot AvailableNot AvailableShingrix (PF) 50 mcg/0.5 mL intramuscular suspension, kit05/17/2020ompletedNot AvailableNot AvailableNot AvailableFluzone High-Dose 2019-20 (PF) 180 mcg/0.5 mL intramuscular yjzqwjj41/09/2021completed Not AvailableNot AvailableNot AvailableFluzone High-Dose Quad 2019- (PF) 240 mcg/0.7 mL IM syringePHARMACY MHQJVHISWTDG58/09/2021completedNot AvailableNot AvailableNot Available Vitals Date Recorded Body height Body mass index (BMI) Body weight Provider Name and Address Organization Details Last Updated DateTime 05/17/2020 180.34 cm 23.7 kg/m2 06246.7 g Cadence Sood [facility] 05/17/2020 11:55:32 Date Recorded Body height Body mass index (BMI) Body weight Provider Name and Address Organization Details Last Updated DateTime 11/13/2019 180.34 cm 23 kg/m2 43861.74 g Nelia Esposito [facility] 11/13/2019 10:19:40 Date Recorded Body weight Body mass index (BMI) Body height Provider Name and Address Organization Details Last Updated DateTime 02/24/2025 39528.92801 10022 g 24.4 kg/m2 177.8 cm Not Available Health Note 02/24/2025 12:18:45 Social History Question Answer Notes LastModified by Organization D etails LastModified Time Tobacco Smoking Status Never Smoker Not AvailableHealth Note02/20/2025 20:55:39Do You Have An Advance Directive?Yes [email or web address] not xaketwjzi11/13/2025What Is Your Level Of Caffeine Consumption?NoneAPI-685Information not owboxurod50/13/2025How Much Tobacco Do You Chew?NoneAPI-685Information not admqvyrhv48/13/2025Have You Or Anyone In Your House Tested Positive For COVID-19 In The Past 14 Days?Eaefkorjpwm78 Information not /09/2021Have You Or Anyone In Your House Been Exposed To COVID-19 In The Past 14 Days?Giwzuvfcuis96Dqsukuyvtuj not ujytuhpvl31/09/2021 Have You Or Anyone In Your Home Experienced Symptoms Of COVID 19 Such As Fever >100.4, ShortnessOf Breath, Difficulty Breathing, Or A Cough?Wpintgtvizr95 Information not svhamwdls34/09/2021Have You Traveled Outside Of [place] In The Past 30 Days?Orajdahueom70Lqjdawslxdi not wxcwurnhf04/09/2021RaceWhite sbhusal1.63Information not kxljarmnv66/11/2020EthnicityNot / ifltgedwt25Muczmjqdkaf not krirdrnse90/09/2021referred LanguageEnglish taofovsmp01Zwgpzcokrlb not /09/2021Marital StatusMarriedsbhusal1.63 Information not kudzwtbcg79/11/2020Do You Have A Medical Power Of Sfdc Developer?Yes [email or web address] not rvfgncoez30/13/2025What Was The Date Of Your Most Recent Tobacco Screening?02/24/2025PI-685Information not symoahkvm30/13/2025What Is Your Relationship Status?MarriedAPI-685Information not gkracmrzj00/13/2025re You Sexually Active?YesAPI-685Information not /13/2025How Many Days In The Past Year Have You Consumed 5 Or More Drinks?0API-685Information not yquhrjlkz18/13/2025 Sex: Unknown Functional Status Question Answer Note LastModified by Organization D etails LastModified Time Do you use any illicit or recreational drugs? No [email or web address] not fhxrbwiyw35/13/2025What is your level of alcohol consumption?OccasionalAPI-685Information not gmpecrrxt01/13/2025Do you or have you ever used smokeless tobacco?Never used smokeless tobaccoAPI-685Information not hnstewfgq50/13/2025Do you or have you ever used e-cigarettes or vape?Never used electronic cigarettesAPI-685Information not /13/2025 Mental Status None recorded. Family History Relationship Description Onset Age of this Age Resolved Age Notes LastModified by Organization Details LastModified Time Unspecified Relation Family history of diabetes mellitus [email or web address] miwewojnv14/13/2025 20:55:38 Notes:Thyroid problems:Akash nielsen Medical History Condition Response Sexually Transmitted Infection [...] Note02/20/2025 20:55:41influenza, unspecified formulation 5completedNot AvailableHealth Note02/20/2025 20:55:03REIM-YVP-7 (COVID- 19) vaccine, MLDMYQWGABB94/15/2025completedNot AvailableHealth Note02/20/2025 20:55:41zoster live03/11/2019completedNot AvailableHealth Note02/20/2025 20:55:41Novel Gnplxhroj-Y8W1-65, all ktspxkfihldw38/18/2010completedNot IowavotzaSrniosVongte06/17/2025 12:19:22Influenza, high-dose, trivalent, PF 01/12/2016completedNot OffntzzrnKcookcAdtwcs71/17/2025 12:19:22Influenza, high- dose, trivalent, PF12/14/2016completedNot JvlmvrcmaXyvedzTnyrmt60/17/2025 12:19:45Fytp4707/03/2017completedNot YcjqeoqyePxhvwgJppmjt80/17/2025 12:19:22 Influenza, high-dose, trivalent, PF01/03/2018completedNot AvailableAthCritical access hospital 02/24/2025 12:19:22zoster afddgeyjhxs63/14/2019completedNot Available EpjyzeDgouzq71/17/2025 12:19:22zoster wjrjpikozoy66/27/2019completedNot PieivitvuPawxniVevrjl10/17/2025 12:19:22Influenza, high-dose, trivalent, PF 12/05/2018completedNot SypohxjwqOxomcvGgrzsi17/17/2025 12:19:22Influenza, high- dose, quadrivalent, PF12/25/2019completedNot SzcvazofuGgpvtnDmfpyv25/17/2025 12:19:22COVID-19, mRNA, LNP-S, PF, 100 mcg/0.5mL dose or 50 mcg/0.25mL dose 05/06/2020ompletedNot MdojguyyyIkwthzFmgvfw56/17/2025 12:19:22COVID-19, mRNA, LNP-S, PF, 100 mcg/0.5mL dose or 50 mcg/0.25mL dose06/02/2020ompletedNot EjraekpltUpflwpDreccw96/17/2025 12:19:22COVID-19, mRNA, LNP-S, PF, 100 mcg/0.5mL dose or 50 mcg/0.25mL dose01/17/2021ompletedNot YymrbrtkyDbzxcuUtrskd24/17/2025 12:19:22Influenza, adjuvanted, quadrivalent, PF02/21/2021ompletedNot Available IyornrPxznrp22/17/2025 12:19:22COVID-19, mRNA, LNP-S, bivalent, PF, 30 mcg/0.3 mL dose12/22/2021ompletedNot SevplpztyMgncwpVygdxb90/17/2025 12:19:22Influenza, high-dose, quadrivalent, PF12/22/2021ompletedNot AvailableAthCritical access hospital 02/24/2025 12:19:22COVID-19, mRNA, LNP-S, PF, 50 mcg/0.5 mL01/25/2023ompleted Not UqvmddxuoWvqcsqKaayzs62/17/2025 12:19:22Influenza, high-dose, quadrivalent, PF3completedNot AngiakxehEbisruAbbuqq22/17/2025 12:19:22RSV, recombinant, protein subunit RSVpreF, adjuvant reconstituted, 0.5 mL, PF 3completedNot UjlzkfzzuJbmsanZjknlz53/17/2025 12:19:22Influenza, high- dose, trivalent, PF4completedNot AunjryyscDkafdyVzhrzi51/17/2025 12:19:22COVID-19, mRNA, LNP-S, PF, gabi-sucrose, 30 mcg/0.3 mL01/31/2024 completedNot NomkutuqgNvyqklAloajk83/17/2025 12:19:22Pneumococcal conjugate PCV20, polysaccharide GJD555 conjugate, adjuvant, PF04/13/2024ompletedNot VwlhsdncvEcnryuNkbuiz34/17/2025 12:19:22pneumococcal polysaccharide PPV23 05/23/2011completedAilyn Fish [facility] Pbohpyc7612/08/2020 10:22:06 Past Encounters Encounter ID Performer Location Encounter Start Date Encounter Closed Date Diagnosis/Indication Diagnosis SNOMED-CT Code Diagnosis ICD10 Code Diagnosis IMO Codes Diagnosis Note [id number] Ha Cabral MD [address] [address] 11/03/2019 11:09:01 11/03/2019 11:45:58 History of malignant neoplasm of prostate 578498867 Z85.46 [id number] Cabral [facility] [address] 11/13/2019 10:12: 10:55:32Malignant neoplasm of mrtmfihx927705501R86 psa recurrence. t3 disease suggest local recurrence. psa is low. discuss rad tx vs obsewrve. electsto follow. candier rad on consult.[id number] Cabral MD [address] [address] 02/12/2020 11:50:14104/14/2019 11:54:41History of malignant neoplasm of prostate 601774708D80.[id number] [address] 05/10/2020 10:48:1503 10:51:44History of malignant neoplasm of prostate 030435331B36.46 [id number] [address] [address] 05/17/2020 11:28:49005/17/2020 16:26:28Malignant neoplasm of zycphnam219588976J36 psa recurrence. t3 disease PSA doubling time [...] pelvic radiation BX next most appropriate step here.[id number] LAURA SOLOMON [address] [address] 02/24/2025 12:16:561 14:04:56Malignant neoplasm of bapkcreq909518762H92 Radiation cyiusahf84006789X55.40 [id number] Antonio lavpzvmvl146580443K67.0 [id number] Health Concerns Section Related Observation LastModified by Organization Detai ls LastModified Time None Recorded Concern Status LastModified by Organization Details LastModified Time None Recorded Advance Directives Directive Y: Payers Insurance Date Sequence Insurance Name Policy Number Policy Matthews Covered Member ID Matthews Member ID Guarantor Name 02/19/2025 2 [employer] - DOS PRIOR TO Carroll [id number] Laura FarleyUCARE - DOS PRIOR TO 2021 (MEDICAID REPLACEMENT - HMO)Carroll [id number] Michael FrameUCARE - DOS ON OR AFTER 19 (MEDICARE REPLACEMENT/ADVANTAGE - PPO)[id number] Sunita [id number] Laura Frame Notes Date Note Type Note Provider Name and Address Orga nization Details Recorded Time 11/13/2019 text/html ROS as noted in the [facility] prostate cancer. s/p davrp. T3 a pos margin. neg LN. psa 0.13. last january. feels well no complaints. bone pain or weight loss. prior DAVRP. uses [facility] for sexual activity. hesitant , weak stream, nocturia times one. seldom incontinence.Ha Cabral MD [address] [place] [address],[address], [address], [facility] Pafbjvl4111/13/2019 10:44:1503text/htmlROS as noted in the [facility] prostate cancer. s/p davrp. T3 a pos margin. neg LN. . now psa rise to 0.24 we had discussed radiation oncology consult. he was considering. feels well no complaints. bone pain or weight loss. prior DAVRP. uses [facility] for sexual activity. hesitant , weak stream, nocturia times one. seldom incontinence.Ha Cabral MD [address] [place] [address],[address], [address], [facility] Wqisjnl8505/17/2020 13:44:5912text/html Chief complaint:Blood in ydyzw58-keez-ghc male presents for evaluation of gross hematuria. [...] symptoms:Trouble starting to urinate LAURA CABRAL MD [address] [place] [address],[address], [place], [address], [facility] Swfpjtg65/17/2025 15:27:32
--- OUTSIDE RECORDS SUMMARY | 2025-03-09 06:20 | XMS_ITS | Clinical Summary ---
Author Organization [facility] Address [address] [place] [address] Care Team Providers Care Operations Professional Name Role Phone Hector Treadwell MD Primary [...] Overview (09/06/2021): Father, aunt, uncle (paternal) Mixed extmqbkhdznctg07/29/2020Chronic atrial icfiwwczlnfr06/29/2020 Anticoagulation monitoring, INR range 2-305Prostate dqvmog3908/08/2017 Cancer Staging: Clinical: Unsigned Overview (06/27/2020): S/p prostatectomy 2017 - follows with [facility]. PSA raised 2020- On radiation Radiation colitis Encounters DateTypeDepartmentCare QegyEqyyrasnqoa31/17/2025Orders Only [facility] Scanner 1 scan: (1-Ord) [facility], CYSTOSCOPY, Refill [facility] [id number] [place] [address] Hector Treadwell MD Refill Request (Warfarin)02/02/2025Telephone [facility] [address] [facility] [address] [place] [phone] Cardiology, Anw Appointment (/)01/20/2025 11:40 AM CSTOrders Only [facility] [address] [address] <No scans attached>01/20/2025 10:50 AM CSTAncillary Procedure [facility] [address] [address] 01/20/2025 10:15 AM CSTOrders Only [facility] [id number] [place] [address] <No scans attached>01/20/2025 9:45 AM CSTOffice Visit [address] [address] Shannon Pepe PA Hematuria (Blood in urine started 01/14/25, fresh red color at start of stream and then turns brownat the end of urine stream, this morning urine had blood clots, no pain and no odor )01/20/2025Telephone [address] [address] Shannon Pepe PA Gskkafi1201/20/2025nticoagulation (warfarin) [address] [address] Nurse, [facility] Jadopjdsjokgpyr73/12/0850Qrcjsl79/11/2025Nurse Triage [address] [address] Hector Treadwell MD Aewtqavov77/14/2025Telephone [address] [address] Hector Treadwell MD Anticoagulation (review)12/18/2024 11:30 AM CDTOrders Only [address] [address] Lab12/18/2024nticoagulation (warfarin) [address] [address] Nurse, [facility] Wmjombvzjtbcpeo36/10/2025Travelfrom Last 3 Months Immunizations ImmunizationAdministration DatesNext DueAMB INFLUENZA IIV3 (AGE 65+ YRS) PF (Flu Clinic Only)5COVID-19 vaccine (Moderna 100mcg/0.5mL) MD GUICHOV06/02/2020, 05/06/2020Influenza A (H1N1), Zlrjprhjaqy03/18/2010Influenza, High-dose Slyhfzaswuf59/22/2024,12/05/2018,01/03/2018,12/14/2016,01/12/2016Influenza, High-dose Quadrivalent Temdgjlobgb12/17/2023,12/22/2021,12/25/2019Influenza, Inactivated AIIV4 (Age 65+ Years) Preserv Free1Pneumococcal Conj 20- valent (Prevnar 20)04/13/2024Pneumococcal Poly,23-Valent (Pneumovax)05/23/2011 RSV, Recombinant ADJ Reconstituted (Arexvy 120MCG/0.5mL)01/25/2023Tdap07/03/2017 Zoster (Shingrix-RZV, recombinant)12/05/2018,08/22/2018 Family History Medical HistoryRelationNameCommentsCoronary artery diseaseFatherdied 59Relation NameStatusCommentsFather Social History Tobacco UseTypesPacks/DayYears UsedDateSmoking Tobacco: NeverSmokeless Tobacco: NeverAlcohol UseStandard Drinks/WeekCommentsYes4 (1 standard drink = 0.6 oz pure alcohol)4/weekPHQ-2AnswerDate RecordedPHQ-2 TOTAL EGICW235Social ConnectionsAnswerDate RecordedDo you often feel lonely or isolated from those around you?lcohol UseAnswerDate RecordedHow often do you have a drink containing alcohol?How many drinks containing alcohol do you have on a typical day when you are drinking?How often do you have five or more drinks on one occasion?Financial Resource StrainAnswer Date RecordedDifficulty of Paying Living Pwcimmiw179/03/2025Difficulty of Paying Living ExpensesNot on file04/13/2024Food InsecurityAnswerDate [...] InformationValueDate RecordedSex Assigned at BirthNot on fileLegal FfkUkpw9903/24/2012 8:08 AM CARDIAC EXERCISE PHYSIOLOGIST Gender IdentityNot on fileSexual OrientationNot on file Last Filed Vital Signs Vital SignReadingTime TakenCommentsBlood Rszwfqmv439/8801/20/2025 9:43 AM CARDIAC EXERCISE PHYSIOLOGIST Wfhjq725801/20/2025 9:43 AM LNAEdhfvlfhzft74.7 ??C (98.1 ??F)01/20/2025 9:43 AM CSTRespiratory Phwj402508/24/2024 8:13 AM CDTOxygen Gtzbjfcjkq249%01/20/2025 9:43 AM CSTInhaled Oxygen Concentration--Jrqhqp41.9 kg (174 lb)01/20/2025 9:43 AM CARDIAC EXERCISE PHYSIOLOGIST Jvzirq043.3 cm (5' 9)01/20/2025 9:43 AM CSTBody Mass Index25.7103/22/2024 9:43 AM CARDIAC EXERCISE PHYSIOLOGIST Plan of Treatment DateTypeDepartmentCare Team (Latest Contact Info)Shllgxhuaya38/06/2026 10:15 AM CSTOrders Only [facility] [address] [place] [address] 04/01/2025 9:[address] [facility] [address] [facility] [address] [place] [address] Daron, Maciej Salcedo MD [address] [facility] [address] [place] [address] Health MaintenanceDue DateLast DoneCommentsDepression screening for age 12+ , 03/21/2023, 03/21/2023, Additional history existsMedicare Wellness for age 65+/05/2024, 03/20/2023, 06/28/2021, Additional history existsCOVID-19 vaccine series (8 - Moderna risk 2024- season) , 01/31/2024, 01/25/2023, Additional history existsBMI (ht and wt on same day) for age 18+, 04/13/2024, 03/20/2023, Additional history existsTetanus xeysetp24/25/79043907/03/2017Zoster (shingles) series for age 50+Zzcrajflx12/27/2019, 08/22/2018RSV vaccine for adults or obslqpavfIvkaptexh35/17/2023Hepatitis C screening for age 18-79Completed 04/13/2024Pneumococcal series for age 50+Tmaadegnj49/03/2025, 05/23/2011 Influenza BtglafjFbojmtkre52/24/2025, 01/31/2024, 02/21/2021, Additional history existsHepatitis B series for 19+Aged OutNo longer eligible based on patient's age to complete this topic Procedures Procedure NamePriorityDate/TimeAssociated DiagnosisCommentsSCAN- OPERATIVE/PROCEDURE CJQSMK6702/24/2025 12:00 AM CARDIAC EXERCISE PHYSIOLOGIST CREATININE,JJQVJCxerrxf22/12/2025 10:53 AM CARDIAC EXERCISE PHYSIOLOGIST Observation or evaluation for suspected condition CT ABDOMEN PELVIS WSTAT103/22/2024 10:50 AM CARDIAC EXERCISE PHYSIOLOGIST Prostate cancer (HC) Painless hematuria INR,AFLFVtbemmt89/12/2025 10:08 AM CARDIAC EXERCISE PHYSIOLOGIST Chronic atrial fibrillation (HC) Anticoagulation monitoring, INR range 2-3 URINALYSIS SBXMLXFDQUEYjyenkd01/12/2025 10:06 AM CARDIAC EXERCISE PHYSIOLOGIST Painless hematuria URINE ATGTGFQTacdqki95/12/2025 10:06 AM CARDIAC EXERCISE PHYSIOLOGIST Painless hematuria INR,ZGYZInzzptg02/10/2025 11:14 AM CDT Chronic atrial fibrillation (HC) Anticoagulation monitoring, INR range 2-3 ANTI BJDVjppwia11/03/2025 3:08 PM CARDIAC EXERCISE PHYSIOLOGIST Encounter for hepatitis C screening test for low risk patient from Last 3 Months or Most Recently Relevant to Health Maintenance Results * SCAN-OPERATIVE/PROCEDURE REPORT (02/24/2025 12:00 AM CARDIAC EXERCISE PHYSIOLOGIST) Narrative Authorizing ProviderResult TypeResult StatusScannerOTHERFinal Result * POCT Creatinine (01/20/2025 10:53 AM CARDIAC EXERCISE PHYSIOLOGIST)ComponentValueRef RangeTest Method Analysis TimePerformed AtPathologist SignaturePOCT,CREATININE, ISTAT1.20.6 - 1.3 mg/dL01/20/2025 11:04 AM [facility] Specimen (Source)Anatomical Location / LateralityCollection Method / Volume Collection TimeReceived TimeBloodBLOOD SPECIMEN / UnknownQuest Collect / Uldxpqq4701/20/2025 10:53 AM CST01/20/2025 10:53 AM CARDIAC EXERCISE PHYSIOLOGIST Narrative Authorizing ProviderResult TypeResult StatusBrlisa Pepe PACHEMISTRYFinal ResultPerforming OrganizationAddressCity/State/ZIP CodePhone Number [facility] [address] [place] [address], [facility] [address] [place] [address], [place] * CT ABDOMEN PELVIS W (01/20/2025 10:50 AM CARDIAC EXERCISE PHYSIOLOGIST)Anatomical RegionLaterality ModalityAbdomen, Pelvis, AORTA, LIVER, SPLEENComputed TomographySpecimen (Source)Anatomical Location / LateralityCollection Method / VolumeCollection TimeReceived Time01/20/2025 11:24 AM CARDIAC EXERCISE PHYSIOLOGIST Impressions 01/20/2025 11:24 AM CARDIAC EXERCISE PHYSIOLOGIST 1. Significantly enlarged heart. This is multichamber [...] AM (Electronically Signed) Narrative 01/20/2025 11:24 AM CARDIAC EXERCISE PHYSIOLOGIST For Patients: As a result of the [...] For Patients: As a result of the Century Cures Act, medical imagingexams and procedure [...] 11:24:44 AM (Electronically Signed) Authorizing ProviderResult TypeResult StatusBrlisa Pepe PACTFinal Result * (ABNORMAL) INR - POCT [[id number]] - Standing Order (01/20/2025 10:08 AM CARDIAC EXERCISE PHYSIOLOGIST) Only the most recent of2 resultswithin the time period is included. ComponentValueRef RangeTest MethodAnalysis TimePerformed AtPathologist Signature INR2.3(H)ratio01/20/2025 10:18 AM [facility]Comment: INRs >2.9 may be falsely elevated in [...] PROTHROMBIN TIMEP27.9(H)10.5 - 13.1 sec01/20/2025 10:18 AM CSTDZILTH-NA-O-DITH-HLE HEALTH CENTERComment: Point of care fingerstick Prothrombin Time/INR results may vary from venous Prothrombin Time/INR methodologies. Any results exhibiting inconsistency with the patient's clinical status should be repeated using a venous Prothrombin Time/INR method. Specimen (Source)Anatomical Location / LateralityCollection Method / Volume Collection TimeReceived TimeBloodBLOOD SPECIMEN / UnknownQuest Collect / Unknown 01/20/2025 10:08 AM CST01/20/2025 10:08 AM CARDIAC EXERCISE PHYSIOLOGIST Narrative Authorizing ProviderResult TypeResult StatusLouis Jessee Treadwell MDLABORATORY Final ResultPerforming OrganizationAddressCity/State/ZIP CodePhone Number [facility] [address] [place] [address], [address] [address] * (ABNORMAL) URINALYSIS MICROSCOPIC (01/20/2025 10:06 AM CARDIAC EXERCISE PHYSIOLOGIST)ComponentValueRef RangeTest MethodAnalysis TimePerformed AtPathologist SignatureWBC UA0-5< OR [...] Unknown 01/20/2025 10:06 AM CST01/20/2025 11:02 AM CARDIAC EXERCISE PHYSIOLOGIST Narrative Authorizing ProviderResult TypeResult StatusShannon Pepe PAURINEFinal Result Performing OrganizationAddHaven Behavioral Hospital of Philadelphiaty/State/ZIP CodePhone Number [place] [id number] [place] [address], * URINE CULTURE (01/20/2025 10:06 AM CARDIAC EXERCISE PHYSIOLOGIST)ComponentValueRef RangeTest Method Analysis TimePerformed AtPathologist SignatureCULTURE, URINE, ROUTINESEE NOTE 01/21/2025 10:01 PM CSTQUEST DIAGNOSTICSComment: ??CULTURE, URINE, ROUTINE ?Micro Number: ?[id number] ??Test Status: ? Final ??Specimen Source: ?? Urine, clean catch ??Specimen Quality: ??Adequate ??Result: ?No Growth Specimen (Source)Anatomical Location / LateralityCollection Method / Volume Collection TimeReceived TimeUrineURINE SPECIMEN / UnknownNon-Blood / Unknown 01/20/2025 10:06 AM CST01/20/2025 10:46 AM CARDIAC EXERCISE PHYSIOLOGIST Narrative Authorizing ProviderResult TypeResult StatusShannon Pepe PAMICROBIOLOGYFinal ResultPerforming OrganizationAddHospital of the University of Pennsylvania/[facility] CodePhone Number [place] [address] [address], * ANTI HCV (04/13/2024 3:08 PM CARDIAC EXERCISE PHYSIOLOGIST)ComponentValueRef RangeTest MethodAnalysis TimePerformed AtPathologist SignatureHEPATITIS C ANTIBODYNON-REACTIVE NON-REACTIVEUniversity BeyondNorth Shore HealtheComment: HCV antibody was non-reactive. There is no laboratory evidence of HCV infection. In most cases, no further action is required. However, if recent HCV exposure is suspected, a test for HCV RNA (test code 11456) is suggested. For additional information please refer to http://education.Adapt/faq/GQZ52r4 (This link is being provided for informational/ educational purposes only.) Specimen (Source)Anatomical Location / LateralityCollection Method / Volume Collection TimeReceived TimeBloodBLOOD SPECIMEN / Sglscyf6004/13/2024 3:08 PM CARDIAC EXERCISE PHYSIOLOGIST 04/13/2024 3:09 PM CARDIAC EXERCISE PHYSIOLOGIST Narrative Authorizing ProviderResult TypeResult StatusLouis Jessee Donatouire MDSEND OUTS Final ResultPerforming OrganizationAddressCity/State/ZIP CodePhone Number [facility] [address] [place] [address], [facility] [address] [place] [address] from Last 3 Months or Most Recently Relevant to Health Maintenance Insurance * Guarantor: Carroll Farley TypeRelation to PatientDate of BirthPhone Billing AddressPersonal/DfstvyWiot1945 [facility] [place] [address] Advance Directives TypeDate RecordedPatient RepresentativeExplanationHealthcare Directive09/07/2015 6:47 AM * Full Code (Latest Code Status on File) Date ActivatedDate InactivatedComments06/13/2022 11:39 AM06/13/2022 3:31 PMQuestion AnswerCommentsCode Status Discussion:* Reviewed Preferences * Full Code Date ActivatedDate InactivatedComments08/08/2017 9:17 AM08/09/2017 3:02 PM * Full Code Date ActivatedDate InactivatedComments09/07/2015 7:09 AM09/07/2015 3:10 PM Care Teams Team MemberRelationshipSpecialtyStart [place] [address] [place] [address] [facility] - [facility]
--- OUTSIDE RECORDS SUMMARY | 2025-03-09 06:20 | XMS_ITS | Continuity of Care Document ---
Author Organization [facility] gy, [facility] Address [address] [address] Care Team Providers Care Class B Driver Name Role Phone NIDHI SAHU Primary Care [...] last office visit note, PSA, radiation oncology jgcofhwzttbce41Ufa sebrcmpng16/17/2025 15:26:30 Plan of Treatment Reminders Order DateSubmit DateProviderLast Modified ByOrganization DetailsLast Modified TimeDetailsAppointmentsESTABLISHED 10:00JOSE JUAN CABRAL MDNot availableNot availableNot availableLabNone recorded.Referralundersea & hyperbaric medicine referral - Please call the pt to setup a consult. 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 Patient TargetsNo targets recorded. Patient Instructions Encounter Date Encounter Id Patient Instructions Last Modified By Organization Details Last Modified Time 02/24/2025 [id number] 79-year-old male presents for evaluation of gross [...] to emergency department if clot retention recurs. gwbdkhnr16Vku arvxetzvp88/17/2025 15:27:22 Reason for Referral Undersea & Hyperbaric [...] + pelvis, w/ con trast No observation recorded.gpefg5Vmf Poqhvxiyn28/15/2025 15:53:43104/28/2024 02/25/2025T ABD wo&W & pelv wo&W (no oral cont)No observation recorded.SAVANA [facility] [place] [address] [place], [address], 105/04/2024 14:49:50 Result Notes None recorded. Problems Name Problem SNOMED Code Status Onset Date Resolution Date Notes Provider Name and Address Organization Details Recorded Time Neurogenic urinary bladder 769677753 Active 5 N31.2 : Neurogenic bladderNot OzzdvbculMlamsgOnurof63/10/2020 23:41:45Abnormal findings on microbiological examination of [id number]/28/0978N40.7 : Abnormal findings on microbiological examination of urineNot Available DhxdioUkjvdb43/10/2020 23:41:45Prostate specific antigen above reference range [id number]/28/6664H30.2 : Raised prostate specific antigenNot Available SjgjjhGhpjpg69/10/2020 23:41:45Frank mdhaldecy915060157Exvrry73/24/3355J24.0 : Antonio hematuriaMICYUE CABRAL MD [address] [facility] [address], [place], [address] Qksrkon91/17/2025 15:21:00Clinical yjlzqyvYwkcdx09/01/6787K14.0 : Calculus in diverticulum of bladderNot HtuhohbopWptwvbFecwzm45/10/2020 23:41:45 Sensation as if urinary bladder still wzfm117034985Bqnxwv65/04/4797D65.14 : Sensation as if bladder still fullNot VksannxcpEzxaqmYhzplf99/10/2020 23:41:46 Clinical ojvywzaWghrgj05/21/1747X28.1 : Desire for urinationNot Available VtkwixBslnmb24/10/2020 23:41:46Clinical yykqipfZqtiji20/21/8851Y03.9 : Retention of urineNot VihszydcwLhguzjCzmzqj27/10/2020 23:41:46Malignant neoplasm of ywybgqbz657247076Xabgzo88/27/9049I19 : Malignant tumor of prostateNot Available OuybflItczhr86/10/2020 23:41:45Genuine stress dzfxptwduthy72979300Evelpc 10/10/2017N39.3 : Genuine stress incontinenceNot OzmdttxvnGjoccfOvwwqu20/10/2020 23:41:45Erectile dysfunction following radical ijlrjnkykedrk857568467288428 Kqvybj5410/10/2017N52.31 : Erectile dysfunction following radical prostatectomyNot PlvvbasapNrdaycHvrffd94/10/2020 23:41:45History of malignant neoplasm of untpnnuv598860556Ncnwdc06/19/5994X01.46 : History of malignant neoplasm of prostateNot MxdfiqygwPiybwnDwyxld49/10/2020 23:41:45Radiation bvurltzp99307364 Emmixc0402/24/2025LAURA CABRAL MD [address] [place] [address],[address], [place], [address], [place] 8155[address]/27/2024 15:20:06 Problem Notes None recorded. Procedures Surgical History Date Name Laterality Status Provider Name and Address Organization Details Recorded Time 02/24/2025 COMPLEX VISIT completedLAURA CABRAL MD [address] [place] [address],[facility] [address], [address], [place] [address]/27/2024 15:25:1615CystoscopyMalecompleted LAURA CABRAL MD [address] [place] [address],[address], [place], [address], [place] [address]/27/2024 15:26:05043Diagnostic sigmoidoscopy completedNot [facility] Note02/20/2025 20:55:39031Diagnostic colonoscopycompletedNot [facility] Note02/20/2025 20:55:39031Past Data ReviewedcompletedToolya Cabral MD [address] [place] [address],[address], [place], [address], [facility] Oqhrqzr2805/17/2020 13:44:51031Blood Draw/MEDICAL SCHEDULER/PSA RESULTS completedSt[facility] Rzsoztw0505/10/2020 10:50:4512 Blood Draw/MEDICAL SCHEDULER/PSA RESULTScompletedNaiad HollyRidgeview Medical Center Wplrfef79/04/2020 11:52:5308Blood Draw/MEDICAL SCHEDULER/PSA RESULTScompletedEmily GilbertorastaethanRidgeview Medical Center Vsrgfhw1211/03/2019 11:40:2406Laps surg zcro4rnh rpbic radcompletedNot SdctgmcubRkbvtbFbchyr44/11/2020 12:09:4004Biopsy of prostatecompletedNot KqyfxwykcFofhwpYzrgdg25/11/2020 12:09:4004/06/2018Njx aa&/strd other pn/branch completedNot GhdixjlevQzboftKgksgt34/11/2020 12:09:40006/09/2017Colonoscopy and biopsycompletedNot AgovfstghLkvuqdYlrkdy83/11/2020 12:09:40005/29/2017Us urine capacity measurecompletedNot CgdsnezqfYzdugqNtjdgw78/11/2020 12:09:40005/01/2017 Us urine capacity measurecompletedNot IfzivyhngEklqebZivpxf16/11/2020 12:09:40 04/02/2017Us urine capacity measurecompletedNot CndxmaqqxMikloeLzqnlf08/11/2020 12:09:39009/25/2016Us urine capacity measurecompletedNot [facility] 08/20/2019 12:09:39104/25/2015Us urine capacity measurecompletedNot Available EgyxauPxkvoz92/11/2020 12:09:Insert bladder cathetercompletedNot SqjwhwwueJnusysKiuvmo39/11/2020 12:09:CystourethroscopycompletedNot XpizptiemHqxcbyApfwlv94/11/2020 12:09:39010/13/2015Electro-uroflowmetry first completedNot XsjxdheatRgaayyPvpidv74/11/2020 12:09:39010/13/2015Intraabdominal pressure testcompletedNot DnoezgjqgEyrcdzHxsspp13/11/2020 12:09:40010/13/2015 Cystometrogram w/global vp creative + content marketing&upcompletedNot XpiqkntuvKjcfgqQmnqoq46/11/2020 12:09:40 10/13/2015Anal/urinary muscle studycompletedNot AztqaoikrSulgzjFmvmog83/11/2020 12:09:CystourethroscopycompletedNot XzddiikmoJfpdubUyjvgh23/11/2020 12:09:39008/24/2013Us urine capacity measurecompletedNot [facility] 08/20/2019 12:09:39104/23/2012Us urine capacity measurecompletedNot 08/20/2019 12:09:40008/18/2012Us urine capacity measurecompletedNot TsglnvqnjPxlucsZangpw90/11/2020 12:09:40006/09/2012Us urine capacity measure completedNot AhsvokjdiEwrbnzRqpofe14/11/2020 12:09:Prostatic rf thermotxcompletedNot DjqeoxzqgOvbegvEehhox27/11/2020 12:09:Insert bladder cathetercompletedNot DszysiogfKzwcbtCnupfe43/11/2020 12:09: Us urine capacity measurecompletedNot RqnrnrtakFtcevgOnrojq33/11/2020 12:09:40 12/11/2011Us urine capacity measurecompletedNot VqfwhcdpnHwahzmKjkyok25/11/2020 12:09:Us urine capacity measurecompletedNot [facility] 08/20/2019 12:09:Us urine capacity measurecompletedNot Available JbyzpuCpudzj65/11/2020 12:09:CystourethroscopycompletedNot Available ZyvejnBhspsj39/11/2020 12:09:Us urine capacity measurecompletedNot ZctcxgnbbMkkxupFbdimq19/11/2020 12:09:40Removal of prostatecompletedNot [facility]02/20/2025 20:55:39Removal of sperm duct(s)completedNot [facility]02/20/2025 20:55:39 Imaging Results None recorded. Procedure Notes None recorded. Medical Equipment None Reported. Allergies Allergen ID Allergen Name Allergen Category Reaction Reaction Severity Criticality Documentation Date Start Date Code Code System Note Provider Name and Address Organization Details Recorded Time 115639 cow milk allergenic extract food,medicati on Not available Not available Not qxuryammh73/11/5425800693ReEhpfVgf ThawqwrdgJadbwtEvffbl48/11/2020 00:03:58 Medications Name Sig Start Date Stop [...] mg tabletPLEASE SEE ATTACHED FOR DETAILED DIRECTIONS 02/24/20256391rewxdppsd0706-41-95 HN: Patient reports no longer takingNot Available [...] High-Dose 2019-20 (PF) 180 mcg/0.5 mL intramuscular uaxfgfm0105/17/2020ompleted Not AvailableNot AvailableNot AvailableFluzone High-Dose Quad 2019- (PF) 240 mcg/0.7 mL IM syringePHARMACY IRNQCDAIQATQ80/09/2021ompletedNot AvailableNot AvailableNot Available Vitals Date Recorded Body weight Body mass index (BMI) Body height Provider Name and Address Organization Details Last Updated DateTime 02/24/2025 82348.24116 09312 g 24.4 kg/m2 177.8 cm Not Available Health Note 02/24/2025 12:18:45 Social History Question Answer Notes LastModified by Organization D etails LastModified Time Tobacco Smoking Status Never Smoker Not AvailableHealth Note02/20/2025 20:55:39Do You Have An Advance Directive?Yes [email or web address] not hapkjzyqr10/13/2025What Is Your Level Of Caffeine Consumption?NoneAPI-[email or web address] not /13/2025How Much Tobacco Do You Chew?NoneAPI-685Information not yhnfufyue65/13/2025Have You Or Anyone In Your House Tested Positive For COVID-19 In The Past 14 Days?Pvucyxwugsn96 Information not vywxxvllb52/09/2021Have You Or Anyone In Your House Been Exposed To COVID-19 In The Past 14 Days?Zzvjckxqyms92Koahknrwyno not sgvxfnapk95/09/2021 Have You Or Anyone In Your Home Experienced Symptoms Of COVID 19 Such As Fever >100.4, ShortnessOf Breath, Difficulty Breathing, Or A Cough?Tdwjqpdyxvd56 Information not xordwnpwd64/09/2021Have You Traveled Outside Of [place] In The Past 30 Days?Mqvxmollqsm06Xlltxkcpxya not jnmzcddvo30/09/2021RaceWhite sbhusal1.63Information not mrkmrklcu05/11/2020EthnicityNot / pwmweicrt98Bwtbgucyxei not vtarzwlyk25/09/2021referred LanguageEnglish xctfpdmur56Eqvygrqcurk not ipkawhfhg29/09/2021Marital StatusMarriedsbhusal1.63 Information not upunxntwc08/11/2020Do You Have A Medical Power Of Ingot Stripper?Yes [email or web address] not afojrqyxd60/13/2025What Was The Date Of Your Most Recent Tobacco Screening?02/24/2025PI-685Information not uxqdfngav01/13/2025What Is Your Relationship Status?MarriedAPI-685Information not borntewgq08/13/2025re You Sexually Active?YesAPI-685Information not kfilopmhy39/13/2025How Many Days In The Past Year Have You Consumed 5 Or More Drinks?0API-685Information not czdfdlmfe28/13/2025 Sex: Unknown Functional Status Question Answer Note LastModified by Organization D etails LastModified Time Do you use any illicit or recreational drugs? No [email or web address] not /13/2025What is your level of alcohol consumption?OccasionalAPI-685Information not wpvutheso99/13/2025Do you or have you ever used smokeless tobacco?Never used smokeless tobaccoAPI-685Information not vaaouefua07/13/2025Do you or have you ever used e-cigarettes or vape?Never used electronic [email or web address] not ggxzhaccy26/13/2025 Mental Status None recorded. Family History Relationship Description Onset Age of this Age Resolved Age Notes LastModified by Organization Details LastModified Time Unspecified Relation Family history of diabetes mellitus [email or web address] /13/2025 20:55:38 Notes:Thyroid problems:Akash nielsen Medical History Condition Response Diabetes N Sexually Transmitted Infection N Other N Bleeding Disorder N High Blood Pressure N Kidney Stones Y Cancer N Lung Disease N Depression N High Cholesterol Y GERD/Acid Reflux N Heart Disease Y Immunizations Vaccine Type Date Status Note Provider Nam e and Address Organization Details Recorded Time pneumococcal, unspecified formulation 03/11/2019 com pleted Not AvailableHealth Note02/20/2025 20:55:41influenza, unspecified formulation 5completedNot AvailableHealth Note02/20/2025 20:55:81BFSV-UZO-5 (COVID- 19) vaccine, VWFUCOHMNOP41/15/2025completedNot AvailableHealth Note02/20/2025 20:55:41zoster live03/11/2019completedNot AvailableHealth Note02/20/2025 20:55:41Novel Evsjxdfye-T4T5-10, all dsefckhfsxop75/18/2010completedNot ZmjsyrelwMarudqQyeyof58/17/2025 12:19:22Influenza, high-dose, trivalent, PF 01/12/2016completedNot JntociosxRebfjjSfombl52/17/2025 12:19:22Influenza, high- dose, trivalent, PF12/14/2016completedNot LsacohdvoYptpudMcdtta42/17/2025 12:19:95Uokj19completedNot EbxyigknpHklkltVwtaws30/17/2025 12:19:22 Influenza, high-dose, trivalent, PF01/03/2018completedNot [facility] 02/24/2025 12:19:22zoster sysdqnrgutc79/14/2019completedNot Available XhbzwlQyhzir50/17/2025 12:19:22zoster jfaobwjpgmz47/27/2019completedNot JbxymhmmqCwddbaDhvflo70/17/2025 12:19:22Influenza, high-dose, trivalent, PF 12/05/2018completedNot ZazwdokxcPcnedzHeokcz68/17/2025 12:19:22Influenza, high- dose, quadrivalent, PF12/25/2019completedNot EumixqorwUucipaMeurfw83/17/2025 12:19:22COVID-19, mRNA, LNP-S, PF, 100 mcg/0.5mL dose or 50 mcg/0.25mL dose 05/06/2020ompletedNot FiqvsaaloSmskpsZelzrk13/17/2025 12:19:22COVID-19, mRNA, LNP-S, PF, 100 mcg/0.5mL dose or 50 mcg/0.25mL dose06/02/2020ompletedNot NqoerpzwePskhmqQgmzbh94/17/2025 12:19:22COVID-19, mRNA, LNP-S, PF, 100 mcg/0.5mL dose or 50 mcg/0.25mL dose01/17/2021ompletedNot ZqvklnimsYntazbRtaxvt37/17/2025 12:19:22Influenza, adjuvanted, quadrivalent, PF02/21/2021ompletedNot Available KmbdvkDvtzhg02/17/2025 12:19:22COVID-19, mRNA, LNP-S, bivalent, PF, 30 mcg/0.3 mL dose12/22/2021ompletedNot UvmhvyrxlMhpnikIfziij62/17/2025 12:19:22Influenza, high-dose, quadrivalent, PF12/22/2021ompletedNot AvailableAth[facility] 02/24/2025 12:19:22COVID-19, mRNA, LNP-S, PF, 50 mcg/0.5 mL01/25/2023ompleted Not CquohbwsiUnctwdPwrscw50/17/2025 12:19:22Influenza, high-dose, quadrivalent, PF01/25/2023ompletedNot GlgumpumpYzyseoByvcbe18/17/2025 12:19:22RSV, recombinant, protein subunit RSVpreF, adjuvant reconstituted, 0.5 mL, PF 01/25/2023ompletedNot IuvdwgwebMnvqryFmjsyn04/17/2025 12:19:22Influenza, high- dose, trivalent, PF01/31/2024ompletedNot CpkhuvqrfVryscrZussyw06/17/2025 12:19:22COVID-19, mRNA, LNP-S, PF, gabi-sucrose, 30 mcg/0.3 mL01/31/2024 completedNot OdheouumfXennpvAmwcik35/17/2025 12:19:22Pneumococcal conjugate PCV20, polysaccharide VEX972 conjugate, adjuvant, PF04/13/2024ompletedNot KavjgwujgLpaayrNeorys40/17/2025 12:19:22pneumococcal polysaccharide PPV23 05/23/2011completedAilyn Fish [facility] Ricbair2212/08/2020 10:22:06 Past Encounters Encounter ID Performer Location Encounter Start Date Encounter Closed Date Diagnosis/Indication Diagnosis SNOMED-CT Code Diagnosis ICD10 Code Diagnosis IMO Codes Diagnosis Note [id number] LAURA CABRAL MD [address] [address] 02/24/2025 12:16:56 03/08/2025 14:04:56 Malignant neoplasm of prostate 427700122 C61 Radiation ymzdbcvm52106269A60.40 [id number] Antonio szcwukuwh683573675W80.0 [id number] Health Concerns Section Related Observation LastModified by Organization Detai ls LastModified Time None Recorded Concern Status LastModified by Organization Details LastModified Time None Recorded Payers Encounter Date Sequence Insurance Name Policy Number Policy Matthews Covered Member ID Matthews Member ID Guarantor Name 02/24/2025 1 [employer] - DOS ON O R AFTER 19 (MEDICARE REPLACEMENT/ADVANTAGE - PPO) [id number] Carroll Farley [id number] Carroll Farley Notes Date Note Type Note Provider Name and Address Orga nization Details Recorded Time 02/24/2025 text/html Chief complaint:Blood in -fkqj-vuy male presents for evaluation of gross hematuria. [...] starting to urinate LAURA CABRAL MD [address] [facility],[address], [place], [address], [facility] Hmcynul12/17/2025 15:27:32
[2025-03-09 06:54] LABS: Hematocrit* 27.2 % (37.0-53.0); Hemoglobin* 9.0 gm/dL (13.5-17.5); Immature Granulocytes Pct Auto 0.3 %; Mean Corpuscular HGB Conc 33 gm/dL (32-36); Mean Corpuscular Hemoglobin 35 pg (26-34); Mean Corpuscular Volume 106 fL (80-100); RDW Coefficient of Variation % 14.2 % (11.5-15.5); Red Blood Count* 2.56 m/uL (4.30-5.90); White Blood Count* 3.32 K/uL (4.50-11.00)
[2025-03-09 06:57] LABS: Immature Granulocytes Abs Auto 0.00 K/uL (0.00-0.30); Lymphocytes Absolute Auto 0.70 K/uL (0.90-2.90); Slide Review Reflex No
--- NOTE | 2025-03-09 06:59 | ED.GENADULT ---
HPI - General Adult General Chief complaint: Urogenital Problems, Male <Carolyn Sandoval MD - Last Filed: 03/10/25 00:29> Stated complaint: cannot flush bladder <Carolyn Sandoval MD - Last Filed: 03/10/25 00:29> Time Seen by Provider: 03/09/25 06:42 <Carolyn Sandoval MD - Last Filed: 03/10/25 00:29> Source: patient <Carolyn Sandoval MD - Last Filed: 03/10/25 00:29> Mode of arrival: ambulatory <Carolyn Sandoval MD - Last Filed: 03/10/25 00:29> Limitations: no limitations <Carolyn Sandoval MD - Last Filed: 03/10/25 00:29> History of Present Illness HPI narrative: 80-year-old male presents to the emergency department with clogged catheter and lots of blood clots. He is anticoagulated on Coumadin because of history of AFib. Last saw his urologist 2 weeks ago. 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 Patient had radiation from recurrence of prostate cancer 3 years ago. 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 Patient reports that he does get frequent clotting of the urinary catheter. I do review a note from our ED just a few weeks ago with similar complaint. Patient actually wakes to flush his catheter every 2 hours. He flushed normally at 2:00 a.m.. When he got up at 4:00 a.m. to flush the catheter again, the 1st syringe had lots of clots, the 2nd syringe would not pull at all. He does not feel like the bladder is super distended but is not getting any drainage out and cannot flush the catheter, has continued to try at home prior to ED arrival. He continues to take his Coumadin, has not had an INR checked in the last few days. He denies any dizziness, lightheadedness, shortness of breath or chest pain. He does feel like his ankles have been gradually getting more swollen over the last few months but nothing major. At patient's last ED visit, we were successful getting the catheter to flush with continuous bladder irrigation. Those notes are reviewed, labs reviewed as well. Patient denies any recent changes to his medications or other updates besides the urology visit. Past medical history most notable for atrial fibrillation, anticoagulated on Coumadin. History of previously treated prostate cancer, in remission. He also takes atorvastatin. No known drug allergies. ROS is notable for the urinary symptoms as above, otherwise denies times 12 systems. <Carolyn Sandoval MD - Last Filed: 03/10/25 00:29> Related Data Home medications: Home Medications ?Medication ?Instructions ?Recorded ?Confirmed atorvastatin .Route 08/21/23 02/02/25 warfarin .Route 08/21/23 02/02/25 <Carolyn Sandoval MD - Last Filed: 03/10/25 00:29> Allergies/adverse reactions: Allergies Allergy/AdvReac Type Severity Reaction Status Date / Time No Known Drug Allergies Allergy Verified 02/24/25 22:57 <Carolyn Sandoval MD - Last Filed: 03/10/25 00:29> [facility] Medical History: Medical History Retinal detachment, left ?H33.22 - Serous retinal detachment, left eye (ICD-10) Primary osteoarthritis of left knee ?M17.12 - Unilateral primary osteoarthritis, left knee (ICD-10) Prostate cancer ?C61 - Malignant neoplasm of prostate (ICD-10) 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 (ICD-10) Mixed hyperlipidemia ?E78.2 - Mixed hyperlipidemia (ICD-10) BCC (basal cell carcinoma), ear ?C44.211 - Basal cell carcinoma of skin of unspecified ear and external auricular canal (ICD-10) Anticoagulation monitoring, INR range 2-3 ?Z79.01 - [employer] (current) use of anticoagulants (ICD-10) Chronic atrial fibrillation ?I48.20 - Chronic atrial fibrillation, unspecified (ICD-10) <Carolyn Sandoval MD - Last Filed: 03/10/25 00:29> Surgical History: Surgical History History of prostatectomy (08/08/17) ?Z90.79 - Acquired absence of other genital organ(s) (ICD-10) History of cystoscopy (09/07/15) ?Z98.890 - Other specified postprocedural states (ICD-10) <Carolyn Sandoval MD - Last Filed: 03/10/25 00:29> Family History: Family History Father Coronary artery disease <Carolyn Sandoval MD - Last Filed: 03/10/25 00:29> Social History: Social History Smoking Status: Never smoker Do you use any of these nicotine containing products: None Second hand tobacco smoke exposure: No How often do you have a drink containing alcohol: never AUDIT-C Alcohol total score: 0 Non-prescribed substance use: denies use <Carolyn Sandoval MD - Last Filed: 03/10/25 00:29> Exam Const: Vital Signs, click to edit/add: Vital Signs - 24 hr 03/09/25 06:25 03/09/25 07:27 03/09/25 08:02 Temperature 98 F Pulse Rate 74 Pulse Rate [Pulse Oximeter] 83 74 Respiratory Rate 16 16 Blood Pressure 138/94 H Blood Pressure [Ri ght Upper Arm] 134/110 H 128/90 H Pulse Oximetry 100 98 98 Oxygen Delivery Me thod Room Air Room Air 03/09/25 08:22 03/09/25 08:42 03/09/25 09:02 Temperature Pulse Rate 74 69 72 Pulse Rate [Pulse Oximeter] Respiratory Rate Blood Pressure 138/86 134/92 H 137/99 H Blood Pressure [Ri ght Upper Arm] Pulse Oximetry 98 98 100 Oxygen Delivery Me thod 03/09/25 09:30 03/09/25 10:28 03/09/25 10:30 Temperature Pulse Rate 76 88 78 Pulse Rate [Pulse Oximeter] Respiratory Rate Blood Pressure 116/104 H Blood Pressure [Ri ght Upper Arm] Pulse Oximetry 99 98 92 Oxygen Delivery Me thod 03/09/25 11:02 03/09/25 11:30 03/09/25 11:45 Temperature Pulse Rate 76 82 78 Pulse Rate [Pulse Oximeter] Respiratory Rate Blood Pressure 126/86 Blood Pressure [Ri ght Upper Arm] Pulse Oximetry 100 100 100 Oxygen Delivery Me thod 03/09/25 12:00 03/09/25 12:02 03/09/25 12:30 Temperature Pulse Rate 81 82 83 Pulse Rate [Pulse Oximeter] Respiratory Rate Blood Pressure 116/83 Blood Pressure [Ri ght Upper Arm] Pulse Oximetry 99 99 97 Oxygen Delivery Me thod 03/09/25 13:02 Temperature 98.3 F Pulse Rate 73 Pulse Rate [Pulse Oximeter] Respiratory Rate 16 Blood Pressure 118/89 Blood Pressure [Ri ght Upper Arm] Pulse Oximetry 100 Oxygen Delivery Me thod <Carolyn Sandoval MD - Last Filed: 03/10/25 00:29> Vital Signs, click to edit/add: Vital Signs - 24 hr 03/09/25 06:25 03/09/25 07:27 03/09/25 08:02 Temperature 98 F Pulse Rate 74 Pulse Rate [Pulse Oximeter] 83 74 Respiratory Rate 16 16 Blood Pressure 138/94 H Blood Pressure [Ri ght Upper Arm] 134/110 H 128/90 H Pulse Oximetry 100 98 98 Oxygen Delivery Me thod Room Air Room Air 03/09/25 08:22 03/09/25 08:42 03/09/25 09:02 Temperature Pulse Rate 74 69 72 Pulse Rate [Pulse Oximeter] Respiratory Rate Blood Pressure 138/86 134/92 H 137/99 H Blood Pressure [Ri ght Upper Arm] Pulse Oximetry 98 98 100 Oxygen Delivery Me thod 03/09/25 09:30 03/09/25 10:28 03/09/25 10:30 Temperature Pulse Rate 76 88 78 Pulse Rate [Pulse Oximeter] Respiratory Rate Blood Pressure 116/104 H Blood Pressure [Ri ght Upper Arm] Pulse Oximetry 99 98 92 Oxygen Delivery Me thod 03/09/25 11:02 03/09/25 11:30 03/09/25 11:45 Temperature Pulse Rate 76 82 78 Pulse Rate [Pulse Oximeter] Respiratory Rate Blood Pressure 126/86 Blood Pressure [Ri ght Upper Arm] Pulse Oximetry 100 100 100 Oxygen Delivery Me thod 03/09/25 12:00 03/09/25 12:02 03/09/25 12:30 Temperature Pulse Rate 81 82 83 Pulse Rate [Pulse Oximeter] Respiratory Rate Blood Pressure 116/83 Blood Pressure [Ri ght Upper Arm] Pulse Oximetry 99 99 97 Oxygen Delivery Me thod 03/09/25 13:02 Temperature 98.3 F Pulse Rate 73 Pulse Rate [Pulse Oximeter] Respiratory Rate 16 Blood Pressure 118/89 Blood Pressure [[facility] Upper Arm] Pulse Oximetry 100 Oxygen Delivery Me thod <Carroll Esparza MD - Last Filed: 03/09/25 12:17> Documenting provider has reviewed patient's vital signs: yes <Carolyn Sandoval MD - Last Filed: 03/10/25 00:29> Common normals: no apparent distress <Carolyn Sandoval MD - Last Filed: 03/10/25 00:29> General appearance: well kempt <Carolyn Sandoval MD - Last Filed: 03/10/25 00:29> Other: Very friendly, cooperative and knowledgeable. <Carolyn Sandoval MD - Last Filed: 03/10/25 00:29> HENMT: Common normals: normocephalic and moist oral mucous membranes <Carolyn Sandoval MD - Last Filed: 03/10/25 00:29> Head and scalp: normocephalic <Carolyn Sandoval MD - Last Filed: 03/10/25 00:29> Mouth: oral and palatal mucosa normal <MD Alfa Davies Last Filed: 03/10/25 00:29> Eye: Common normals: conjunctivae normal <Carolyn Sandoval MD - Last Filed: 03/10/25 00:29> General eye: normal appearance of both eyes <Carolyn Sandoval MD - Last Filed: 03/10/25 00:29> Conjunctiva: conjunctiva(e) normal <Carolyn Sandoval MD - Last Filed: 03/10/25 00:29> Neck & C-Spine: Common normals: full ROM <MD Alfa Davies Last Filed: 03/10/25 00:29> General: normal visual inspection <MD Alfa Davies Last Filed: 03/10/25 00:29> Resp: Common normals: normal respiratory effort, no use of accessory muscles and clear to auscultation bilaterally <MD Alfa Davies Last Filed: 03/10/25 00:29> Effort & inspection: able to speak in complete sentences <MD Alfa Davies Last Filed: 03/10/25 00:29> Auscultation: clear to auscultation bilaterally <MD Alfa Davies Last Filed: 03/10/25 00:29> Cardio: Other: Irregular but positive S1 and S2. No obvious gallop. <MD Alfa Davies Last Filed: 03/10/25 00:29> GI: Common normals: Normal to inspection, nondistended, normoactive bowel sounds present, soft to palpation, non-tender, no hepatosplenomegaly and no masses <MD Alfa Davies Last Filed: 03/10/25 00:29> Palpation: soft and no hepatosplenomegaly <Carolyn Sandoval MD - Last Filed: 03/10/25 00:29> Other: Bladder not overly distended. Bladder scan reported to be 45 mL. <Carolyn Sandoval MD - Last Filed: 03/10/25 00:29> Extremity: Other: Trace bilateral edema, symmetric <MD Alfa Davies Last Filed: 03/10/25 00:29> Psych: Appearance: well kempt <Carolyn Sandoval MD - Last Filed: 03/10/25 00:29> Attitude: engaged <MD Alfa Davies Last Filed: 03/10/25 00:29> Activity/motor behavior: appropriate eye contact <MD Alfa Davies Last Filed: 03/10/25 00:29> Attention/concentration: attention grossly intact <MD Alfa Davies Last Filed: 03/10/25 00:29> Memory/cognition: memory grossly intact <MD Alfa Davies Last Filed: 03/10/25 00:29> Insight: insight good <MD Alfa Davies Last Filed: 03/10/25 00:29> Judgement: judgment good <Carolyn Sandoval MD - Last Filed: 03/10/25 00:29> Skin: Common normals: no rashes or lesions noted <Carolyn Sandoval MD - Last Filed: 03/10/25 00:29> General skin exam: no rashes or lesions noted <Carolyn Sandoval MD - Last Filed: 03/10/25 00:29> Course Course ED Course: 80-year-old male with history of radiation cystitis. Catheter dysfunction likely secondary to bleeding and clots. Recommend continuous bladder irrigation. Attempt to flush at the bedside was not successful. Counseled patient that if this is not successful, we will consult Urology and may require more urgent intervention. He verbalizes understanding and agreement of plan. Will obtain basic labs to double check his INR, CBC, metabolic panels and such. Anticipate handing over care to incoming day shift partner. Update: Asked patient about his last hemoglobin, the last 1 in our system was 14 but that was year and a half ago. Patient believes he may have had some done back in May with his primary care team but certainly none recent. He has five-point hemoglobin drop which I suspect is all just in the last couple of months. Remainder of labs are overall reassuring. Type and screen is ordered just in case we are not able to get bleeding to stop. <Carolyn Sandoval MD - Last Filed: 03/10/25 00:29> Vital Signs Vital signs: Initial Vital Signs Temperature 98 F 03/09/25 06:25 Temperature Source Temporal Artery Scan 03/09/25 06:25 Pulse Rate 83 03/09/25 06:25 Respiratory Rate 16 03/09/25 06:25 Blood Pressure 134/110 H 03/09/25 06:25 Blood Pressure Mean 118 H 03/09/25 06:25 Blood Pressure Position Semi-Fowlers 03/09/25 06:25 Pulse Oximetry 100 03/09/25 06:25 Oxygen Delivery Method Room Air 03/09/25 06:25 Vital Signs Temperature 98 F 03/09/25 06:25 Pulse Rate 83 03/09/25 06:25 Respiratory Rate 16 03/09/25 06:25 Blood Pressure 134/110 H 03/09/25 06:25 Pulse Oximetry 100 03/09/25 06:25 Oxygen Delivery Method Room Air 03/09/25 06:25 Temperature 98.3 F 03/09/25 13:02 Pulse Rate 73 03/09/25 13:02 Respiratory Rate 16 03/09/25 13:02 Blood Pressure 118/89 03/09/25 13:02 Pulse Oximetry 100 03/09/25 13:02 Oxygen Delivery Method Room Air 03/09/25 07:27 <Carolyn Sandoval MD - Last Filed: 03/10/25 00:29> Initial Vital Signs Temperature 98 F 03/09/25 06:25 Temperature Source Temporal Artery Scan 03/09/25 06:25 Pulse Rate 83 03/09/25 06:25 Respiratory Rate 16 03/09/25 06:25 Blood Pressure 134/110 H 03/09/25 06:25 Blood Pressure Mean 118 H 03/09/25 06:25 Blood Pressure Position Semi-Fowlers 03/09/25 06:25 Pulse Oximetry 100 03/09/25 06:25 Oxygen Delivery Method Room Air 03/09/25 06:25 Vital Signs Temperature 98 F 03/09/25 06:25 Pulse Rate 83 03/09/25 06:25 Respiratory Rate 16 03/09/25 06:25 Blood Pressure 134/110 H 03/09/25 06:25 Pulse Oximetry 100 03/09/25 06:25 Oxygen Delivery Method Room Air 03/09/25 06:25 Temperature 98.3 F 03/09/25 13:02 Pulse Rate 73 03/09/25 13:02 Respiratory Rate 16 03/09/25 13:02 Blood Pressure 118/89 03/09/25 13:02 Pulse Oximetry 100 03/09/25 13:02 Oxygen Delivery Method Room Air 03/09/25 07:27 <Carroll Esparza MD - Last Filed: 03/09/25 12:17> Medications Administered Medications: Discontinued Medications Generic Name Dose Route Start Last Admin Trade Name Freq PRN Reason Stop Dose Admin Lidocaine HCl 6 ml 03/09/25 07:17 03/09/25 07:20 Lidocaine Hcl 2 % Jelly (Top) Sterile UR 6 ml ONCE PRN Administration <Carolyn Sandoval MD - Last Filed: 03/10/25 00:29> Discontinued Medications Generic Name Dose Route Start Last Admin Trade Name Freq PRN Reason Stop Dose Admin Lidocaine HCl 6 ml 03/09/25 07:17 03/09/25 07:20 Lidocaine Hcl 2 % Jelly (Top) Sterile UR 6 ml ONCE PRN Administration <Carroll Esparza MD - Last Filed: 03/09/25 12:17> Medical Decision Making MDM Narrative Medical decision making narrative: Vilma -- In here to this patient at change of shift in the process of bladder irrigation for recurrent clots with history of anticoagulation with Coumadin with history of atrial fibrillation. History of prostate cancer surgery this about 3 years ago. Recently has been experiencing recurrent hematuria. Has been placed with a Awad at home is been irrigating but has become to plugged be able to handle at home. Arrives for care here in the emergency department. Has been irrigated with least 6 L at change of shift. Continue to monitor. Is now clotting off again the larger catheter. Anticipating admission for continuous Bladder irrigation. 5 gram hgb drop though unclear over what duration. discussed with our hospitalist. Concerns expressed that have been unable to control this bleeding with continuous bladder irrigation historically. It is my initial impression /understanding that he does have an appointment for hyperbaric treatment at [facility] tomorrow. Clarified later to consult but had already been communicating with [facility] and Urology and they are accepting in transfer of cares. Repeat hemoglobin 8.4. INR today was 2.1 <Carroll Esparza MD - Last Filed: 03/09/25 12:17> Medical Records Medical records reviewed: Yes I reviewed the patient's medical records <Carroll Esparza MD - Last Filed: 03/09/25 12:17> Lab Data Lab results reviewed: Yes I reviewed the patient's lab results <Carroll Esparza MD - Last Filed: 03/09/25 12:17> Labs: Lab Results 03/09/25 03/09/25 Range/Units 06:50 11:29 WBC 3.32 L (4.50-11.00) K/uL RBC 2.56 L (4.30-5.90) m/uL Hgb 9.0 L 8.4 L (13.5-17.5) gm/dL Hct 27.2 L (37.0-53.0) % MCV 106 H (80-100) fL MCH 35 H (26-34) pg MCHC 33 (32-36) gm/dL RDW Coeff of Cristina 14.2 (11.5-15.5) % Plt Count 136 L (140-440) K/uL Neut % (Auto) 59.7 (42.0-72.0) % Lymph % (Auto) 22.0 (20-44) % [place]ata[place]oula % (Auto) 12.0 H (0.0-11.0) % Eos % (Auto) 5.7 (0.0-7.0) % Baso % (Auto) 0.3 (0.0-3.0) % Neut # (Auto) 2.00 (1.7-7.0) K/uL Lymph # (Auto) 0.70 L (0.90-2.90) K/uL [place] # (Auto) 0.40 (0.00-0.90) K/UL Eos # (Auto) 0.20 (0.00-0.50) K/uL Baso # (Auto) 0.00 (0.00-0.30) K/uL Abs Immat Gran (auto) 0.00 (0.00-0.30) K/uL Imm/Tot Granulo (auto) 0.3 % INR 2.11 H (0.91-1.10) Sodium 137 (135-149) mmol/L Potassium 4.3 (3.6-5.1) mmol/L Chloride 102 (96-114) mmol/L Carbon Dioxide 31 (20-32) mmol/L Anion Gap 4 L (7-15) mEq/L BUN 21 (7-30) mg/dL Creatinine 1.2 (0.5-1.5) mg/dL Estimated Creat Clear 53.16 Estimated GFR 62 ml/min Glucose 109 (60-115) mg/dL Calcium 9.2 (8.4-10.6) mg/dL Total Bilirubin 0.8 (0.1-1.5) mg/dL AST 47 H (12-35) U/L ALT 31 (4-50) U/L Alkaline Phosphatase 88 (40-150) U/L Total Protein 6.0 (6.0-8.3) g/dL Albumin 3.8 (3.3-5.0) g/dL Blood Type B Positive Antibody Screen NEGATIVE <Carolyn Sandoval MD - Last Filed: 03/10/25 00:29> Lab Results 03/09/25 03/09/25 Range/Units 06:50 11:29 WBC 3.32 L (4.50-11.00) K/uL RBC 2.56 L (4.30-5.90) m/uL Hgb 9.0 L 8.4 L (13.5-17.5) gm/dL Hct 27.2 L (37.0-53.0) % MCV 106 H (80-100) fL MCH 35 H (26-34) pg MCHC 33 (32-36) gm/dL RDW Coeff of Cristina 14.2 (11.5-15.5) % Plt Count 136 L (140-440) K/uL Neut % (Auto) 59.7 (42.0-72.0) % Lymph % (Auto) 22.0 (20-44) % [place]oul[place] % (Auto) 12.0 H (0.0-11.0) % Eos % (Auto) 5.7 (0.0-7.0) % Baso % (Auto) 0.3 (0.0-3.0) % Neut # (Auto) 2.00 (1.7-7.0) K/uL Lymph # (Auto) 0.70 L (0.90-2.90) K/uL [place]oul[place] # (Auto) 0.40 (0.00-0.90) K/UL Eos # (Auto) 0.20 (0.00-0.50) K/uL Baso # (Auto) 0.00 (0.00-0.30) K/uL Abs Immat Gran (auto) 0.00 (0.00-0.30) K/uL Imm/Tot Granulo (auto) 0.3 % INR 2.11 H (0.91-1.10) Sodium 137 (135-149) mmol/L Potassium 4.3 (3.6-5.1) mmol/L Chloride 102 (96-114) mmol/L Carbon Dioxide 31 (20-32) mmol/L Anion Gap 4 L (7-15) mEq/L BUN 21 (7-30) mg/dL Creatinine 1.2 (0.5-1.5) mg/dL Estimated Creat Clear 53.16 Estimated GFR 62 ml/min Glucose 109 (60-115) mg/dL Calcium 9.2 (8.4-10.6) mg/dL Total Bilirubin 0.8 (0.1-1.5) mg/dL AST 47 H (12-35) U/L ALT 31 (4-50) U/L Alkaline Phosphatase 88 (40-150) U/L Total Protein 6.0 (6.0-8.3) g/dL Albumin 3.8 (3.3-5.0) g/dL Blood Type B Positive Antibody Screen NEGATIVE <Carroll Esparza MD - Last Filed: 03/09/25 12:17> Discharge Plan Discharge Clinical Impression: Hematuria, Anemia <Carolyn Sandoval MD - Last Filed: 03/10/25 00:29> Patient Disposition: [facility] <Carolyn Sandoval MD - Last Filed: 03/10/25 00:29> Condition: Stable <Carolyn Sandoval MD - Last Filed: 03/10/25 00:29>
[2025-03-09 07:07] LABS: Albumin* 3.8 g/dL (3.3-5.0); Chloride* 102 mmol/L (96-114)
[2025-03-09 07:08] LABS: Potassium* 4.3 mmol/L (3.6-5.1); Sodium* 137 mmol/L (135-149)
[2025-03-09 07:10] LABS: Alanine Aminotransferase* 31 U/L (4-50); Anion Gap 4 mEq/L (7-15); Aspartate Amino Transferase* 47 U/L (12-35); Blood Urea Nitrogen* 21 mg/dL (7-30); Carbon Dioxide* 31 mmol/L (20-32); Creatinine* 1.2 mg/dL (0.5-1.5); Est. Creatinine Clearance* 53.16; Estimated Glomerular Filt Rate 62 ml/min; INR 2.11 (0.91-1.10); Prothrombin Time 24.7 Seconds
[2025-03-09 07:11] LABS: Alkaline Phosphatase* 88 U/L (40-150); Bilirubin Total* 0.8 mg/dL (0.1-1.5); Calcium* 9.2 mg/dL (8.4-10.6); Glucose* 109 mg/dL (60-115); Total Protein* 6.0 g/dL (6.0-8.3)
--- OUTSIDE RECORDS SUMMARY | 2025-03-09 07:14 | XMS_ITS | CCD ---
Author Name Interface, [id number] lity Address [address] [place] [id number] [facility] Address [address] [place] [id number] Reason for Visit Social History Date Name Value 11/07/2024 Sex Unknown
--- OUTSIDE RECORDS SUMMARY | 2025-03-09 07:14 | XMS_ITS | CCD ---
Author Name Interface, [id number] lity Address [address] [place] [id number] [facility] Address [address] [place] [id number] Reason for Visit Social History Date Name Value 11/07/2024 Sex Unknown
[2025-03-09] MEDS: lidocaine HCL 2 % JELLY (TOP) STERILE 6 ML UR (07:20)
[2025-03-09 11:33] LABS: Hemoglobin* 8.4 gm/dL (13.5-17.5)
== END 2025-03-09 13:55 | disposition short-term general hospital (02) ==
PROVIDERS: Family Medicine; Emergency Provider Family Medicine; PCP Family Medicine
DX: T83.091A Other mechanical complication of indwelling urethral catheter, initial encounter (principal); R31.9 Hematuria, unspecified; D64.9 Anemia, unspecified; Z79.01 Long term (current) use of anticoagulants; Z85.46 Personal history of malignant neoplasm of prostate; Z86.79 Personal history of other diseases of the circulatory system; Z87.448 Personal history of other diseases of urinary system
CPT/HCPCS: 36415; 80053; 81003; 85018; 85025; 85610; 86850; 86900; 86901; 99284; 99285

== ENCOUNTER 2025-03-09 14:00 | Outpatient (CLI) | payer MEDICARE, SELFPAY | END 2025-03-09 14:01 | disposition home or self-care (01) | LOC: AMB 03-15 13:33 | PROVIDERS: PCP Family Medicine; Visit Provider Family Medicine | DX: R31.9 Hematuria, unspecified (principal); D64.9 Anemia, unspecified | CPT/HCPCS: A0425; A0427 ==